=== PATIENT | male | born 1930 | race Caucasian/White ===

== ENCOUNTER 2016-03-24 11:44 | Day surgery (SDC) | payer MEDICARE, OTHER ==
[2016-03-22 11:14] VITALS: BMI 24.6
[~2016-03-24 11:44] MED LIST: HEPARIN SODIUM,PORCINE 5,000 UNIT/ML 1 ML VIAL SQ ONE; LACTATED RINGERS 1,000 ML IV SCH; LIDOCAINE 1% 20 ML VIAL (10MG/ML) FOR IV START INTRADERMA PRN; ceFAZolin 2 GM in SODIUM CHLORIDE 0.9% 100 ML IVPB ONE
[2016-03-24 12:00] VITALS: RESP 16; TEMP 98
--- NOTE | 2016-03-24 12:57 | P.GSHP ---
History of Present Illness H&P Date: 03/24/16 Chief Complaint: pancreatic cancer patient here today for Port-A-Cath placement. He underwent a recent Whipple procedure for pancreatic cancer. He has not had a port before. He has already had 2 courses of Gemzar. His IV access is quite poor. Past Medical History Past Medical History: Atrial Flutter, Cancer, CVA/TIA, Deep Vein Thrombosis (DVT ), Eye Disorder, GERD/Reflux, Hyperlipidemia, Hypertension, Prostate Disorder, Pulmonary Embolus (PE), Thyroid Disorder Additional Past Medical History / Comment(s): Pancreatic cancer diagnosed December 2015- TIA/CVA 01/23/16-occ speech issue, , bilateral feet and leg neuropathy, 12-31-13 GAEL PE'S, PE in 1995, bilateral GLAUCOMA, SKIN CA, chronic R lower leg edema History of Any Multi-Drug Resistant Organisms: None Reported Past Surgical History: Appendectomy, Heart Catheterization, Orthopedic Surgery, Prostate Surgery Additional Past Surgical History / Comment(s): ERCP, FARIBA/cardioversion, tito filter, bilateral CATARACTS, colonoscopy , sinus surgery GANGLION CYSTS REMOVED LT WRIST, numerous skin cancer removals.whipple surgery 01/21/16 at [place], Past Anesthesia/Blood Transfusion Reactions: No Reported Reaction Past Psychological History: No Psychological Hx Reported Additional Psychological History / Comment(s): . Smoking Status: Former smoker Past Alcohol Use History: Rare Additional Past Alcohol Use History / Comment(s): STARTED SMOKING AT AGE 9 SMOKED, 1PPD, QUIT 1971 Past Drug Use History: None Reported - Past Family History Brother(s) Additional Family Medical History / Comment(s): AAA with stent Father Family Medical History: Myocardial Infarction ([place]) Additional Family Medical History / Comment(s): [place] AT 75 Mother Family Medical History: No Reported History Additional Family Medical History / Comment(s): AT AGE 79, COMPLICATIONS FROM ALZHIEMERS. Medications and Allergies Home Medications Medication Instructions Recorded Confirmed Type Fluticasone Propionate [Flonase] 1 - 2 spray EA NOSTRIL HS PRN 12/31/13 History Latanoprost Ophth [Xalatan 0.005%] 1 drops BOTH EYES HS 12/31/13 03/22/16 History Pregabalin [Lyrica] 75 mg PO 1200 12/31/13 03/22/16 History Levothyroxine Sodium [Synthroid] 50 mcg PO DAILY 03/28/14 03/22/16 History Furosemide [Lasix] 20 mg PO DAILY@1200 12/20/15 03/22/16 History NIFEdipine [NIFEdipine ER] 60 mg PO DAILY 12/20/15 03/22/16 History Omeprazole 20 mg PO DAILY PRN 12/20/15 03/22/16 History Temazepam [Restoril] 15 mg PO HS PRN 12/20/15 03/24/16 History HYDROcodone/APAP 5-325MG [[place] 1 tab PO TID PRN 01/07/16 03/24/16 History 5-325] Multivitamins, Thera [Multivitamin] 0.5 tab PO DAILY 01/07/16 03/22/16 History Amiodarone [Cordarone] 100 mg PO DAILY 03/22/16 03/22/16 History Aspirin [Adult Low Dose Aspirin EC] 81 mg PO DAILY 03/22/16 03/22/16 History Pregabalin [Lyrica] 75 mg PO HS 03/22/16 03/22/16 History Simvastatin [Zocor] 20 mg PO HS 03/22/16 03/22/16 History Allergies Allergy/AdvReac Type Severity Reaction Status Date / Time morphine Allergy Confusion Verified 03/22/16 11:00 Surgical - Exam Vital Signs Temp Pulse Resp BP Pulse Ox 98 F 87 16 143/83 97 03/24/16 11:57 03/24/16 11:57 03/24/16 11:57 03/24/16 11:57 03/24/16 11:57 Physical exam: General: Well-developed, well-nourished HEENT: Normocephalic, sclerae nonicteric Abdomen: Nontender, nondistended, recent scars noted Extremities: No edema Neuro: Alert and oriented Assessment and Plan (1) Pancreatic cancer Narrative/Plan: Will proceed with Port-A-Cath placement at this time. Risks of bleeding, infection, pneumothorax, DVT, catheter malfunction were discussed. He understands and wishes to proceed. Status: Acute
[2016-03-24] MEDS ORDERED: MIDAZOLAM 2 MG/2 ML VIAL ONE (13:15)
[2016-03-24] MEDS ORDERED: fentaNYL (PF) 50 MCG/ML 2 ML AMP ONE (13:15)
[2016-03-24] MEDS ORDERED: PROPOFOL 10 MG/ML 20 ML VIAL IV ONE (13:15)
[2016-03-24] MEDS ORDERED: LIDOCAINE 1% INJ 10MG/ML (20 ML MDV) SQ ONE ×2 (13:36)
[2016-03-24] MEDS ORDERED: HEPARIN SODIUM,PORCINE 100 UNIT/ML 5 ML VIAL IV ONE ×2 (13:36)
[2016-03-24] MEDS ORDERED: HYDROcodone/APAP 5-325MG 1 EACH TAB PO PRN (14:04)
[2016-03-24] MEDS ORDERED: NALOXONE 0.4 MG/ML 1 ML VIAL IV PRN (14:04)
--- NOTE | 2016-03-24 14:06 | P.PCN ---
Date of Procedure: 03/24/16 Procedure(s) Performed: PREOPERATIVE DIAGNOSIS: Pancreatic cancer POSTOPERATIVE DIAGNOSIS: Same PROCEDURE: Port-A-Cath placement SURGEON: Chester EBL: Minimal ANESTHESIA: Sedation COMPLICATIONS: None OPERATIVE PROCEDURE: Patient was brought and placed on the operative table in the supine position. The patient was sedated per anesthesia that time. The chest and neck were prepped and draped in usual sterile fashion. The ultrasound probe was used to identify the location of the right internal jugular vein. The skin was localized with lidocaine. The Seldinger needle was advanced into the IJ under ultrasound guidance. The wire was advanced through the needle under fluoroscopic guidance into the superior vena cava. A port pocket was created in the right infraclavicular location. The catheter was tunneled from the wire entrance site to the port pocket. The port was then connected to the catheter. The dilator introducer was threaded over the guidewire. The guidewire and dilator were then removed. The catheter was advanced through the introducer and introducer was then removed. The tip was seen to be in the right atrial junction. Port was flushed with both saline and a Hep-Lock solution. There was good flow both in and out of the port. The port was sutured in underlying tissues using 3-0 silk sutures. The subcutaneous tissues were reapproximated using 3-0 Vicryl sutures and the skin at both locations using 4-0 Monocryl sutures. Steri-Strips and sterile dressings then applied. DISPOSITION: Stable to recovery room
--- NOTE | 2016-03-24 14:29 | XR ---
EXAMINATION TYPE: XR chest 1V confirm line [facility] DATE OF EXAM: 03/24/2016 2:21 PM COMPARISON: Prior chest x-ray third of January 2016 HISTORY: Status post central venous catheter placement TECHNIQUE: Single frontal view of the chest is obtained. FINDINGS: Port-A-Cath has been placed with the port in the right pectoral region, distal tip the cat heter via jugular approach is coursing toward the level of superior vena cava and cavoatrial junction , distal tip not well seen. No pneumothorax or pleural effusion. IMPRESSION: No evident complication status post central catheter placement.
--- NOTE | 2016-03-24 14:34 | FL ---
Fluoroscopy HISTORY: Pain 17 seconds fluoroscopy time supplied to the referring clinician. 2 intraoperative C-arm images docum ent the procedure. See dictated report from general surgery.
[2016-03-24 14:45] VITALS: BP 115/64; PULSE 87
== END 2016-03-24 15:08 | disposition home or self-care (01) ==
LOC: OR 11:44
PROVIDERS: ATTEND Surgery
DX: Z46.89 Encounter for fitting and adjustment of other specified devices (principal); C25.9 Malignant neoplasm of pancreas, unspecified; I10 Essential (primary) hypertension; N40.0 Benign prostatic hyperplasia without lower urinary tract symptoms; E78.5 Hyperlipidemia, unspecified; I48.92 Unspecified atrial flutter; K21.9 Gastro-esophageal reflux disease without esophagitis; Z86.718 Personal history of other venous thrombosis and embolism; Z86.711 Personal history of pulmonary embolism; Z79.891 Long term (current) use of opiate analgesic; Z79.899 Other long term (current) drug therapy; Z79.01 Long term (current) use of anticoagulants; Z79.82 Long term (current) use of aspirin; Z79.51 Long term (current) use of inhaled steroids; Z87.891 Personal history of nicotine dependence; Z82.49 Family history of ischemic heart disease and other diseases of the circulatory system; Z88.8 Allergy status to other drugs, medicaments and biological substances
CPT/HCPCS: 36556; 77001; C1788; J2250; J1644; J1642; J0690; J2001; J3010; J2704; 99152; 99153

== ENCOUNTER 2016-03-31 06:55 | Inpatient (IN) | payer MEDICARE, OTHER ==
--- NOTE | 2016-03-31 07:36 | ED ---
General Adult HPI - General Chief complaint: GI Bleed Stated complaint: rectal bleed Time Seen by Provider: 03/31/16 07:00 Source: patient, RN notes reviewed Mode of arrival: ambulatory Limitations: no limitations - History of Present Illness Initial comments: This is an 85-year-old male who presents emergency Department complaining he had some bright red blood when he had a bowel movement this morning. Patient states she's been constipated for quite a while now ever since he had a crit of cancer surgery. Patient states he has been on multiple laxatives and stool softeners but nothing appears to be working. Patient does not have any previous history of GI bleeds. Patient states long time ago he did have hemorrhoids but has not had any problem with that recently. Patient states his stool are very hard and small when he does have a bowel movement. Patient denies any lightheadedness or dizziness. Patient denies any fatigue or weakness. Patient denies any chest pain shortness of breath or difficulty breathing. Patient denies any abdominal pain. Patient denies headache patient denies numbness weakness. Patient denies any recent fever or chills - Related Data Home Medications Medication Instructions Recorded Confirmed Fluticasone Propionate [Flonase] 1 - 2 spray EA NOSTRIL HS PRN 12/31/13 03/31/16 Latanoprost Ophth [Xalatan 0.005%] 1 drops BOTH EYES HS 12/31/13 03/31/16 Pregabalin [Lyrica] 75 mg PO BID 12/31/13 03/31/16 Levothyroxine Sodium [Synthroid] 50 mcg PO DAILY 03/28/14 03/31/16 Furosemide [Lasix] 20 mg PO DAILY@1200 12/20/15 03/31/16 NIFEdipine [NIFEdipine ER] 60 mg PO DAILY 12/20/15 03/31/16 Omeprazole 20 mg PO DAILY PRN 12/20/15 03/31/16 Temazepam [Restoril] 15 mg PO HS PRN 12/20/15 03/31/16 HYDROcodone/APAP 5-325MG [[place] 1 tab PO TID PRN 01/07/16 03/31/16 5-325] Amiodarone [Cordarone] 100 mg PO DAILY 03/22/16 03/31/16 Aspirin [Adult Low Dose Aspirin EC] 81 mg PO DAILY 03/22/16 03/31/16 Simvastatin [Zocor] 20 mg PO HS 03/22/16 03/31/16 Hydrocodone/Acetaminophen [[place] 1 - 2 tab PO Q4HR PRN 03/31/16 03/31/16 5-325] Previous Rx's Medication Instructions Recorded Rivaroxaban [Xarelto] 15 mg PO W/SUPPER tab 12/22/15 Allergies Allergy/AdvReac Type Severity Reaction Status Date / Time morphine Allergy Confusion Verified 03/31/16 07:03 Review of Systems ROS Statement: Those systems with pertinent positive or pertinent negative responses have been documented in the HPI. ROS Other: All systems not noted in ROS Statement are negative. Past Medical History Past Medical History: Atrial Flutter, Cancer, CVA/TIA, Deep Vein Thrombosis (DVT ), Eye Disorder, GERD/Reflux, Hyperlipidemia, Hypertension, Prostate Disorder, Pulmonary Embolus (PE), Thyroid Disorder Additional Past Medical History / Comment(s): Pancreatic cancer diagnosed December 2015- TIA/CVA 01/23/16-occ speech issue, , bilateral feet and leg neuropathy, 12-31-13 GAEL PE'S, PE in 1995, bilateral GLAUCOMA, SKIN CA, chronic R lower leg edema History of Any Multi-Drug Resistant Organisms: None Reported Past Surgical History: Appendectomy, Heart Catheterization, Orthopedic Surgery, Prostate Surgery Additional Past Surgical History / Comment(s): ERCP, FARIBA/cardioversion, tito filter, bilateral CATARACTS, colonoscopy , sinus surgery GANGLION CYSTS REMOVED LT WRIST, numerous skin cancer removals.whipple surgery 01/21/16 at [place], Past Anesthesia/Blood Transfusion Reactions: No Reported Reaction Past Psychological History: No Psychological Hx Reported Additional Psychological History / Comment(s): . Smoking Status: Former smoker Past Alcohol Use History: Rare Additional Past Alcohol Use History / Comment(s): STARTED SMOKING AT AGE 9 SMOKED, 1PPD, QUIT 1970 Past Drug Use History: None Reported - Past Family History Brother(s) Additional Family Medical History / Comment(s): AAA with stent Father Family Medical History: Myocardial Infarction ([place]) Additional Family Medical History / Comment(s): [place] AT 75 Mother Family Medical History: No Reported History Additional Family Medical History / Comment(s): AT AGE 79, COMPLICATIONS FROM ALZHIEMERS. General Exam - General Exam Comments Initial Comments: GENERAL: Patient is well-developed and well-nourished. Patient is nontoxic and well- hydrated and is in no acute distress. Patient was sitting in bed reading this. When I entered the room ENT: Neck is soft and supple. No significant lymphadenopathy is noted. Oropharynx is clear. Moist mucous membranes. Neck has full range of motion without eliciting any pain. EYES: The sclera were anicteric and conjunctiva were pink and moist. Extraocular movements were intact and pupils were equal round and reactive to light. Eyelids were unremarkable. PULMONARY: Unlabored respirations. Good breath sounds bilaterally. No audible rales rhonchi or wheezing was noted. CARDIOVASCULAR: There is a regular rate and rhythm without any murmurs gallops or rubs. ABDOMEN: Soft and nontender with normal bowel sounds. No palpable organomegaly was noted. There is no palpable pulsatile mass. Rectal On rectal exam there was no obvious hemorrhoid noted I did a digital rectal examination done no bright red blood. SKIN: Skin is clear with no lesions or rashes and otherwise unremarkable. NEUROLOGIC: Patient is alert and oriented x3. Cranial nerves II through XII are grossly intact. Motor and sensory are also intact. Normal speech, volume and content. Symmetrical smile. MUSCULOSKELETAL: Normal extremities with adequate strength and full range of motion. No lower extremity swelling or edema. No calf tenderness. LYMPHATICS: No significant lymphadenopathy is noted PSYCHIATRIC: Normal psychiatric evaluation. Limitations: no limitations Course Vital Signs 03/31/16 03/31/16 07:00 08:51 Temperature 97.0 F L Pulse Rate 53 L 64 Respiratory 18 17 Rate Blood Pressure 107/65 113/75 O2 Sat by Pulse 93 L 96 Oximetry Medical Decision Making - Medical Decision Making Hemoglobin was 15.1 and January yesterday patient's hemoglobin was drawn it was 12.6 and today when we kasey it was 11.4 this in combination with the fact the patient is on Xarelto and is having bright red blood per rectum I thought it was important to keep the patient and make sure his hemoglobin was continuing to drop. I spoke with Dr. Dr. Shine and he agreed to admit the patient I wrote admitting orders. - Lab Data Result diagrams: 03/31/16 07:47 03/31/16 07:47 Lab Results 03/31/16 03/31/16 03/31/16 Range/Units 07:47 07:47 07:47 WBC 7.7 (3.8-10.6) k/uL RBC 3.93 L (4.30-5.90) m/uL Hgb 11.4 L (13.0-17.5) gm/dL Hct 35.0 L (39.0-53.0) % MCV 89.0 (80.0-100.0) fL MCH 29.1 (25.0-35.0) pg MCHC 32.7 (31.0-37.0) g/dL RDW 13.6 (11.5-15.5) % Plt Count 193 (150-450) k/uL Neutrophils % 90 % Lymphocytes % 6 % Monocytes % 4 % Eosinophils % 0 % Basophils % 0 % Neutrophils # 7.0 (1.3-7.7) k/uL Lymphocytes # 0.4 L (1.0-4.8) k/uL Monocytes # 0.3 (0-1.0) k/uL Eosinophils # 0.0 (0-0.7) k/uL Basophils # 0.0 (0-0.2) k/uL PT 12.6 H (9.0-12.0) sec INR 1.3 (<1.1) APTT 30.4 H (22.0-30.0) sec Sodium 136 L (137-145) mmol/L Potassium 4.2 (3.5-5.1) mmol/L Chloride 102 (98-107) mmol/L Carbon Dioxide 21 L (22-30) mmol/L Anion Gap 13 mmol/L BUN 14 (9-20) mg/dL Creatinine 0.91 (0.66-1.25) mg/dL Est GFR (MDRD) Af Amer >60 (>60 ml/min/1.73 sqM) Est GFR (MDRD) Non-Af >60 (>60 ml/min/1.73 sqM) Glucose 162 H (74-99) mg/dL Calcium 8.4 (8.4-10.2) mg/dL Total Bilirubin 0.9 (0.2-1.3) mg/dL AST 41 (17-59) U/L ALT 39 (21-72) U/L Alkaline Phosphatase 103 (38-126) U/L Total Protein 5.3 L (6.3-8.2) g/dL Albumin 2.8 L (3.5-5.0) g/dL Disposition Clinical Impression: Lower gastrointestinal hemorrhage Disposition: ADMITTED IP TO THIS HOSP Time of Disposition: 10:00
[2016-03-31 07:59] LABS: Basophils % (A) 0 %; CHCM 32.7; Eosinophils % (A) 0 %; HDW 2.52; HGB 11.4 gm/dL (13.0-17.5); Luc # (Auto) 0.02; Luc % (Auto) 0; Lymphocytes # (A) 0.4 k/uL (1.0-4.8); Lymphocytes % (A) 6 %; MCH 29.1 pg (25.0-35.0); MCHC 32.7 g/dL (31.0-37.0); Mean Platelet Volume 7.9; Monocytes # (A) 0.3 k/uL (0-1.0); Monocytes % (A) 4 %; Neutrophils % (A) 90 %; RBC 3.93 m/uL (4.30-5.90); RDW 13.6 % (11.5-15.5); WBC 7.7 k/uL (3.8-10.6); WBC (Perox) 8.09
[2016-03-31 08:08] LABS: ALT 39 U/L (21-72); AST 41 U/L (17-59); Alkaline Phosphatase 103 U/L (38-126); Anion Gap 13 mmol/L; Blood Urea Nitrogen 14 mg/dL (9-20); Calcium 8.4 mg/dL (8.4-10.2); Carbon Dioxide 21 mmol/L (22-30); Chloride 102 mmol/L (98-107); Glucose 162 mg/dL (74-99); INR 1.3 (<1.1); Non-African American GFR(MDRD) >60 (>60 ml/min/1.73 sqM); Partial Thromboplastin Time 30.4 sec (22.0-30.0); Potassium 4.2 mmol/L (3.5-5.1); Prothrombin Time 12.6 sec (9.0-12.0); Sodium 136 mmol/L (137-145); Total Bilirubin 0.9 mg/dL (0.2-1.3); Total Protein 5.3 g/dL (6.3-8.2)
--- NOTE | 2016-03-31 09:50 | XR ---
Abdomen HISTORY: Rectal bleeding, pain, pancreatic cancer Frontal view of the abdomen submitted on [address] abdomen and pelvis the 2015 Lung bases are clear. Patient is rotated. There may be spinal curvature, degenerative disc changes in the visualized lumbar spine.. Inferior vena cava filter is in place and is tilted. There is retained fecal debris present throughout the distribution of the colon. No pneumoperitoneum or bowel obstruct ion evident. IMPRESSION: No acute abnormalities evident.
[2016-03-31] MEDS ORDERED: SODIUM CHLORIDE 0.9% 1,000 ML IV ONE (10:00)
[2016-03-31] MEDS ORDERED: HYDROcodone/APAP 5-325MG 1 EACH TAB PO PRN ×2 (12:28→20:10)
[2016-03-31] MEDS ORDERED: TEMAZEPAM 15 MG CAP PO PRN (12:28)
[2016-03-31] MEDS ORDERED: PANTOPRAZOLE 40 MG TABLET PO PRN (12:28)
[2016-03-31] MEDS ORDERED: FLUTICASONE 50MCG/SPRAY NASAL 16GM EA NOSTRIL PRN (12:28)
[2016-03-31 15:23] LABS: Basophils % (A) 0 %; CH 28.8; CHCM 31.6; Eosinophils % (A) 0 %; HCT 35.6 % (39.0-53.0); HDW 2.44; HGB 11.5 gm/dL (13.0-17.5); Luc # (Auto) 0.05; Luc % (Auto) 1; Lymphocytes # (A) 0.8 k/uL (1.0-4.8); Lymphocytes % (A) 12 %; MCH 29.4 pg (25.0-35.0); MCHC 32.2 g/dL (31.0-37.0); MCV 91.3 fL (80.0-100.0); Mean Platelet Volume 7.2; Monocytes # (A) 0.2 k/uL (0-1.0); Monocytes % (A) 4 %; Neutrophils # (A) 5.6 k/uL (1.3-7.7); Neutrophils % (A) 83 %; RDW 14.4 % (11.5-15.5); WBC 6.8 k/uL (3.8-10.6); WBC (Perox) 6.95
[2016-03-31] MEDS: FUROSEMIDE 20 MG TAB PO SCH (15:52)
[2016-03-31] MEDS: AMIODARONE 100 MG TAB PO SCH (15:53)
[2016-03-31] MEDS: PREGABALIN 75 MG CAP PO SCH (20:08)
[2016-03-31] MEDS: LATANOPROST 0.005% OPHTH DROPS 2.5 ML BTL BOTH EYES SCH (20:08)
[2016-03-31 21:16] LABS: Basophils % (A) 0 %; CHCM 32.3; Eosinophils % (A) 1 %; HCT 31.3 % (39.0-53.0); HDW 2.48; Luc # (Auto) 0.02; Luc % (Auto) 1; Lymphocytes # (A) 0.9 k/uL (1.0-4.8); Lymphocytes % (A) 20 %; MCH 28.6 pg (25.0-35.0); MCHC 31.7 g/dL (31.0-37.0); MCV 90.2 fL (80.0-100.0); Mean Platelet Volume 7.5; Monocytes # (A) 0.2 k/uL (0-1.0); Monocytes % (A) 4 %; Neutrophils # (A) 3.3 k/uL (1.3-7.7); Neutrophils % (A) 75 %; RBC 3.47 m/uL (4.30-5.90); RDW 14.2 % (11.5-15.5); WBC 4.4 k/uL (3.8-10.6); WBC (Perox) 4.33
[2016-03-31] MEDS: ATORVASTATIN 10 MG TAB PO SCH (21:18)
[2016-03-31 21:30] LABS: HGB 9.9 gm/dL (13.0-17.5)
[2016-03-31 22:09] VITALS: RESP 16
[2016-04-01] MEDS: LEVOTHYROXINE 50 MCG TAB PO SCH (05:39)
[2016-04-01 06:42] LABS: Basophils % (A) 0 %; CH 28.8; CHCM 32.1; Eosinophils # (A) 0.1 k/uL (0-0.7); Eosinophils % (A) 1 %; HDW 2.52; HGB 9.7 gm/dL (13.0-17.5); Luc # (Auto) 0.02; Luc % (Auto) 1; Lymphocytes # (A) 0.7 k/uL (1.0-4.8); Lymphocytes % (A) 21 %; MCH 28.2 pg (25.0-35.0); MCHC 31.3 g/dL (31.0-37.0); Mean Platelet Volume 7.7; Monocytes # (A) 0.1 k/uL (0-1.0); Monocytes % (A) 2 %; Neutrophils # (A) 2.6 k/uL (1.3-7.7); Neutrophils % (A) 75 %; RBC 3.45 m/uL (4.30-5.90); RDW 14.2 % (11.5-15.5); WBC 3.5 k/uL (3.8-10.6); WBC (Perox) 3.31
[2016-04-01 07:01] LABS: ALT 50 U/L (21-72); AST 50 U/L (17-59); Alkaline Phosphatase 84 U/L (38-126); Anion Gap 4 mmol/L; Blood Urea Nitrogen 12 mg/dL (9-20); Calcium 7.6 mg/dL (8.4-10.2); Carbon Dioxide 27 mmol/L (22-30); Chloride 107 mmol/L (98-107); Glucose 82 mg/dL (74-99); Non-African American GFR(MDRD) >60 (>60 ml/min/1.73 sqM); Potassium 3.9 mmol/L (3.5-5.1); Sodium 138 mmol/L (137-145); Total Bilirubin 0.4 mg/dL (0.2-1.3); Total Protein 4.3 g/dL (6.3-8.2)
[2016-04-01] MEDS: AMIODARONE 100 MG TAB PO SCH (09:20)
[2016-04-01] MEDS: PREGABALIN 75 MG CAP PO SCH ×2 (09:20→20:08)
--- NOTE | 2016-04-01 09:47 | P.HPIM ---
History of Present Illness H&P Date: 03/31/16 Chief Complaint: Rectal bleed, pancreatic cancer, A. fib, hypertension, hyperlipidemia 85-year-old male one of Dr. Mathews patient with past medical history of A. fib, hypothyroidism, hypertension, previous history of CVA/TIA previous history of the venous thromboses and pulmonary embolism who had history of prostate cancer as well as was diagnosed with pancreatic cancer in December 2015 after he was admitted to or service in December for pancreatitis and ended up going for ERCP and diagnosis was made at the time patient was referred to [facility] and ended up having Whipple surgery and refer back to Dr. Willson for chemotherapy. Patient had chemotherapy the last 2 weeks with no major complication. Patient presented to the emergency department at [facility] this morning with complaint of rectal bleed and bright red blood per rectum was over half cup at the time with significant hemoglobin drop almost 2 g in the last 2 weeks with no finding of hemorrhoid at the time. Apparently had quite bit constipation and had part-time with his bowel movement yesterday. Patient was examined emergency department and with the significant drop in his hemoglobin being on anticoagulation with his current history decided to admit patient to the hospital we'll consult Dr. Cerda or possible sigmoidoscopy if needed and try to watch his hemoglobin in the next 24 hours. Continue supportive care and fluid resuscitation. Review of Systems Constitutional: Reports fatigue, Reports malaise, Reports poor appetite, Reports weight loss, Denies as per HPI, Denies anorexia, Denies chills, Denies chronic headaches, Denies chronic pain, Denies daytime sleepiness, Denies fever , Denies lethargy, Denies night sweats, Denies sweats, Denies weakness, Denies weight gain Eyes: bilateral as per HPI Ears: bilateral: decreased hearing Ears, nose, mouth and throat: Reports ant. neck pain, Reports nasal congestion, Reports nasal discharge, Reports neck fullness/pressure, Reports sinus pain, Reports sinus pressure, Denies as per HPI, Denies bleeding gums, Denies dental pain, Denies dysphagia, Denies epistaxis, Denies headache, Denies hoarseness, Denies mouth pain, Denies neck lump, Denies nose pain, Denies odynophagia, Denies post-nasal drip, Denies swelling in mouth, Denies swelling in throat, Denies sore throat, Denies vertigo, Denies voice changes Cardiovascular: Reports orthopnea, Reports palpitations, Denies as per HPI, Denies chest pain, Denies claudication, Denies decreased exercise tolerance, Denies dyspnea on exertion, Denies edema, Denies high blood pressure, Denies irregular heart beat, Denies leg edema, Denies lightheadedness, Denies paroxysmal nocturnal dyspnea, Denies phlebitis, Denies rapid heart beat, Denies shortness of breath, Denies syncope Respiratory: Denies as per HPI, Denies congestion, Denies cough, Denies cough with sputum, Denies dyspnea, Denies excessive sputum, Denies hemoptysis, Denies home oxygen, Denies pain, Denies pain on inspiration, Denies pleurisy, Denies respiratory infections, Denies sleep apnea, Denies snoring, Denies wheezing Gastrointestinal: Reports abdominal pain, Reports bloating, Reports BRBPR, Reports constipation, Reports nausea, Denies as per HPI, Denies belching, Denies change in bowel habits, Denies coffee ground emesis, Denies diarrhea, Denies dyspepsia, Denies early satiety, Denies excessive gas, Denies heartburn, Denies hematemesis, Denies hematochezia, Denies indigestion, Denies jaundice, Denies lactose intolerance, Denies loss of appetite, Denies melena, Denies vomiting Genitourinary: Denies as per HPI, Denies decreased libido, Denies difficulties fathering child, Denies discharge, Denies dysuria, Denies erectile dysfunction, Denies flank pain, Denies genital pain, Denies genital sores, Denies hematuria, Denies impotence, Denies incontinence, Denies kidney stones, Denies nocturia, Denies polyuria, Denies testicular lump, Denies testicular pain, Denies urinary frequency, Denies urinary hesitancy, Denies urinary retention Musculoskeletal: Reports leg numbness/tingling, Reports myalgias, Reports neck pain, Denies as per HPI, Denies arm numbness/tingling, Denies atrophy, Denies fractures, Denies frequent falls, Denies gait dysfunction, Denies hot joints, Denies limitation of motion, Denies loss of height, Denies low back pain, Denies morning stiffness, Denies muscle cramps, Denies muscle weakness, Denies neck stiffness, Denies prior amputations, Denies redness of joints, Denies shooting arm pain, Denies shooting leg pain Musculoskeletal: bilateral: ankle pain Integumentary: Reports rash, Reports sores, Denies as per HPI, Denies acne, Denies boils, Denies brittle nails, Denies change in hair/nails, Denies color changes, Denies darkening of skin, Denies depigmentation, Denies dryness, Denies foot/leg ulcers, Denies growths, Denies hirsutism, Denies lesions, Denies onychomycosis, Denies pruritus, Denies striae, Denies unusual bruising, Denies wounds Neurological: Reports numbness, Reports paresthesias, Reports tingling, Denies as per HPI, Denies aphasia, Denies ataxia, Denies balance difficulties, Denies burning pain, Denies change in mentation, Denies change in smell/taste, Denies change in speech, Denies confusion, Denies convulsions, Denies double vision, Denies gait dysfunction, Denies head injury, Denies headaches, Denies hearing difficulties, Denies lack of coordination, Denies loss of vision, Denies memory loss, Denies migraines, Denies motor disturbance, Denies paralysis, Denies seizures, Denies sensory deficit, Denies spasticity, Denies syncope, Denies tic , Denies transient paralysis, Denies tremors, Denies vertigo, Denies weakness, Denies visual changes Psychiatric: Reports anhedonia, Reports anxiety, Reports depression, Reports disorientation, Reports hopelessness, Reports memory loss, Denies as per HPI, Denies anxiety attacks, Denies change in appetite, Denies change in libido, Denies change in sleep habits, Denies confusion, Denies difficulty concentrating , Denies hallucinations, Denies hypersomnia, Denies insomnia, Denies irritability, Denies mood swings, Denies paranoia, Denies sadness/tearfulness, Denies sleep disturbances, Denies suicidal ideation Endocrine: Reports excessive thirst, Reports fatigue, Reports nocturia, Reports palpitations, Reports polydipsia, Denies as per HPI, Denies cold intolerance, Denies deepening of the voice, Denies excessive sweating, Denies flushing, Denies heat intolerance, Denies high blood sugars, Denies increase in ring/shoe/ hat size, Denies low blood sugars, Denies polyphagia, Denies polyuria, Denies proptosis, Denies recent glucocorticoid use, Denies thyroid mass, Denies weight change Hematologic/Lymphatic: Reports easy bruising, Denies as per HPI, Denies easy bleeding, Denies lymphadenopathy, Denies lymphedema, Denies thrombophilia Allergic/Immunologic: Reports allergic rhinitis, Denies as per HPI, Denies anaphylaxis, Denies angioedema, Denies gluten intolerance, Denies persistent infections, Denies seasonal allergies, Denies urticaria, Denies wheezing Past Medical History Past Medical History: Atrial Flutter, Cancer, CVA/TIA, Deep Vein Thrombosis (DVT ), Eye Disorder, GERD/Reflux, Hyperlipidemia, Hypertension, Prostate Disorder, Pulmonary Embolus (PE), Thyroid Disorder Additional Past Medical History / Comment(s): Pancreatic cancer diagnosed December 2015-whipple surgery/chemo-gemzar last received 03/30/16, TIA/CVA -occ speech issue, , bilateral feet and leg neuropathy, 12-31-13 GAEL PE'S, PE in 1995, DVT R leg, bilateral GLAUCOMA, SKIN CA, chronic R lower leg edema, constipation, BPH with surgery. History of Any Multi-Drug Resistant Organisms: None Reported Past Surgical History: Appendectomy, Heart Catheterization, Orthopedic Surgery, Prostate Surgery Additional Past Surgical History / Comment(s): ERCP, FARIBA/cardioversion, tito filter, bilateral CATARACTS, colonoscopy , sinus sx, GANGLION CYSTS REMOVED LT WRIST, numerous skin cancer removals, whipple surgery 01/21/16 at [place], 03/24/16 port a cath R subclavian. Past Anesthesia/Blood Transfusion Reactions: No Reported Reaction Past Psychological History: No Psychological Hx Reported Additional Psychological History / Comment(s): Pt resides with his spouse. Lately, he has been ambulating with a cane. He drives. No home care. Smoking Status: Former smoker Past Alcohol Use History: Rare Additional Past Alcohol Use History / Comment(s): STARTED SMOKING AT AGE 9 SMOKED, 1PPD, QUIT 1971 Past Drug Use History: None Reported - Past Family History Brother(s) Additional Family Medical History / Comment(s): AAA with stent Father Family Medical History: Myocardial Infarction ([place]) Additional Family Medical History / Comment(s): [place] AT 75 Mother Family Medical History: No Reported History Additional Family Medical History / Comment(s): AT AGE 79, COMPLICATIONS FROM ALZHIEMERS. Medications and Allergies Home Medications Medication Instructions Recorded Confirmed Type Fluticasone Propionate [Flonase] 1 - 2 spray EA NOSTRIL HS PRN 12/31/13 History Latanoprost Ophth [Xalatan 0.005%] 1 drops BOTH EYES HS 12/31/13 03/31/16 History Pregabalin [Lyrica] 75 mg PO BID 12/31/13 03/31/16 History Levothyroxine Sodium [Synthroid] 50 mcg PO DAILY 03/28/14 03/31/16 History Furosemide [Lasix] 20 mg PO DAILY@1200 12/20/15 03/31/16 History NIFEdipine [NIFEdipine ER] 60 mg PO DAILY 12/20/15 03/31/16 History Omeprazole 20 mg PO DAILY PRN 12/20/15 03/31/16 History Temazepam [Restoril] 15 mg PO HS PRN 12/20/15 03/31/16 History HYDROcodone/APAP 5-325MG [[place] 1 tab PO TID PRN 01/07/16 03/31/16 History 5-325] Amiodarone [Cordarone] 100 mg PO DAILY 03/22/16 03/31/16 History Aspirin [Adult Low Dose Aspirin EC] 81 mg PO DAILY 03/22/16 03/31/16 History Simvastatin [Zocor] 20 mg PO HS 03/22/16 03/31/16 History Hydrocodone/Acetaminophen [[place] 1 - 2 tab PO Q4HR PRN 03/31/16 03/31/16 History 5-325] Allergies Allergy/AdvReac Type Severity Reaction Status Date / Time morphine Allergy Confusion Verified 03/31/16 07:03 Physical Exam Vitals: Vital Signs Temp Pulse Pulse Resp BP BP Pulse Ox 03/31/16 15:00 97.5 F L 72 18 114/60 95 03/31/16 12:02 97 F L 64 18 128/63 100 03/31/16 11:00 97.1 F L 62 16 112/72 96 Intake and Output 03/31/16 03/31/16 03/31/16 06:59 14:59 22:59 Intake Total 1220 Balance 1220 Intake: IV 500 Sodium Chloride 0.9% 1, 500 000 ml @ 100 mls/hr IV . Q10H ONE Rx#:[id number] Oral 720 Other: Voiding Method Toilet # Voids 2 - Constitutional General appearance: no average body habitus, cooperative, no disheveled, no mild distress, no morbidly obese, no acute distress, no obese, no severe distress, no thin - EENT Eyes: no abnormal pupil, no anicteric sclerae, no disc margins sharp, no edentulous, no EOMI, no PERRLA, no fundus normal, no photophobia, no dentition normal, no poor dentition, no ptosis, no scleral icterus, normal appearance ENT: no hard of hearing, no hearing grossly normal, no NA/AT, normal oropharynx , no other, no pharyngeal erythema, no thrush, no tonsillar exudates, no tonsillar swelling Ears: bilateral: normal - Neck Neck: no lymphadenopathy, normal ROM, no other, no rigidity, no stridor, no thyromegaly Carotids: bilateral: upstroke normal Thyroid: bilateral: normal size - Respiratory Respiratory: bilateral: CTA - Cardiovascular Rhythm: regular Heart sounds: normal: S1, S2 Abnormal Heart Sounds: systolic murmur, S3 Gallop - Gastrointestinal Scar tissue from Whipple surgery in the upper abdominal region area. General gastrointestinal: decreased bowel sounds, normal bowel sounds, scaphoid - Integumentary Integumentary: no calor, no cellulitis, no cyanotic, no decreased turgor, no flushed, no jaundiced, normal, no normal turgor, pale, rash, no ulcer - Neurologic Neurologic: CNII-XII intact - Musculoskeletal Musculoskeletal: gait normal, generalized weakness, no strength equal bilaterally, no right sided weakness, no left sided weakness - Psychiatric Psychiatric: A&O x's 3, appropriate affect, no intact judgment & insight Results CBC & Chem 7: 04/01/16 06:26 04/01/16 06:26 Labs: Abnormal Lab Results - Last 24 Hours (Table) 03/31/16 Range/Units 14:40 RBC 3.90 L (4.30-5.90) m/uL Hgb 11.5 L (13.0-17.5) gm/dL Hct 35.6 L (39.0-53.0) % Lymphocytes # 0.8 L (1.0-4.8) k/uL Thrombosis Risk Factor Assmnt - DVT/VTE Prophylaxis DVT/VTE Prophylaxis: Pharmacologic Prophylaxis ordered, Mechanical Prophylaxis ordered - Choose All That Apply Any of the Below Risk Factors Present?: Yes Other Risk Factors: Yes Each Risk Factor Represents 2 Points: Malignancy Each Risk Factor Represents 3 Points: Age 75 years or older Other congenital or acquired thrombophilia - If yes, enter type in comment: No Thrombosis Risk Factor Assessment Total Risk Factor Score: 5 Thrombosis Risk Factor Assessment Level: High Risk Assessment and Plan Plan: 1 rectal bleed with bright red blood per rectum:Patient was hospitalized continue to watch his hemoglobin every 8-12 hours watch for any significant drop in any further bleeding continue fluid resuscitation and if hemoglobin drops significantly might require blood transfusion. We'll consult gastroenterology on standby for possible need for sigmoidoscopy or colonoscopy. 2 pancreatic cancer: Patient is currently on chemotherapy had surgery at [facility] and seen oncology regular basis. 3 history of DVT/PE: Patient is on anticoagulation with Xarelto 15 mg daily will continue medication and watch for any further bleed. 4 history of a flutter: Pulse rate has been well controlled lately still on amiodarone 100 mg daily and anticoagulation. 5 hypertension: Blood pressure remained well controlled on nifedipine 60 mg daily. 6 hypothyroidism: Has been on levothyroxine 50 g daily. 7 severe GERD: Has been on omeprazole 20 mg daily. 8 hyperlipidemia: On Zocor 20 mg daily. GI prophylaxis: On omeprazole. CODE STATUS: Full code. Expectation from this admission: Patient in the hospital for 1-2 nights.
--- NOTE | 2016-04-01 10:08 | P.CONS ---
History of Present Illness - Reason for Consult Consult date: 04/01/16 rectal bleeding Requesting physician: Chapo Shine - History of Present Illness 85-year-old gentleman patient of Dr. Mendez Mathews with a past medical history sigmoid diverticulosis, pancreatic carcinoma December 2015, DVT, PE/IVC filter, atrial fibrillation on Xarelto, peripheral neuropathy, abdominal aneurysm, hyperlipidemia, hypertension, GERD, CVA/TIA, and skin carcinoma. Status post Whipple January 2017 Dr. Deutsch [facility] with subsequent postoperative CVA without deficit presents with 1 time episode of painless rectal bleeding Monday night. He is currently receiving chemotherapy and his last treatment was Monday. He has been constant for the last month passing a bowel movement every few days difficult small firm brown stools. No recurrence of rectal bleeding since admission. Afebrile. Weight has been stable. Denies hematemesis or melena. Last dose of Xarelto was Monday. Hemoglobin on admission 11.4. MCV 89. Current hemoglobin 9.7. White count 3.5. Platelet 177. INR 1.3. BUN 12 creatinine 0.7. Colonoscopy [address] Gage reported sigmoid diverticulosis. Review of Systems Constitutional: Denies fever, chills, sweats, weight gain, or loss. HEENT: Negative for migraines, blurred vision or loss, earaches, drainage, tinnitus, oral mucosal lesions, dysphagia, or odynophagia. Cardiac: [place] filter. Atrial flutter. CVA/TIA. DVT. FARIBA. Hyperlipidemia. Hypertension. Negative for chest pain, arrhythmias, or palpitation. Respiratory: Negative for shortness of breath, hemoptysis, cough, or sputum production. Gastrointestinal: See HPI for pertinent findings. Genitourinary: Negative for hematuria, urgency, frequency, polyuria, dysuria, or penile discharge. Musculoskeletal: Negative for muscle aches, swelling, arthritis, and arthralgias. Neurologic: Negative for stroke or TIA. Endocrine: Negative for thyroid problems. Skin: Skin carcinoma. Negative for rash or itching. Psychiatric: Negative history for depression and anxiety All systems: negative (See HPI) Past Medical History Past Medical History: Atrial Flutter, Cancer, CVA/TIA, Deep Vein Thrombosis (DVT ), Eye Disorder, GERD/Reflux, Hyperlipidemia, Hypertension, Prostate Disorder, Pulmonary Embolus (PE), Thyroid Disorder Additional Past Medical History / Comment(s): Pancreatic cancer diagnosed December 2015-whipple surgery/chemo-gemzar last received 03/30/16, TIA/CVA -occ speech issue, , bilateral feet and leg neuropathy, 12-31-13 GAEL PE'S, PE in 1995, DVT R leg, bilateral GLAUCOMA, SKIN CA, chronic R lower leg edema, constipation, BPH with surgery. History of Any Multi-Drug Resistant Organisms: None Reported Past Surgical History: Appendectomy, Heart Catheterization, Orthopedic Surgery, Prostate Surgery Additional Past Surgical History / Comment(s): ERCP, FARIBA/cardioversion, tito filter, bilateral CATARACTS, colonoscopy , sinus sx, GANGLION CYSTS REMOVED LT WRIST, numerous skin cancer removals, whipple surgery 01/21/16 at [place], 03/24/16 port a cath R subclavian. Past Anesthesia/Blood Transfusion Reactions: No Reported Reaction Past Psychological History: No Psychological Hx Reported Additional Psychological History / Comment(s): Pt resides with his spouse. Lately, he has been ambulating with a cane. He drives. No home care. Smoking Status: Former smoker Past Alcohol Use History: Rare Additional Past Alcohol Use History / Comment(s): STARTED SMOKING AT AGE 9 SMOKED, 1PPD, QUIT 1970 Past Drug Use History: None Reported - Past Family History Brother(s) Additional Family Medical History / Comment(s): AAA with stent Father Family Medical History: Myocardial Infarction ([place]) Additional Family Medical History / Comment(s): [place] AT 75 Mother Family Medical History: No Reported History Additional Family Medical History / Comment(s): AT AGE 79, COMPLICATIONS FROM ALZHIEMERS. Medications and Allergies Home Medications Medication Instructions Recorded Confirmed Type Fluticasone Propionate [Flonase] 1 - 2 spray EA NOSTRIL HS PRN 12/31/13 History Latanoprost Ophth [Xalatan 0.005%] 1 drops BOTH EYES HS 12/31/13 03/31/16 History Pregabalin [Lyrica] 75 mg PO BID 12/31/13 03/31/16 History Levothyroxine Sodium [Synthroid] 50 mcg PO DAILY 03/28/14 03/31/16 History Furosemide [Lasix] 20 mg PO DAILY@1200 12/20/15 03/31/16 History NIFEdipine [NIFEdipine ER] 60 mg PO DAILY 12/20/15 03/31/16 History Omeprazole 20 mg PO DAILY PRN 12/20/15 03/31/16 History Temazepam [Restoril] 15 mg PO HS PRN 12/20/15 03/31/16 History HYDROcodone/APAP 5-325MG [[place] 1 tab PO TID PRN 01/07/16 03/31/16 History 5-325] Amiodarone [Cordarone] 100 mg PO DAILY 03/22/16 03/31/16 History Aspirin [Adult Low Dose Aspirin EC] 81 mg PO DAILY 03/22/16 03/31/16 History Simvastatin [Zocor] 20 mg PO HS 03/22/16 03/31/16 History Hydrocodone/Acetaminophen [[place] 1 - 2 tab PO Q4HR PRN 03/31/16 03/31/16 History 5-325] Allergies Allergy/AdvReac Type Severity Reaction Status Date / Time morphine Allergy Confusion Verified 03/31/16 07:03 Physical Exam Vitals: Vital Signs Temp Pulse Pulse Resp BP BP Pulse Ox 04/01/16 08:00 16 04/01/16 07:00 97.8 F 55 L 16 115/70 97 03/31/16 22:08 97.7 F 63 16 105/59 95 03/31/16 15:00 97.5 F L 72 18 114/60 95 03/31/16 12:02 97 F L 64 18 128/63 100 03/31/16 11:00 97.1 F L 62 16 112/72 96 Intake and Output 03/31/16 04/01/16 04/01/16 22:59 06:59 14:59 Intake Total 590 Output Total 300 1000 Balance 290 -1000 Intake: Oral 590 Output: Urine 300 1000 Other: Voiding Method Toilet Toilet Toilet General appearance: The patient is alert, oriented, in no acute distress. HET: Head is normocephalic and atraumatic. Pupils are equal and reactive. Oropharynx is clear without lesions. Neck: Supple without lymphadenopathy. Trachea midline. Heart: S1 S2. Regular rate and rhythm. Port-A-Cath without erythema or drainage. Lungs: No crackles or wheezes are heard. Abdomen: Soft, nontender, nondistended with bowel sounds. No peritoneal signs. No palpable organomegaly or masses. Extremities: Normal skin color and turgor. No cyanosis, rash, ulceration, clubbing, or edema. Radial and pedal pulses are 2/4 bilaterally. Neurological: No focal deficits. Strength and sensation are grossly intact. Rectal: No blood no palpable masses. Large amount of formed brown stool in rectal vault. No external hemorrhoids. Results CBC & Chem 7: 04/01/16 06:26 04/01/16 06:26 Labs: Abnormal Lab Results - Last 24 Hours (Table) 03/31/16 03/31/16 04/01/16 Range/Units 14:40 20:12 06:26 WBC 3.5 L (3.8-10.6) k/uL RBC 3.90 L 3.47 L 3.45 L (4.30-5.90) m/uL Hgb 11.5 L 9.9 L D 9.7 L (13.0-17.5) gm/dL Hct 35.6 L 31.3 L 31.0 L (39.0-53.0) % Lymphocytes # 0.8 L 0.9 L 0.7 L (1.0-4.8) k/uL Calcium (8.4-10.2) mg/dL Total Protein (6.3-8.2) g/dL Albumin (3.5-5.0) g/dL 04/01/16 Range/Units 06:26 WBC (3.8-10.6) k/uL RBC (4.30-5.90) m/uL Hgb (13.0-17.5) gm/dL Hct (39.0-53.0) % Lymphocytes # (1.0-4.8) k/uL Calcium 7.6 L (8.4-10.2) mg/dL Total Protein 4.3 L (6.3-8.2) g/dL Albumin 2.3 L (3.5-5.0) g/dL Assessment and Plan (1) Rectal bleeding Narrative/Plan: 85-year-old gentleman status post recent Whipple January 2016 for pancreatic cancer status post chemotherapy 2 days ago presents with episode of painless bright red blood per rectum Monday evening compounded with underlying constipation for the last month. Suspect bleeding is from diverticular disease however other pathology cannot be entirely excluded. History of DVT PE requiring anticoagulation. Status: Acute (2) Pancreatic cancer Status: Chronic Plan: 1. Continue to hold anticoagulation. 2. We'll proceed with colonoscopy evaluation tomorrow morning. Recommendations for constipation will be addressed after findings of colonoscopy. The steward dishwasher has discussed the risks, benefits and alternative therapies for the above-mentioned procedure and for both sedation/analgesia as well as necessary blood product administration, if indicated, as they pertain to this patient. The patient has indicated understanding and acceptance of the risks and procedures discussed. Thank you for this kind referral and the opportunity to participate in the care of your patient. This consultation was discussed with Dr. Mejia. The impression and plan of care have been directed as dictated.
[2016-04-01 13:00] VITALS: BMI 25.0
[2016-04-01] MEDS: FUROSEMIDE 20 MG TAB PO SCH (13:58)
[2016-04-01] MEDS ORDERED: PEG 3350-NA SULF,BICARB,CL/KCL 4,000 ML BOTTLE PO ONE (15:00)
--- NOTE | 2016-04-01 16:07 | P.PN ---
Subjective 85-year-old male one of Dr. Mathews patient with past medical history of A. 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 Willson for chemotherapy. Patient had chemotherapy the last 2 weeks with no major complication. Patient presented to the emergency department at [facility] this morning with complaint of rectal bleed and bright red blood per rectum was over half cup at the time with significant hemoglobin drop almost 2 g in the last 2 weeks with no finding of hemorrhoid at the time. Apparently had quite bit constipation and had part-time with his bowel movement yesterday. Patient was examined emergency department and with the significant drop in his hemoglobin being on anticoagulation with his current history decided to admit patient to the hospital we'll consult Dr. Cerda or possible sigmoidoscopy if needed and try to watch his hemoglobin in the next 24 hours. Continue supportive care and fluid resuscitation. 04/01: Repeat hemoglobin is 9.7. Patient is scheduled for a colonoscopy on April 02. Objective - Vital Signs Vital signs: Vital Signs Temp 97.8 F 04/01/16 07:00 Pulse 55 L 04/01/16 07:00 Resp 16 04/01/16 08:00 BP 115/70 04/01/16 07:00 Pulse Ox 97 04/01/16 07:00 Intake & Output 03/31/16 04/01/16 04/01/16 18:59 06:59 18:59 Intake Total 1220 590 Output Total 1300 Balance 1220 -710 Intake: IV 500 Sodium Chloride 0.9% 1, 500 000 ml @ 100 mls/hr IV . Q10H ONE Rx#:[id number] Oral 720 590 Output: Urine 1300 Other: Voiding Method Toilet Toilet Toilet # Voids 2 - Exam General appearance: no average body habitus, cooperative, no disheveled, no mild distress, no morbidly obese, no acute distress, no obese, no severe distress, no thin - EENT Eyes: no abnormal pupil, no anicteric sclerae, no disc margins sharp, no edentulous, no EOMI, no PERRLA, no fundus normal, no photophobia, no dentition normal, no poor dentition, no ptosis, no scleral icterus, normal appearance ENT: no hard of hearing, no hearing grossly normal, no NA/AT, normal oropharynx , no other, no pharyngeal erythema, no thrush, no tonsillar exudates, no tonsillar swelling Ears: bilateral: normal - Neck Neck: no lymphadenopathy, normal ROM, no other, no rigidity, no stridor, no thyromegaly Carotids: bilateral: upstroke normal Thyroid: bilateral: normal size - Respiratory Respiratory: bilateral: CTA - Cardiovascular Rhythm: regular Heart sounds: normal: S1, S2 Abnormal Heart Sounds: systolic murmur, S3 Gallop - Gastrointestinal Scar tissue from Whipple surgery in the upper abdominal region area. General gastrointestinal: decreased bowel sounds, normal bowel sounds, scaphoid - Integumentary Integumentary: no calor, no cellulitis, no cyanotic, no decreased turgor, no flushed, no jaundiced, normal, no normal turgor, pale, rash, no ulcer - Neurologic Neurologic: CNII-XII intact - Musculoskeletal Musculoskeletal: gait normal, generalized weakness, no strength equal bilaterally, no right sided weakness, no left sided weakness - Psychiatric Psychiatric: A&O x's 3, appropriate affect, no intact judgment & insight - Labs CBC & Chem 7: 04/01/16 06:26 04/01/16 06:26 Labs: Abnormal Lab Results - Last 24 Hours (Table) 03/31/16 03/31/16 04/01/16 Range/Units 14:40 20:12 06:26 WBC 3.5 L (3.8-10.6) k/uL RBC 3.90 L 3.47 L 3.45 L (4.30-5.90) m/uL Hgb 11.5 L 9.9 L D 9.7 L (13.0-17.5) gm/dL Hct 35.6 L 31.3 L 31.0 L (39.0-53.0) % Lymphocytes # 0.8 L 0.9 L 0.7 L (1.0-4.8) k/uL Calcium (8.4-10.2) mg/dL Total Protein (6.3-8.2) g/dL Albumin (3.5-5.0) g/dL 04/01/16 Range/Units 06:26 WBC (3.8-10.6) k/uL RBC (4.30-5.90) m/uL Hgb (13.0-17.5) gm/dL Hct (39.0-53.0) % Lymphocytes # (1.0-4.8) k/uL Calcium 7.6 L (8.4-10.2) mg/dL Total Protein 4.3 L (6.3-8.2) g/dL Albumin 2.3 L (3.5-5.0) g/dL Assessment and Plan Plan: 1 rectal bleed with bright red blood per rectum:Patient was hospitalized continue to watch his hemoglobin every 8-12 hours watch for any significant drop in any further bleeding continue fluid resuscitation and if hemoglobin drops significantly might require blood transfusion. We'll consult gastroenterology on standby for possible need for sigmoidoscopy or colonoscopy. Plan for colonoscopy on April 02 2 pancreatic cancer: Patient is currently on chemotherapy had surgery at [facility] and seen oncology regular basis. 3 history of DVT/PE: Patient is on anticoagulation with Xarelto 15 mg daily will continue medication and watch for any further bleed. 4 history of a flutter: Pulse rate has been well controlled lately still on amiodarone 100 mg daily and anticoagulation. 5 hypertension: Blood pressure remained well controlled on nifedipine 60 mg daily. 6 hypothyroidism: Has been on levothyroxine 50 g daily. 7 severe GERD: Has been on omeprazole 20 mg daily. 8 hyperlipidemia: On Zocor 20 mg daily. GI prophylaxis: On omeprazole. CODE STATUS: Full code. Discharge plan: Return home Impression and plan of care have been directed as dictated by the signing physician. Allyssa Tillman nurse practitioner acting as scribe for signing physician. Time with Patient: Greater than 30
[2016-04-01] MEDS ORDERED: ONDANSETRON 4 MG/2 ML VIAL IVP PRN (16:35)
--- NOTE | 2016-04-01 16:44 | P.CONS ---
History of Present Illness - Reason for Consult Consult date: 04/01/16 pancreatice cancer Requesting physician: Chapo Shine - Chief Complaint BRBPR - History of Present Illness Mr. Oreilly is a very pleasant male pt of Dr. Willsno who presented with atypical mid/lower chest pain in December which led to CT AP on 12/19/2015 which revealed 3.2cm soft tissue density at the head of pancreas. MRCP done on 2015 revealed 2.5cm mass at the head of pancreas, 12/30/2015 EUS revealed T2N0 disease, FNA was positive adenocarcinoma, CA19-9 was 1661. 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 His postoperative course with complicated by ischemic stroke. He has been on Xarelto. He is known to have cardiac arrhythmia and history of DVT in 1995. IVC filter was placed at that time. He had PE around 2013 and he has been on anticoagulation since then. Pt has been having trouble with constipation and has a history of hemorrhoid. He was doing well post chemo other then c/o fatigue, denied fever, nausea, vomiting, SOB, cough, indigestion, heartburn, swelling, rashes or pain. He was trying to manage constipation with meds but noted bright red blood from the rectum, he is on xarelto so he came to emergency room for evaluation. He denied any other bleeding, mild abd discomfort because he has to go to the bathroom, no other c/o. Review of Systems All systems: negative Constitutional: Reports as per HPI Past Medical History Past Medical History: Atrial Flutter, Cancer, CVA/TIA, Deep Vein Thrombosis (DVT ), Eye Disorder, GERD/Reflux, Hyperlipidemia, Hypertension, Prostate Disorder, Pulmonary Embolus (PE), Thyroid Disorder Additional Past Medical History / Comment(s): Pancreatic cancer diagnosed December 2015-whipple surgery/chemo-gemzar last received 03/30/16, TIA/CVA -occ speech issue, , bilateral feet and leg neuropathy, 12-31-13 GAEL PE'S, PE in 1995, DVT R leg, bilateral GLAUCOMA, SKIN CA, chronic R lower leg edema, constipation, BPH with surgery. History of Any Multi-Drug Resistant Organisms: None Reported Past Surgical History: Appendectomy, Heart Catheterization, Orthopedic Surgery, Prostate Surgery Additional Past Surgical History / Comment(s): ERCP, FARIBA/cardioversion, tito filter, bilateral CATARACTS, colonoscopy , sinus sx, GANGLION CYSTS REMOVED LT WRIST, numerous skin cancer removals, whipple surgery 01/21/16 at [place], 03/24/16 port a cath R subclavian. Past Anesthesia/Blood Transfusion Reactions: No Reported Reaction Past Psychological History: No Psychological Hx Reported Additional Psychological History / Comment(s): Pt resides with his spouse. Lately, he has been ambulating with a cane. He drives. No home care. Smoking Status: Former smoker Past Alcohol Use History: Rare Additional Past Alcohol Use History / Comment(s): STARTED SMOKING AT AGE 9 SMOKED, 1PPD, QUIT 1971 Past Drug Use History: None Reported - Past Family History Brother(s) Additional Family Medical History / Comment(s): AAA with stent Father Family Medical History: Myocardial Infarction (NE) Additional Family Medical History / Comment(s): NE AT 75 Mother Family Medical History: No Reported History Additional Family Medical History / Comment(s): AT AGE 79, COMPLICATIONS FROM ALZHIEMERS. Medications and Allergies Home Medications Medication Instructions Recorded Confirmed Type Fluticasone Propionate [Flonase] 1 - 2 spray EA NOSTRIL HS PRN 12/31/13 History Latanoprost Ophth [Xalatan 0.005%] 1 drops BOTH EYES HS 12/31/13 03/31/16 History Pregabalin [Lyrica] 75 mg PO BID 12/31/13 03/31/16 History Levothyroxine Sodium [Synthroid] 50 mcg PO DAILY 03/28/14 03/31/16 History Furosemide [Lasix] 20 mg PO DAILY@1200 12/20/15 03/31/16 History NIFEdipine [NIFEdipine ER] 60 mg PO DAILY 12/20/15 03/31/16 History Omeprazole 20 mg PO DAILY PRN 12/20/15 03/31/16 History Temazepam [Restoril] 15 mg PO HS PRN 12/20/15 03/31/16 History HYDROcodone/APAP 5-325MG [Rydal 1 tab PO TID PRN 01/07/16 03/31/16 History 5-325] Amiodarone [Cordarone] 100 mg PO DAILY 03/22/16 03/31/16 History Aspirin [Adult Low Dose Aspirin EC] 81 mg PO DAILY 03/22/16 03/31/16 History Simvastatin [Zocor] 20 mg PO HS 03/22/16 03/31/16 History Hydrocodone/Acetaminophen [Rydal 1 - 2 tab PO Q4HR PRN 03/31/16 03/31/16 History 5-325] Allergies Allergy/AdvReac Type Severity Reaction Status Date / Time morphine Allergy Confusion Verified 03/31/16 07:03 Physical Exam Vitals: Vital Signs Temp Pulse Resp BP Pulse Ox 04/01/16 08:00 16 04/01/16 07:00 97.8 F 55 L 16 115/70 97 03/31/16 22:08 97.7 F 63 16 105/59 95 03/31/16 15:00 97.5 F L 72 18 114/60 95 Intake and Output 03/31/16 04/01/16 04/01/16 22:59 06:59 14:59 Intake Total 590 Output Total 300 1000 Balance 290 -1000 Intake: Oral 590 Output: Urine 300 1000 Other: Voiding Method Toilet Toilet Toilet Weight 90.718 kg Patient Weight 04/02/16 06:59 Weight 90.718 kg - Constitutional General appearance: cooperative, no acute distress, thin - EENT Eyes: anicteric sclerae, PERRLA, normal appearance ENT: normal oropharynx - Neck Neck: no lymphadenopathy - Respiratory Respiratory: bilateral: CTA - Cardiovascular Heart sounds: normal: S1, S2 foot Peripheral Edema: bilateral: Trace - Gastrointestinal General gastrointestinal: no absent bowel sounds, decreased bowel sounds ( distant sounds), no distended, no hepatomegaly, no hyperactive bowel sounds, no normal bowel sounds, no organomegaly, no rigid, no scaphoid, soft, no splenomegaly, no tenderness, no umbilical hernia, no ventral hernia - Integumentary Integumentary: pale - Neurologic Neurologic: CNII-XII intact - Musculoskeletal Musculoskeletal: strength equal bilaterally - Psychiatric Psychiatric: A&O x's 3, appropriate affect, intact judgment & insight Results CBC & Chem 7: 04/01/16 06:26 04/01/16 06:26 Labs: Abnormal Lab Results - Last 24 Hours (Table) 03/31/16 03/31/16 04/01/16 Range/Units 14:40 20:12 06:26 WBC 3.5 L (3.8-10.6) k/uL RBC 3.90 L 3.47 L 3.45 L (4.30-5.90) m/uL Hgb 11.5 L 9.9 L D 9.7 L (13.0-17.5) gm/dL Hct 35.6 L 31.3 L 31.0 L (39.0-53.0) % Lymphocytes # 0.8 L 0.9 L 0.7 L (1.0-4.8) k/uL Calcium (8.4-10.2) mg/dL Total Protein (6.3-8.2) g/dL Albumin (3.5-5.0) g/dL 04/01/16 Range/Units 06:26 WBC (3.8-10.6) k/uL RBC (4.30-5.90) m/uL Hgb (13.0-17.5) gm/dL Hct (39.0-53.0) % Lymphocytes # (1.0-4.8) k/uL Calcium 7.6 L (8.4-10.2) mg/dL Total Protein 4.3 L (6.3-8.2) g/dL Albumin 2.3 L (3.5-5.0) g/dL Abdominal x-ray: report reviewed Assessment and Plan (1) Rectal bleeding Narrative/Plan: Did briefly discuss case with Dr. Mejia. Agree with colonoscopy. Pt has had trouble with constipation and hemorrhoids so we will await the findings. Pt platelet counts are adequate, WBC low normal but ANC is adequate at 2600. Pt is s/p chemo with gemzar last week but there is no contraindication to colonoscopy, labs are being rechecked in AM. Status: Acute (2) Pancreatic cancer Narrative/Plan: Pt is s/p 1st cycle of gemzar day 1,8,15. He has tolerated treatment rather well other then mild fatigue. His labs look good for 1 week out from chemo. Pt will be seen by Dr. Willson prior to resuming any treatment. Meds reviewed, supportive meds post chemo ordered. Status: Chronic
[2016-04-01] MEDS: SALT AND SODA MOUTHWASH 1,000 ML PO SCH ×2 (19:38→20:09)
[2016-04-01] MEDS: LATANOPROST 0.005% OPHTH DROPS 2.5 ML BTL BOTH EYES SCH (20:07)
[2016-04-01] MEDS: ATORVASTATIN 10 MG TAB PO SCH (20:08)
[2016-04-02] MEDS: LEVOTHYROXINE 50 MCG TAB PO SCH (06:15)
[2016-04-02 07:11] LABS: Basophils % (A) 0 %; CH 29.2; CHCM 32.4; Eosinophils # (A) 0.1 k/uL (0-0.7); Eosinophils % (A) 2 %; HCT 30.7 % (39.0-53.0); HDW 2.43; HGB 9.8 gm/dL (13.0-17.5); Luc # (Auto) 0.02; Luc % (Auto) 0; Lymphocytes # (A) 0.6 k/uL (1.0-4.8); Lymphocytes % (A) 11 %; MCH 28.9 pg (25.0-35.0); MCHC 31.9 g/dL (31.0-37.0); MCV 90.6 fL (80.0-100.0); Mean Platelet Volume 7.5; Monocytes # (A) 0.1 k/uL (0-1.0); Monocytes % (A) 2 %; Neutrophils # (A) 4.9 k/uL (1.3-7.7); Neutrophils % (A) 86 %; RBC 3.39 m/uL (4.30-5.90); RDW 14.4 % (11.5-15.5); WBC 5.7 k/uL (3.8-10.6); WBC (Perox) 6.05
[2016-04-02 07:22] LABS: ALT 49 U/L (21-72); AST 47 U/L (17-59); Alkaline Phosphatase 88 U/L (38-126); Anion Gap 5 mmol/L; Blood Urea Nitrogen 9 mg/dL (9-20); Calcium 7.7 mg/dL (8.4-10.2); Carbon Dioxide 27 mmol/L (22-30); Chloride 103 mmol/L (98-107); Glucose 86 mg/dL (74-99); Non-African American GFR(MDRD) >60 (>60 ml/min/1.73 sqM); Potassium 3.8 mmol/L (3.5-5.1); Sodium 135 mmol/L (137-145); Total Bilirubin 0.7 mg/dL (0.2-1.3); Total Protein 4.2 g/dL (6.3-8.2)
[2016-04-02] MEDS ORDERED: LIDOCAINE 1% INJ 10MG/ML (20 ML MDV) ONE (09:02)
[2016-04-02] MEDS ORDERED: PROPOFOL 10 MG/ML 20 ML VIAL IV ONE (09:02)
[2016-04-02] MEDS ORDERED: IV FLUID CONTINUATION 1,000 ML IV ONE (09:03)
--- NOTE | 2016-04-02 09:05 | P.PN ---
Subjective 85-year-old male one of Dr. Mathews patient with past medical history of A. 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 Willson for chemotherapy. Patient had chemotherapy the last 2 weeks with no major complication. Patient presented to the emergency department at [facility] this morning with complaint of rectal bleed and bright red blood per rectum was over half cup at the time with significant hemoglobin drop almost 2 g in the last 2 weeks with no finding of hemorrhoid at the time. Apparently had quite bit constipation and had part-time with his bowel movement yesterday. Patient was examined emergency department and with the significant drop in his hemoglobin being on anticoagulation with his current history decided to admit patient to the hospital we'll consult Dr. Cerda or possible sigmoidoscopy if needed and try to watch his hemoglobin in the next 24 hours. Continue supportive care and fluid resuscitation. 04/01: Repeat hemoglobin is 9.7. Patient is scheduled for a colonoscopy on April 02. 04/02: Repeat hemoglobin is 9.8. He is scheduled for colonoscopy this morning. He has been seen by oncology with plan for him to follow-up with Dr. Willson. Most likely patient will be ready for discharge tomorrow. Objective - Vital Signs Vital signs: Vital Signs Temp 98.2 F 04/02/16 07:00 Pulse 63 04/02/16 07:00 Resp 16 04/02/16 07:00 BP 99/59 04/02/16 07:00 Pulse Ox 92 L 04/02/16 07:00 Intake & Output 04/01/16 04/02/16 04/02/16 18:59 06:59 18:59 Intake Total 700 Output Total 800 950 Balance -100 -950 Weight 90.718 kg Intake: IV 700 Sodium Chloride 0.9% 1, 700 000 ml @ 100 mls/hr IV . Q10H ONE Rx#:[id number] Output: Urine 800 950 Other: Voiding Method Toilet Toilet # Voids 4 # Bowel Movements 4 - Exam General appearance: no average body habitus, cooperative, no disheveled, no mild distress, no morbidly obese, no acute distress, no obese, no severe distress, no thin - EENT Eyes: no abnormal pupil, no anicteric sclerae, no disc margins sharp, no edentulous, no EOMI, no PERRLA, no fundus normal, no photophobia, no dentition normal, no poor dentition, no ptosis, no scleral icterus, normal appearance ENT: no hard of hearing, no hearing grossly normal, no NA/AT, normal oropharynx , no other, no pharyngeal erythema, no thrush, no tonsillar exudates, no tonsillar swelling Ears: bilateral: normal - Neck Neck: no lymphadenopathy, normal ROM, no other, no rigidity, no stridor, no thyromegaly Carotids: bilateral: upstroke normal Thyroid: bilateral: normal size - Respiratory Respiratory: bilateral: CTA - Cardiovascular Rhythm: regular Heart sounds: normal: S1, S2 Abnormal Heart Sounds: systolic murmur, S3 Gallop - Gastrointestinal Scar tissue from Whipple surgery in the upper abdominal region area. General gastrointestinal: decreased bowel sounds, normal bowel sounds, scaphoid - Integumentary Integumentary: no calor, no cellulitis, no cyanotic, no decreased turgor, no flushed, no jaundiced, normal, no normal turgor, pale, rash, no ulcer - Neurologic Neurologic: CNII-XII intact - Musculoskeletal Musculoskeletal: gait normal, generalized weakness, no strength equal bilaterally, no right sided weakness, no left sided weakness - Psychiatric Psychiatric: A&O x's 3, appropriate affect, no intact judgment & insight - Labs CBC & Chem 7: 04/02/16 06:23 04/02/16 06:23 Labs: Abnormal Lab Results - Last 24 Hours (Table) 04/02/16 04/02/16 Range/Units 06:23 06:23 RBC 3.39 L (4.30-5.90) m/uL Hgb 9.8 L (13.0-17.5) gm/dL Hct 30.7 L (39.0-53.0) % Lymphocytes # 0.6 L (1.0-4.8) k/uL Sodium 135 L (137-145) mmol/L Calcium 7.7 L (8.4-10.2) mg/dL Total Protein 4.2 L (6.3-8.2) g/dL Albumin 2.2 L (3.5-5.0) g/dL Assessment and Plan Plan: 1 rectal bleed with bright red blood per rectum:Patient was hospitalized continue to watch his hemoglobin every 8-12 hours watch for any significant drop in any further bleeding continue fluid resuscitation and if hemoglobin drops significantly might require blood transfusion. We'll consult gastroenterology on standby for possible need for sigmoidoscopy or colonoscopy. Plan for colonoscopy on April 02 pancreatic cancer: Patient is currently on chemotherapy had surgery at [facility] and seen oncology regular basis. 3 history of DVT/PE: Patient is on anticoagulation with Xarelto 15 mg daily will continue medication and watch for any further bleed. 4 history of a flutter: Pulse rate has been well controlled lately still on amiodarone 100 mg daily and anticoagulation. 5 hypertension: Blood pressure remained well controlled on nifedipine 60 mg daily. 6 hypothyroidism: Has been on levothyroxine 50 g daily. 7 severe GERD: Has been on omeprazole 20 mg daily. 8 hyperlipidemia: On Zocor 20 mg daily. GI prophylaxis: On omeprazole. CODE STATUS: Full code. Discharge plan: Return home Impression and plan of care have been directed as dictated by the signing physician. Allyssa Tillman nurse practitioner acting as scribe for signing physician. Time with Patient: Greater than 30
--- NOTE | 2016-04-02 09:29 | P.PCN ---
Date of Procedure: 04/02/16 Procedure(s) Performed: BRIEF HISTORY: Patient is a 85-year-old pleasant white male, scheduled for an elective colonoscopy as a part of evaluation of intermittent rectal bleeding for the last 2 days' duration. The patient was diagnosed with pancreatic cancer underwent Whipple surgery in January 2016 and presently on chemotherapy. The last 3 days started having rectal bleeding once or twice a day. PROCEDURE PERFORMED: Colonoscopy. PREOPERATIVE DIAGNOSIS: Rectal bleeding. IV sedation per Anesthesia. PROCEDURE: After informed consent was obtained, the patient, was brought into the endoscopy unit. IV conscious sedation was administered by Anesthesia under continuous monitoring. Initially the Olympus CF-160 flexible video colonoscope was then inserted in the rectum, gradually advanced into the cecum without any difficulty. Careful examination was performed as the scope was gradually being withdrawn. Ileocecal valve and the appendiceal orifice were visualized and appeared normal. Prep was excellent. Mucosa of the cecum, ascending colon, transverse colon, descending colon, sigmoid colon, and rectum appeared normal. Moderate sigmoid diverticulosis seen. Retroflexion was performed in the rectum and small internal hemorrhoid were seen. The patient tolerated the procedure well. IMPRESSION: Normal-appearing colon from rectum to cecum with no evidence of colorectal neoplasia. Moderate sigmoidal diverticulosis. Small internal hemorrhoids. RECOMMENDATIONS: Findings of this examination were discussed with the patient as well as his family. He was advised to be a high-fiber diet, take fiber supplements on a regular basis and use [id number] MiraLAX as needed for the chronic constipation.
[2016-04-02] MEDS: SALT AND SODA MOUTHWASH 1,000 ML PO SCH ×4 (09:45→20:47)
[2016-04-02] MEDS: AMIODARONE 100 MG TAB PO SCH (10:06)
[2016-04-02] MEDS: PREGABALIN 75 MG CAP PO SCH ×2 (10:10→20:45)
[2016-04-02] MEDS: FUROSEMIDE 20 MG TAB PO SCH (15:12)
[2016-04-02] MEDS ORDERED: RIVAROXABAN 15 MG TAB PO SCH (17:30)
[2016-04-02] MEDS: LATANOPROST 0.005% OPHTH DROPS 2.5 ML BTL BOTH EYES SCH (20:45)
[2016-04-02] MEDS: ATORVASTATIN 10 MG TAB PO SCH (20:45)
[2016-04-03 06:20] LABS: Basophils % (A) 0 %; CH 29.2; CHCM 32.2; Eosinophils # (A) 0.2 k/uL (0-0.7); Eosinophils % (A) 3 %; HCT 31.2 % (39.0-53.0); HDW 2.52; HGB 9.7 gm/dL (13.0-17.5); Luc # (Auto) 0.02; Luc % (Auto) 0; Lymphocytes # (A) 0.5 k/uL (1.0-4.8); Lymphocytes % (A) 8 %; MCH 28.3 pg (25.0-35.0); MCHC 31.2 g/dL (31.0-37.0); MCV 90.9 fL (80.0-100.0); Mean Platelet Volume 7.9; Monocytes # (A) 0.1 k/uL (0-1.0); Monocytes % (A) 1 %; Neutrophils # (A) 4.7 k/uL (1.3-7.7); Neutrophils % (A) 88 %; RBC 3.43 m/uL (4.30-5.90); RDW 14.6 % (11.5-15.5); WBC 5.3 k/uL (3.8-10.6)
[2016-04-03] MEDS: LEVOTHYROXINE 50 MCG TAB PO SCH (06:25)
[2016-04-03 06:35] LABS: ALT 50 U/L (21-72); AST 48 U/L (17-59); Alkaline Phosphatase 85 U/L (38-126); Anion Gap 6 mmol/L; Blood Urea Nitrogen 9 mg/dL (9-20); Calcium 7.9 mg/dL (8.4-10.2); Carbon Dioxide 25 mmol/L (22-30); Chloride 105 mmol/L (98-107); Glucose 84 mg/dL (74-99); Non-African American GFR(MDRD) >60 (>60 ml/min/1.73 sqM); Potassium 3.8 mmol/L (3.5-5.1); Sodium 136 mmol/L (137-145); Total Bilirubin 0.6 mg/dL (0.2-1.3); Total Protein 4.2 g/dL (6.3-8.2)
[2016-04-03 07:24] VITALS: BP 124/69; PULSE 63; TEMP 98.4
[2016-04-03] MEDS: AMIODARONE 100 MG TAB PO SCH (08:28)
[2016-04-03] MEDS: SALT AND SODA MOUTHWASH 1,000 ML PO SCH (08:29)
[2016-04-03] MEDS: PREGABALIN 75 MG CAP PO SCH (08:29)
--- NOTE | 2016-04-03 10:57 | PN ---
DATE OF SERVICE: 04/03/2016 REQUESTING PHYSICIAN: Dr. Shine The patient is an 85-year-old pleasant, white male admitted to the hospital with acute lower gastrointestinal bleed. He underwent a colonoscopy yesterday which showed a small internal hemorrhoids and scattered sigmoid diverticulosis. Patient since yesterday had no further episodes of bleeding. He is doing much better. He reports no abdominal pain. On physical examination, appears comfortable in no apparent distress. Vitals as are stable. Blood pressure 125/73, pulse rate 58, temperature 97.6. HEENT: Unremarkable. Conjunctivae pink. Sclerae anicteric. Oral cavity, no lesions. NECK: No JVD or lymph node enlargement. CHEST: Clear to auscultation. HEART: Regular rate and rhythm. ABDOMEN: Soft. Bowel sounds are positive. No organomegaly. EXTREMITIES: No pedal edema. SKIN: No rashes. NEURO: Alert and oriented x3. No focal deficits. Labs done today: Hemoglobin is 9.7, WBC 5.3, and platelets are normal. IMPRESSION: 1. Acute lower gastrointestinal bleed secondary to bleeding from internal hemorrhoids related to chronic constipation. Colonoscopy yesterday showed small hemorrhoids and diverticulosis. 2. History of deep venous thrombosis and pulmonary embolism in the past, presently on Xarelto, which has been restarted yesterday after the colonoscopy. 3. History of pancreatic cancer for which he is status post Whipple surgery in January 2016, presently undergoing chemotherapy. RECOMMENDATIONS: 1. I had a lengthy discussion with the patient about management of constipation and suggested that use [id number] MiraLAX one scoop twice daily as needed for constipation. 2. Continue with Xarelto. 3. The patient can be discharged home today. No need for an outpatient follow up unless he has any problems. Thank you for this consultation.
[2016-04-03] MEDS: FUROSEMIDE 20 MG TAB PO SCH (12:55)
--- NOTE | 2016-04-08 11:07 | P.DS ---
Providers Date of admission: 03/31/16 10:01 Expected date of discharge: 04/03/16 Attending physician: Chapo Shine Consults: 03/31/16 12:31 Consult Physician Routine Consulting Provider: Yaakov Boles Consult Reason/Comments: pancreatic cancer Do you want consulting provider notified?: Yes Consult Physician Routine Consulting Provider: Lois Mejia Consult Reason/Comments: GIB Do you want consulting provider notified?: Yes Primary care physician: [facility] Course: 85-year-old male one of Dr. Mathews patient with past medical history of A. fib, hypothyroidism, hypertension, previous history of CVA/TIA previous history of the venous thromboses and pulmonary embolism who had history of prostate cancer as well as was diagnosed with pancreatic cancer in December 2015 after he was admitted to or service in December for pancreatitis and ended up going for ERCP and diagnosis was made at the time patient was referred to [facility] and ended up having Whipple surgery and refer back to Dr. Willson for chemotherapy. Patient had chemotherapy the last 2 weeks with no major complication. Patient presented to the emergency department at [facility] this morning with complaint of rectal bleed and bright red blood per rectum was over half cup at the time with significant hemoglobin drop almost 2 g in the last 2 weeks with no finding of hemorrhoid at the time. Apparently had quite bit constipation and had part-time with his bowel movement yesterday. Patient was examined emergency department and with the significant drop in his hemoglobin being on anticoagulation with his current history decided to admit patient to the hospital we'll consult Dr. Cerda or possible sigmoidoscopy if needed and try to watch his hemoglobin in the next 24 hours. Continue supportive care and fluid resuscitation. 04/01: Repeat hemoglobin is 9.7. Patient is scheduled for a colonoscopy on April 02. 04/02: Repeat hemoglobin is 9.8. He is scheduled for colonoscopy this morning. He has been seen by oncology with plan for him to follow-up with Dr. Willson. Most likely patient will be ready for discharge tomorrow. 04/03: Patient underwent colonoscopy on April 02. Normal-appearing colon from rectum to cecum with no evidence of colorectal neoplasia. Moderate sigmoidal diverticulosis. Small internal hemorrhoids. Patient was advised for a high fiber diet, take fiber supplements on a regular basis and use [id number] MiraLAX as needed for chronic constipation. He has had no further episodes of bleeding. He is continued on Xarelto. Repeat hemoglobin 9.7. Discharge diagnoses: 1 rectal bleed with bright red blood per rectum with acute blood loss anemia with 2 g drop in hemoglobin, not requiring transfusion 2 pancreatic cancer 3 history of DVT and PE 4 history of a flutter chronic 5 hypertension 6 hypothyroidism 7 severe GERD 8 hyperlipidemia Discharge plan: Return home Impression and plan of care have been directed as dictated by the signing physician. Allyssa Tillman nurse practitioner acting as scribe for signing physician. Patient Condition at Discharge: Good Plan - Discharge Summary New Discharge Prescriptions: L.acidoph,Paracasei, B.lactis [Probiotic] 1 each PO DAILY #30 capsule Polyethylene Glycol 3350 [Miralax] 17 gm PO DAILY #30 packet Discharge Medication List Fluticasone Propionate [Flonase] 1 - 2 spray EA NOSTRIL HS PRN 12/31/13 [History ] Latanoprost Ophth [Xalatan 0.005%] 1 drops BOTH EYES HS 12/31/13 [History] Pregabalin [Lyrica] 75 mg PO BID 12/31/13 [History] Levothyroxine Sodium [Synthroid] 50 mcg PO DAILY 03/28/14 [History] Furosemide [Lasix] 20 mg PO DAILY@1200 12/20/15 [History] NIFEdipine [NIFEdipine ER] 60 mg PO DAILY 12/20/15 [History] Omeprazole 20 mg PO DAILY PRN 12/20/15 [History] Temazepam [Restoril] 15 mg PO HS PRN 12/20/15 [History] Rivaroxaban [Xarelto] 15 mg PO W/SUPPER tab 12/22/15 [Rx] HYDROcodone/APAP 5-325MG [[place] 5-325] 1 tab PO TID PRN 01/07/16 [History] Amiodarone [Cordarone] 100 mg PO DAILY 03/22/16 [History] Aspirin [Adult Low Dose Aspirin EC] 81 mg PO DAILY 03/22/16 [History] Simvastatin [Zocor] 20 mg PO HS 03/22/16 [History] Hydrocodone/Acetaminophen [[place] 5-325] 1 - 2 tab PO Q4HR PRN 03/31/16 [History] L.acidoph,Paracasei, B.lactis [Probiotic] 1 each PO DAILY #30 capsule 04/02/16 [ Rx] Polyethylene Glycol 3350 [Miralax] 17 gm PO DAILY #30 packet 04/02/16 [Rx] Follow up Appointment(s)/Referral(s): Mendez Mathews MD [Primary Care Provider] - 1-2 days Ny Willson MD [STAFF PHYSICIAN] - 1 Week Patient Instructions/Handouts: Polyethylene Glycol 3350 (By mouth), Probiotic ( By mouth), Gastrointestinal Bleeding (DC), Constipation (DC), Pancreatic Cancer (DC) Discharge Disposition: HOME SELF-CARE
--- NOTE | 2016-04-11 13:13 | CDI ---
In responding to this query, please exercise your independent professional judgment. The [facility] Coding Staff and Clinical Documentation Specialists appreciate your assistance in clarifying documentation, maintaining compliance with coding guidelines, accurately documenting patients condition and capturing severity of illness. The fact that a question is asked does not imply that any particular answer is desired or expected. Communication forms are a method of clarifying documentation and are not made part of the Legal Health Record. Thank you in advance for your clarification. Last Revision, January 2015 Date: 04/11/2016 12:59:00 PM From: Mary Ann Torres Phone: Admit Date: 03/31/2016 10:01:00 AM Patient Name: Basilio Oreilly Visit Number: [id number] Discharge Date: Dr. Chapo Shine The patient presented to the ED with rectal bleed. Over the past two weeks, she has had significant drop in hemoglobin. Colonoscopy was performed on 04/02/[address] Mejia which showed moderate sigmoid diverticulosis and small internal hemorrhoids. In your professional opinion, please clarify if the rectal bleed is related to: Internal hemorrhoids Sigmoid diverticulosis Internal hemorrhoids and diverticulosis Other Unable to determine Please document in your progress notes and discharge summary in order to capture severity of illness and risk of mortality. Include clinical findings that support your diagnosis. FYI: Press F11 to launch patient chart. Place X here if this finding has no clinical significance, is not applicable or if you are not able to provide any additional documentation. MTDD
== END 2016-04-03 13:00 | disposition home or self-care (01) | DRG 394 ==
LOC: EC 06:55 → 5MS5E 10:01 → 5ONC 12:06
PROVIDERS: ADMIT Internal Medicine Geriatric Medicine; ATTEND Internal Medicine Geriatric Medicine
PROC: 0DJD8ZZ Inspection of Lower Intestinal Tract, Via Natural or Artificial Opening Endoscopic (ICD-10-PCS; principal; 2016-04-02 08:00)
DX: K64.8 Other hemorrhoids (principal); C25.9 Malignant neoplasm of pancreas, unspecified; I48.91 Unspecified atrial fibrillation; D62 Acute posthemorrhagic anemia; I10 Essential (primary) hypertension; K21.9 Gastro-esophageal reflux disease without esophagitis; E03.9 Hypothyroidism, unspecified; E78.5 Hyperlipidemia, unspecified; H40.9 Unspecified glaucoma; K57.30 Diverticulosis of large intestine without perforation or abscess without bleeding; K59.09 Other constipation; Z79.01 Long term (current) use of anticoagulants; Z79.82 Long term (current) use of aspirin; Z82.49 Family history of ischemic heart disease and other diseases of the circulatory system; Z85.46 Personal history of malignant neoplasm of prostate; Z85.828 Personal history of other malignant neoplasm of skin; Z86.711 Personal history of pulmonary embolism; Z86.718 Personal history of other venous thrombosis and embolism; Z86.73 Personal history of transient ischemic attack (TIA), and cerebral infarction without residual deficits; Z87.891 Personal history of nicotine dependence; Z90.411 Acquired partial absence of pancreas; Z92.21 Personal history of antineoplastic chemotherapy; Z79.899 Other long term (current) drug therapy
CPT/HCPCS: 36415; 74000; 80053; 85025; 85610; 85730; 99153; 99285

== ENCOUNTER 2016-06-03 15:28 | Emergency (ER) | payer MEDICARE, OTHER ==
[2016-06-03] MEDS ORDERED: ACETAMINOPHEN TAB 500 MG TAB PO STA (15:54)
[2016-06-03] MEDS ORDERED: SODIUM CHLORIDE 0.9% 1,000 ML IV STA (15:56)
--- NOTE | 2016-06-03 16:01 | ED ---
General Adult HPI - General Chief complaint: Weakness Stated complaint: weakness Time Seen by Provider: 06/03/16 15:44 Source: patient, EMS, RN notes reviewed Mode of arrival: EMS Limitations: no limitations - History of Present Illness Initial comments: Patient is a pleasant 85-year-old male presenting to the emergency Department with generalized weakness. Patient states symptoms may have been for the past couple of days however more noticeable last night. Patient complains of chills and myalgias. Patient has had sinus congestion. Patient has sinus discomfort. Occasional cough. No dyspnea. No abdominal pain. Patient is post Whipple procedure approximately 4 months ago without complications. Patient did have chemotherapy following this however did not tolerate it well and was discontinued. Whipple procedure was for pancreatic cancer which they are told was fully removed. - Related Data Home Medications Medication Instructions Recorded Confirmed Fluticasone Propionate [Flonase] 1 spray EA NOSTRIL HS 12/31/13 06/03/16 Latanoprost Ophth [Xalatan 0.005%] 1 drops BOTH EYES HS 12/31/13 06/03/16 Pregabalin [Lyrica] 75 mg PO BID@1200,2100 12/31/13 06/03/16 Levothyroxine Sodium [Synthroid] 50 mcg PO -BRKFST 03/28/14 06/03/16 Furosemide [Lasix] 20 mg PO DAILY@1200 12/20/15 06/03/16 NIFEdipine [NIFEdipine ER] 60 mg PO -BRKFST 12/20/15 06/03/16 Omeprazole 20 mg PO DAILY PRN 12/20/15 06/03/16 Temazepam [Restoril] 15 mg PO HS PRN 12/20/15 06/03/16 Amiodarone [Cordarone] 100 mg PO -BRKFST 03/22/16 06/03/16 Aspirin [Adult Low Dose Aspirin EC] 81 mg PO PC-BRKFST 03/22/16 06/03/16 Simvastatin [Zocor] 20 mg PO HS 03/22/16 06/03/16 Cyanocobalamin (Vitamin B-12) 1,000 mcg PO DAILY@1200 06/03/16 06/03/16 [Vitamin B-12] Docusate [Colace] 100 mg PO PC-SUPPER 06/03/16 06/03/16 L.acidoph,Paracasei, B.lactis 1 cap PO PC-SUPPER 06/03/16 06/03/16 [Probiotic] Lidocaine 4% Cream [Lmx 4] 1 applic TOPICAL DAILY PRN 06/03/16 06/03/16 Polyethylene Glycol 3350 [Miralax] 17 gm PO PC-BRKFST 06/03/16 06/03/16 Prochlorperazine [Compazine] 10 mg PO Q6H PRN 06/03/16 06/03/16 Rivaroxaban [Xarelto] 15 mg PO PC-SUPPER 06/03/16 06/03/16 Previous Rx's Medication Instructions Recorded Levofloxacin [Levaquin] 250 mg PO DAILY #9 tab 06/03/16 Allergies Allergy/AdvReac Type Severity Reaction Status Date / Time morphine Allergy shaking Verified 06/03/16 15:57 Review of Systems ROS Statement: Those systems with pertinent positive or pertinent negative responses have been documented in the HPI. ROS Other: All systems not noted in ROS Statement are negative. Constitutional: Reports: fever, chills Eyes: Denies: eye pain ENT: Reports: congestion. Denies: ear pain Respiratory: Reports: cough. Denies: dyspnea Cardiovascular: Denies: chest pain Endocrine: Reports: fatigue Gastrointestinal: Denies: abdominal pain Genitourinary: Denies: dysuria Musculoskeletal: Denies: back pain Skin: Denies: rash Neurological: Denies: weakness Past Medical History Past Medical History: Atrial Flutter, Cancer, CVA/TIA, Deep Vein Thrombosis (DVT ), Eye Disorder, GERD/Reflux, Hyperlipidemia, Hypertension, Prostate Disorder, Pulmonary Embolus (PE), Thyroid Disorder Additional Past Medical History / Comment(s): Pancreatic cancer diagnosed December 2015-whipple surgery/chemo-gemzar last received 03/30/16, TIA/CVA -occ speech issue, , bilateral feet and leg neuropathy, 12-31-13 GAEL PE'S, PE in 1995, DVT R leg, bilateral GLAUCOMA, SKIN CA, chronic R lower leg edema, constipation, BPH with surgery. History of Any Multi-Drug Resistant Organisms: None Reported Past Surgical History: Appendectomy, Heart Catheterization, Orthopedic Surgery, Prostate Surgery Additional Past Surgical History / Comment(s): ERCP, FARIBA/cardioversion, tito filter, bilateral CATARACTS, colonoscopy , sinus sx, GANGLION CYSTS REMOVED LT WRIST, numerous skin cancer removals, whipple surgery 01/21/16 at [place], 03/24/16 port a cath R subclavian. Past Anesthesia/Blood Transfusion Reactions: No Reported Reaction Past Psychological History: No Psychological Hx Reported Additional Psychological History / Comment(s): Pt resides with his spouse. Lately, he has been ambulating with a cane. He drives. No home care. Smoking Status: Former smoker Past Alcohol Use History: Rare Additional Past Alcohol Use History / Comment(s): STARTED SMOKING AT AGE 9 SMOKED, 1PPD, QUIT 1970 Past Drug Use History: None Reported - Past Family History Brother(s) Additional Family Medical History / Comment(s): AAA with stent Father Family Medical History: Myocardial Infarction (AL) Additional Family Medical History / Comment(s): AL AT 75 Mother Family Medical History: No Reported History Additional Family Medical History / Comment(s): AT AGE 79, COMPLICATIONS FROM ALZHIEMERS. General Exam Limitations: no limitations General appearance: alert, in no apparent distress Head exam: Present: atraumatic Eye exam: Present: normal appearance ENT exam: Present: normal oropharynx, other (Tenderness over the frontal and ethmoid and maxillary sinuses.) Neck exam: Present: normal inspection. Absent: meningismus Respiratory exam: Present: normal lung sounds bilaterally Cardiovascular Exam: Present: regular rate, normal rhythm GI/Abdominal exam: Present: soft. Absent: tenderness Extremities exam: Present: normal inspection. Absent: pedal edema, calf tenderness Neurological exam: Present: alert, CN II-XII intact. Absent: motor sensory deficit Expanded Motor strength exam: RUE: 5, LUE: 5, RLE: 5, LLE: 5 Psychiatric exam: Present: normal affect, normal mood Skin exam: Absent: rash Course Vital Signs 06/03/16 06/03/16 06/03/16 15:33 16:21 16:58 Temperature 103.1 F H 102.1 F H Pulse Rate 82 86 82 Respiratory 16 20 20 Rate Blood Pressure 128/67 129/74 115/72 O2 Sat by Pulse 95 92 L 93 L Oximetry 06/03/16 18:13 Temperature 100.8 F H Pulse Rate Respiratory Rate Blood Pressure O2 Sat by Pulse 93 L Oximetry EKG Findings - EKG Comments: EKG Findings:: Normal sinus rhythm at 82. Normal intervals. Normal axis. Septal Q waves. No acute ST change. Motion artifact is present. Medical Decision Making - Medical Decision Making Patient reevaluated and resting comfortably in bed. Patient was able to get up and walk without any difficulty. Patient feels much better. Case was discussed in detail with Dr. Aguilar, covering for Dr. Mathews. He does recommend discharge with Levaquin 250 mg daily and follow-up beginning of the week. Patient states he does have an appointment Monday with a new physician. - Lab Data Result diagrams: 06/03/16 16:15 06/03/16 16:15 Lab Results 06/03/16 06/03/16 06/03/16 Range/Units 15:40 16:15 16:15 WBC 10.5 (3.8-10.6) k/uL RBC 4.20 L (4.30-5.90) m/uL Hgb 12.3 L (13.0-17.5) gm/dL Hct 40.4 (39.0-53.0) % MCV 96.4 D (80.0-100.0) fL MCH 29.4 (25.0-35.0) pg MCHC 30.5 L (31.0-37.0) g/dL RDW 18.4 H (11.5-15.5) % Plt Count 181 (150-450) k/uL Neutrophils % 93 % Lymphocytes % 4 % Monocytes % 2 % Eosinophils % 0 % Basophils % 0 % Neutrophils # 9.7 H (1.3-7.7) k/uL Lymphocytes # 0.4 L (1.0-4.8) k/uL Monocytes # 0.2 (0-1.0) k/uL Eosinophils # 0.1 (0-0.7) k/uL Basophils # 0.0 (0-0.2) k/uL Hypochromasia Slight Anisocytosis Slight Macrocytosis Slight PT (9.0-12.0) sec INR (<1.1) APTT (22.0-30.0) sec Sodium 134 L (137-145) mmol/L Potassium 4.5 (3.5-5.1) mmol/L Chloride 102 (98-107) mmol/L Carbon Dioxide 24 (22-30) mmol/L Anion Gap 8 mmol/L BUN 11 (9-20) mg/dL Creatinine 0.80 (0.66-1.25) mg/dL Est GFR (MDRD) Af Amer >60 (>60 ml/min/1.73 sqM) Est GFR (MDRD) Non-Af >60 (>60 ml/min/1.73 sqM) Glucose 128 H (74-99) mg/dL Plasma Lactic Acid Arya (0.7-2.0) mmol/L Calcium 8.8 (8.4-10.2) mg/dL Total Bilirubin 1.1 (0.2-1.3) mg/dL AST 40 (17-59) U/L ALT 41 (21-72) U/L Alkaline Phosphatase 186 H (38-126) U/L Total Protein 6.1 L (6.3-8.2) g/dL Albumin 3.2 L (3.5-5.0) g/dL Urine Color Urine Appearance (Clear) Urine pH (5.0-8.0) Ur Specific [place] (1.001-1.035) Urine Protein (Negative) Urine Glucose (UA) (Negative) Urine Ketones (Negative) Urine Blood (Negative) Urine Nitrite (Negative) Urine Bilirubin (Negative) Urine Urobilinogen (<2.0) mg/dL Ur Leukocyte Esterase (Negative) Urine RBC (0-5) /hpf Urine WBC (0-5) /hpf Urine Mucus (None) /hpf Influenza Type A RNA Not Detected (Not Detectd) Influenza Type B (PCR) Not Detected (Not Detectd) 06/03/16 06/03/16 06/03/16 Range/Units 16:15 16:15 16:15 WBC (3.8-10.6) k/uL RBC (4.30-5.90) m/uL Hgb (13.0-17.5) gm/dL Hct (39.0-53.0) % MCV (80.0-100.0) fL MCH (25.0-35.0) pg MCHC (31.0-37.0) g/dL RDW (11.5-15.5) % Plt Count (150-450) k/uL Neutrophils % % Lymphocytes % % Monocytes % % Eosinophils % % Basophils % % Neutrophils # (1.3-7.7) k/uL Lymphocytes # (1.0-4.8) k/uL Monocytes # (0-1.0) k/uL Eosinophils # (0-0.7) k/uL Basophils # (0-0.2) k/uL Hypochromasia Anisocytosis Macrocytosis PT 11.4 (9.0-12.0) sec INR 1.1 (<1.1) APTT 25.3 (22.0-30.0) sec Sodium (137-145) mmol/L Potassium (3.5-5.1) mmol/L Chloride (98-107) mmol/L Carbon Dioxide (22-30) mmol/L Anion Gap mmol/L BUN (9-20) mg/dL Creatinine (0.66-1.25) mg/dL Est GFR (MDRD) Af Amer (>60 ml/min/1.73 sqM) Est GFR (MDRD) Non-Af (>60 ml/min/1.73 sqM) Glucose (74-99) mg/dL Plasma Lactic Acid Arya 2.0 (0.7-2.0) mmol/L Calcium (8.4-10.2) mg/dL Total Bilirubin (0.2-1.3) mg/dL AST (17-59) U/L ALT (21-72) U/L Alkaline Phosphatase (38-126) U/L Total Protein (6.3-8.2) g/dL Albumin (3.5-5.0) g/dL Urine Color Yellow Urine Appearance Clear (Clear) Urine pH 7.0 (5.0-8.0) Ur Specific [place] 1.010 (1.001-1.035) Urine Protein Negative (Negative) Urine Glucose (UA) Negative (Negative) Urine Ketones Negative (Negative) Urine Blood Trace H (Negative) Urine Nitrite Negative (Negative) Urine Bilirubin Negative (Negative) Urine Urobilinogen <2.0 (<2.0) mg/dL Ur Leukocyte Esterase Negative (Negative) Urine RBC 4 (0-5) /hpf Urine WBC <1 (0-5) /hpf Urine Mucus Rare H (None) /hpf Influenza Type A RNA (Not Detectd) Influenza Type B (PCR) (Not Detectd) - Radiology Data Radiology results: image reviewed (Chest x-ray shows no acute process) Disposition Clinical Impression: Fever, Sinusitis Disposition: HOME SELF-CARE Condition: Stable Instructions: Fever in Adults (ED), Sinusitis (ED) Additional Instructions: Please follow-up with primary care physician Monday as scheduled. Return for uncontrolled fever, weakness, cough or shortness of breath, abdominal pain, confusion, worsening symptoms or other concerns. [id number] Tylenol or Motrin as needed for fever. Prescriptions: Levofloxacin [Levaquin] 250 mg PO DAILY #9 tab Referrals: Mendez Mathews MD [Primary Care Provider] - 1-2 days Jamison Aguilar MD [STAFF PHYSICIAN] - 1-2 days
[2016-06-03 16:33] LABS: Anisocytosis Slight; Basophils % (A) 0 %; CH 30.1; CHCM 31.3; Eosinophils # (A) 0.1 k/uL (0-0.7); Eosinophils % (A) 0 %; HCT 40.4 % (39.0-53.0); HDW 2.56; HGB 12.3 gm/dL (13.0-17.5); Hypochromasia Slight; Luc # (Auto) 0.03; Luc % (Auto) 0; Lymphocytes # (A) 0.4 k/uL (1.0-4.8); Lymphocytes % (A) 4 %; MCH 29.4 pg (25.0-35.0); MCHC 30.5 g/dL (31.0-37.0); Macrocytosis Slight; Mean Platelet Volume 8.3; Monocytes # (A) 0.2 k/uL (0-1.0); Monocytes % (A) 2 %; Neutrophils # (A) 9.7 k/uL (1.3-7.7); Neutrophils % (A) 93 %; RDW 18.4 % (11.5-15.5); WBC 10.5 k/uL (3.8-10.6); WBC (Perox) 10.93
[2016-06-03 16:37] LABS: Appearance,Urine Clear (Clear); Bilirubin,Urine Negative (Negative); Glucose,Urine (UA) Negative (Negative); Ketones,Urine Negative (Negative); Leukocyte Esterase,Urine Negative (Negative); Mucus,Urine Rare /hpf; Nitrite,Urine Negative (Negative); Particle Count 1032; Protein,Urine Negative (Negative); RBC,Urine 4 /hpf (0-5); UA Billing (MACRO vs. MICRO) MICRO; Urobilinogen,Urine <2.0 mg/dL (<2.0); WBC,Urine <1 /hpf (0-5)
[2016-06-03 16:41] LABS: ALT 41 U/L (21-72); AST 40 U/L (17-59); Alkaline Phosphatase 186 U/L (38-126); Anion Gap 8 mmol/L; Blood Urea Nitrogen 11 mg/dL (9-20); Calcium 8.8 mg/dL (8.4-10.2); Carbon Dioxide 24 mmol/L (22-30); Chloride 102 mmol/L (98-107); Glucose 128 mg/dL (74-99); Non-African American GFR(MDRD) >60 (>60 ml/min/1.73 sqM); Potassium 4.5 mmol/L (3.5-5.1); Sodium 134 mmol/L (137-145); Total Bilirubin 1.1 mg/dL (0.2-1.3); Total Protein 6.1 g/dL (6.3-8.2)
[2016-06-03 16:42] LABS: INR 1.1 (<1.1); Partial Thromboplastin Time 25.3 sec (22.0-30.0); Prothrombin Time 11.4 sec (9.0-12.0)
[2016-06-03 16:43] LABS: MCV 96.4 fL (80.0-100.0)
--- NOTE | 2016-06-03 16:46 | XR ---
EXAMINATION TYPE: XR chest 2V DATE OF EXAM: 06/03/2016 4:41 PM COMPARISON: NONE HISTORY: Fever, weakness TECHNIQUE: Frontal and lateral views of the chest are obtained on 4 images. FINDINGS: There is no focal air space opacity, pleural effusion, or pneumothorax seen. The cardiac silhouette size is within normal limits. Right-sided port, central venous catheter shows stable posit ion, there are prominent lung volumes indicative of possible COPD The osseous structures are intact. IMPRESSION: No acute cardiopulmonary process.
[2016-06-03] MEDS ORDERED: IBUPROFEN 400 MG TAB PO STA (17:11)
[2016-06-03] MEDS ORDERED: SODIUM CHLORIDE 0.9% 250 ML IV STA (18:32)
[2016-06-03] MEDS ORDERED: LEVOFLOXACIN 250 MG TAB PO STA (18:36)
[2016-06-03 18:42] VITALS: BP 111/60; PULSE 120; RESP 18; TEMP 97.3
== END 2016-06-03 19:22 | disposition home or self-care (01) ==
LOC: EC 15:28
DX: J32.1 Chronic frontal sinusitis (principal); J32.2 Chronic ethmoidal sinusitis; J32.0 Chronic maxillary sinusitis; R53.1 Weakness; K21.9 Gastro-esophageal reflux disease without esophagitis; E07.9 Disorder of thyroid, unspecified; I48.92 Unspecified atrial flutter; E78.5 Hyperlipidemia, unspecified; I10 Essential (primary) hypertension; N40.0 Benign prostatic hyperplasia without lower urinary tract symptoms; Z87.891 Personal history of nicotine dependence; Z79.01 Long term (current) use of anticoagulants; Z79.82 Long term (current) use of aspirin; Z79.899 Other long term (current) drug therapy; Z88.5 Allergy status to narcotic agent; Z86.69 Personal history of other diseases of the nervous system and sense organs; Z86.711 Personal history of pulmonary embolism; Z86.73 Personal history of transient ischemic attack (TIA), and cerebral infarction without residual deficits; Z95.818 Presence of other cardiac implants and grafts; Z98.890 Other specified postprocedural states
CPT/HCPCS: 36415; 71020; 80053; 81001; 83605; 85025; 85610; 85730; 87040; 87086; 87502; 93005; 96360; 96361; 99285

== ENCOUNTER 2016-07-18 07:03 | Inpatient (IN) | payer MEDICARE, BC ==
[2016-07-18] MEDS ORDERED: SODIUM CHLORIDE 0.9% 1,000 ML IV STA (07:24)
--- NOTE | 2016-07-18 07:24 | ED ---
General Adult HPI - General Chief complaint: Chest Pain Stated complaint: chest pain Time Seen by Provider: 07/18/16 07:21 Source: patient, family, RN notes reviewed, old records reviewed Mode of arrival: wheelchair - History of Present Illness Initial comments: This is an 85-year-old male to the ER for evaluation. Patient safe for evaluation of chest pain and shortness of breath. Patient has medical history consists of DVT, PE E, pancreatitis, cancer, multiple other medical comorbidities. Patient has no fever, does have increased cough and no congestion. No travel history no sick contacts. Patient is on Xarelto for PE - Related Data Home Medications Medication Instructions Recorded Confirmed Latanoprost Ophth [Xalatan 0.005%] 1 drops BOTH EYES HS 12/31/13 07/18/16 Pregabalin [Lyrica] 75 mg PO BID@1200,2100 12/31/13 07/18/16 Levothyroxine Sodium [Synthroid] 50 mcg PO -BRKFST 03/28/14 07/18/16 Furosemide [Lasix] 20 mg PO DAILY@1200 12/20/15 07/18/16 NIFEdipine [NIFEdipine ER] 60 mg PO -BRKFST 12/20/15 07/18/16 Omeprazole 20 mg PO DAILY PRN 12/20/15 07/18/16 Temazepam [Restoril] 15 mg PO HS PRN 12/20/15 07/18/16 Amiodarone [Cordarone] 100 mg PO -BRKFST 03/22/16 07/18/16 Aspirin [Adult Low Dose Aspirin EC] 81 mg PO -KFST 03/22/16 07/18/16 Simvastatin [Zocor] 20 mg PO HS 03/22/16 07/18/16 Docusate [Colace] 100 mg PO BID 06/03/16 07/18/16 L.acidoph,Paracasei, B.lactis 1 cap PO PC-SUPPER 06/03/16 07/18/16 [Probiotic] Polyethylene Glycol 3350 [Miralax] 17 gm PO PC-BRKFST 06/03/16 07/18/16 Rivaroxaban [Xarelto] 15 mg PO PC-SUPPER 06/03/16 07/18/16 Ipratropium [place] 0.06%Nasal 2 spray EA NOSTRIL DAILY PRN 07/18/16 07/18/16 [Atrovent Nasal 0.06%] Allergies Allergy/AdvReac Type Severity Reaction Status Date / Time morphine Allergy shaking Verified 07/18/16 08:09 Review of Systems ROS Statement: Those systems with pertinent positive or pertinent negative responses have been documented in the HPI. ROS Other: All systems not noted in ROS Statement are negative. Past Medical History Past Medical History: Atrial Flutter, Cancer, CVA/TIA, Deep Vein Thrombosis (DVT ), Eye Disorder, GERD/Reflux, Hyperlipidemia, Hypertension, Prostate Disorder, Pulmonary Embolus (PE), Thyroid Disorder Additional Past Medical History / Comment(s): Pancreatic cancer diagnosed December 2015-whipple surgery/chemo-gemzar last received 03/30/16, TIA/CVA -occ speech issue, , bilateral feet and leg neuropathy, 12-31-13 GAEL PE'S, PE in 1995, DVT R leg, bilateral GLAUCOMA, SKIN CA, chronic R lower leg edema, constipation, BPH with surgery. History of Any Multi-Drug Resistant Organisms: None Reported Past Surgical History: Appendectomy, Heart Catheterization, Orthopedic Surgery, Prostate Surgery Additional Past Surgical History / Comment(s): ERCP, FARIBA/cardioversion, tito filter, bilateral CATARACTS, colonoscopy , sinus sx, GANGLION CYSTS REMOVED LT WRIST, numerous skin cancer removals, whipple surgery 01/21/16 at [place], 03/24/16 port a cath R subclavian. Past Anesthesia/Blood Transfusion Reactions: No Reported Reaction Past Psychological History: No Psychological Hx Reported Additional Psychological History / Comment(s): Pt resides with his spouse. Lately, he has been ambulating with a cane. He drives. No home care. Smoking Status: Former smoker Past Alcohol Use History: Rare Additional Past Alcohol Use History / Comment(s): STARTED SMOKING AT AGE 9 SMOKED, 1PPD, QUIT 1970 Past Drug Use History: None Reported - Past Family History Brother(s) Additional Family Medical History / Comment(s): AAA with stent Father Family Medical History: Myocardial Infarction ([place]) Additional Family Medical History / Comment(s): [place] AT 75 Mother Family Medical History: No Reported History Additional Family Medical History / Comment(s): AT AGE 79, COMPLICATIONS FROM ALZHIEMERS. General Exam General appearance: alert, in no apparent distress Head exam: Present: atraumatic, normocephalic, normal inspection Eye exam: Present: normal appearance, PERRL, EOMI. Absent: scleral icterus, conjunctival injection, periorbital swelling ENT exam: Present: normal exam, mucous membranes moist Neck exam: Present: normal inspection. Absent: tenderness, meningismus, lymphadenopathy Respiratory exam: Present: normal lung sounds bilaterally. Absent: respiratory distress, wheezes, rales, rhonchi, stridor Cardiovascular Exam: Present: regular rate, normal rhythm, normal heart sounds. Absent: systolic murmur, diastolic murmur, rubs, gallop, clicks GI/Abdominal exam: Present: soft, normal bowel sounds. Absent: distended, tenderness, guarding, rebound, rigid Extremities exam: Present: normal inspection, full ROM, normal capillary refill. Absent: tenderness, pedal edema, joint swelling, calf tenderness Back exam: Present: normal inspection Neurological exam: Present: alert, oriented X3, CN II-XII intact Psychiatric exam: Present: normal affect, normal mood Skin exam: Present: warm, dry, intact, normal color. Absent: rash Course Vital Signs 07/18/16 07/18/16 07/18/16 07:08 08:00 08:34 Temperature 97 F L Pulse Rate 70 69 68 Respiratory 22 20 Rate Blood Pressure 115/73 111/68 O2 Sat by Pulse 99 100 Oximetry 07/18/16 07/18/16 08:50 09:01 Temperature Pulse Rate 67 65 Respiratory 22 Rate Blood Pressure 121/73 O2 Sat by Pulse 98 Oximetry - Reevaluation(s) Reevaluation #1: 07/18/16 09:31 Patient is doing much better with pain control EKG Findings - EKG Comments: EKG Findings:: EKG shows sinus rhythm rate of 63, DE 220, QRS 86, QTC 466 Medical Decision Making - Medical Decision Making 80 formality ER for evaluation of chest pain, positive non-ST elevated NC, no fever, COPD exacerbation, low risk for PE patient is on Xarelto, will continue at take coagulation with Xarelto and admitted for cardiac observation - Lab Data Result diagrams: 07/18/16 07:25 07/18/16 07:25 Lab Results 07/18/16 07/18/16 07/18/16 Range/Units 07:25 07:25 07:25 WBC 5.3 (3.8-10.6) k/uL RBC 4.36 (4.30-5.90) m/uL Hgb 12.4 L (13.0-17.5) gm/dL Hct 39.0 (39.0-53.0) % MCV 89.5 D (80.0-100.0) fL MCH 28.5 (25.0-35.0) pg MCHC 31.8 (31.0-37.0) g/dL RDW 13.9 (11.5-15.5) % Plt Count 198 (150-450) k/uL Neutrophils % 55 % Lymphocytes % 27 % Monocytes % 10 % Eosinophils % 4 % Basophils % 1 % Neutrophils # 2.9 (1.3-7.7) k/uL Lymphocytes # 1.4 (1.0-4.8) k/uL Monocytes # 0.5 (0-1.0) k/uL Eosinophils # 0.2 (0-0.7) k/uL Basophils # 0.1 (0-0.2) k/uL Hypochromasia Slight PT (9.0-12.0) sec INR (<1.1) APTT (22.0-30.0) sec Sodium 140 (137-145) mmol/L Potassium 3.6 (3.5-5.1) mmol/L Chloride 109 H (98-107) mmol/L Carbon Dioxide 22 (22-30) mmol/L Anion Gap 9 mmol/L BUN 14 (9-20) mg/dL Creatinine 0.76 (0.66-1.25) mg/dL Est GFR (MDRD) Af Amer >60 (>60 ml/min/1.73 sqM) Est GFR (MDRD) Non-Af >60 (>60 ml/min/1.73 sqM) Glucose 97 (74-99) mg/dL Calcium 9.1 (8.4-10.2) mg/dL Magnesium 2.0 (1.6-2.3) mg/dL Total Bilirubin 0.9 (0.2-1.3) mg/dL AST 45 (17-59) U/L ALT 41 (21-72) U/L Alkaline Phosphatase 299 H (38-126) U/L Total Creatine Kinase 33 L (55-170) U/L CK-MB (CK-2) 0.7 (0.0-2.4) ng/mL CK-MB (CK-2) Rel Index 2.1 Troponin I 0.096 H* (0.000-0.034) ng/mL Total Protein 6.2 L (6.3-8.2) g/dL Albumin 3.3 L (3.5-5.0) g/dL Lipase 15 L (23-300) U/L 07/18/16 Range/Units 07:25 WBC (3.8-10.6) k/uL RBC (4.30-5.90) m/uL Hgb (13.0-17.5) gm/dL Hct (39.0-53.0) % MCV (80.0-100.0) fL MCH (25.0-35.0) pg MCHC (31.0-37.0) g/dL RDW (11.5-15.5) % Plt Count (150-450) k/uL Neutrophils % % Lymphocytes % % Monocytes % % Eosinophils % % Basophils % % Neutrophils # (1.3-7.7) k/uL Lymphocytes # (1.0-4.8) k/uL Monocytes # (0-1.0) k/uL Eosinophils # (0-0.7) k/uL Basophils # (0-0.2) k/uL Hypochromasia PT 12.5 H (9.0-12.0) sec INR 1.3 (<1.1) APTT 37.1 H (22.0-30.0) sec Sodium (137-145) mmol/L Potassium (3.5-5.1) mmol/L Chloride (98-107) mmol/L Carbon Dioxide (22-30) mmol/L Anion Gap mmol/L BUN (9-20) mg/dL Creatinine (0.66-1.25) mg/dL Est GFR (MDRD) Af Amer (>60 ml/min/1.73 sqM) Est GFR (MDRD) Non-Af (>60 ml/min/1.73 sqM) Glucose (74-99) mg/dL Calcium (8.4-10.2) mg/dL Magnesium (1.6-2.3) mg/dL Total Bilirubin (0.2-1.3) mg/dL AST (17-59) U/L ALT (21-72) U/L Alkaline Phosphatase (38-126) U/L Total Creatine Kinase (55-170) U/L CK-MB (CK-2) (0.0-2.4) ng/mL CK-MB (CK-2) Rel Index Troponin I (0.000-0.034) ng/mL Total Protein (6.3-8.2) g/dL Albumin (3.5-5.0) g/dL Lipase (23-300) U/L - Radiology Data Radiology results: report reviewed (Chest x-ray is negative for acute disease), image reviewed Critical Care Time Critical Care Time: Yes Total Critical Care Time: 31 Disposition Clinical Impression: Chest pain, NSTEMI (non-ST elevated myocardial infarction), COPD exacerbation Disposition: ADMITTED IP TO THIS HOSP Condition: Fair
[2016-07-18 07:38] LABS: Basophils # (A) 0.1 k/uL (0-0.2); Basophils % (A) 1 %; CH 28.1; CHCM 31.5; Eosinophils # (A) 0.2 k/uL (0-0.7); Eosinophils % (A) 4 %; HDW 2.68; HGB 12.4 gm/dL (13.0-17.5); Hypochromasia Slight; Luc # (Auto) 0.17; Luc % (Auto) 3; Lymphocytes # (A) 1.4 k/uL (1.0-4.8); Lymphocytes % (A) 27 %; MCH 28.5 pg (25.0-35.0); MCHC 31.8 g/dL (31.0-37.0); Mean Platelet Volume 7.5; Monocytes # (A) 0.5 k/uL (0-1.0); Monocytes % (A) 10 %; Neutrophils # (A) 2.9 k/uL (1.3-7.7); Neutrophils % (A) 55 %; RBC 4.36 m/uL (4.30-5.90); RDW 13.9 % (11.5-15.5); WBC 5.3 k/uL (3.8-10.6); WBC (Perox) 4.99
--- NOTE | 2016-07-18 07:53 | XR ---
EXAMINATION TYPE: XR chest 2V DATE OF EXAM: 07/18/2016 7:45 AM COMPARISON: 06/03/2016 HISTORY: 85-year-old male with chest pain TECHNIQUE: AP and lateral views FINDINGS: Right anterior chest wall injection port with catheter tip at the mid SVC level. Heart is normal size. Aorta within normal limits. Large appearance to the central pulmonary arteries could reflect underlying pulmonary arterial hypertension. Relative upper lung lucencies and hyperinfl ation with increased retrosternal clear space suggests underlying emphysema. No consolidation or pleu ral effusion. IMPRESSION: COPD and possible underlying pulmonary arterial hypertension. No acute process seen.
[2016-07-18 07:56] LABS: MCV 89.5 fL (80.0-100.0)
[2016-07-18 08:05] LABS: INR 1.3 (<1.1); Partial Thromboplastin Time 37.1 sec (22.0-30.0); Prothrombin Time 12.5 sec (9.0-12.0)
[2016-07-18 08:15] LABS: ALT 41 U/L (21-72); AST 45 U/L (17-59); Alkaline Phosphatase 299 U/L (38-126); Anion Gap 9 mmol/L; Blood Urea Nitrogen 14 mg/dL (9-20); Calcium 9.1 mg/dL (8.4-10.2); Carbon Dioxide 22 mmol/L (22-30); Chloride 109 mmol/L (98-107); Glucose 97 mg/dL (74-99); Non-African American GFR(MDRD) >60 (>60 ml/min/1.73 sqM); Potassium 3.6 mmol/L (3.5-5.1); Sodium 140 mmol/L (137-145); Total Bilirubin 0.9 mg/dL (0.2-1.3); Total Protein 6.2 g/dL (6.3-8.2)
[2016-07-18 08:19] LABS: Creatine Kinase MB 0.7 ng/mL (0.0-2.4)
[2016-07-18] MEDS ORDERED: IPRATROPIUM-ALBUTEROL 3 ML NEB INHALATION STA (08:20)
[2016-07-18] MEDS ORDERED: HYDROmorphone 1 MG/ML 1 ML SYRINGE IVP STA (08:20)
[2016-07-18] MEDS ORDERED: LORazepam 2 MG/ML SYRINGE IV STA (08:20)
[2016-07-18] MEDS ORDERED: KETOROLAC 30 MG/ML 1 ML VIAL IVP STA (08:21)
[2016-07-18 08:24] LABS: Troponin I 0.096 ng/mL (0.000-0.034)
[2016-07-18] MEDS ORDERED: ASPIRIN 81 MG CHEW PO STA (08:49)
[2016-07-18] MEDS ORDERED: PANTOPRAZOLE 40 MG TABLET PO PRN (12:10)
[2016-07-18] MEDS ORDERED: IPRATROPIUM BROMIDE 0.06% NASAL SPRAY (15 ML) EA NOSTRIL PRN (12:10)
[2016-07-18] MEDS: LEVOTHYROXINE 50 MCG TAB PO SCH (12:28)
[2016-07-18] MEDS: AMIODARONE 200 MG TAB PO SCH (12:28)
--- NOTE | 2016-07-18 12:55 | P.HPIM ---
History of Present Illness H&P Date: 07/18/16 Chief Complaint: Chest pain This is a 85-year-old male with a known past medical history of CVA, right leg DVT, pulmonary emboli 2 times, [place] filter placed and 96 and has been on Xarelto for the past 3 years after his second PE. Also has a history of atrial flutter, hypothyroidism and hyperlipidemia. History of pancreatic cancer status post Whipple procedure in 2015 with chemo therapy treatment last treatment was in March 2016. Patient presents to the emergency room with complaints of chest pain and shortness of breath. He reports that he's been having chest pains off and on for last couple weeks. Yesterday the pain across his chest continued to worsen. He woke up early this morning with chest pains. The pain radiates across the chest and into the left arm. He's had some shortness of breath with the pain. Present to the emergency room for further evaluation and treatment. EKG showing a normal sinus rhythm with a first- degree AV block. First troponin elevated at 0.096. Cardiology has been consulted. Patient was evaluated in the emergency room. Last stress test was about 8 months ago and patient reports it being negative. He had a heart catheterization several years ago and was negative. He does have a past history of smoking. Chest x-ray shows no acute pulmonary process does reveal COPD and possibly underlying pulmonary arterial hypertension. Patient denies any cough, fever, chills, sweats, nausea or vomiting, bowel movement changes or urinary symptoms. Review of Systems Please refer to HPI otherwise unremarkable Past Medical History Past Medical History: Atrial Flutter, Cancer, CVA/TIA, Deep Vein Thrombosis (DVT ), Eye Disorder, GERD/Reflux, Hyperlipidemia, Hypertension, Prostate Disorder, Pulmonary Embolus (PE), Thyroid Disorder Additional Past Medical History / Comment(s): Pancreatic cancer diagnosed December 2015-whipple surgery/chemo-gemzar last received 03/30/16, CVA 01/23/16- occ speech issue, , bilateral feet and leg neuropathy, 12-31-13 GAEL PE'S, PE in 1995, DVT R leg, bilateral GLAUCOMA, SKIN CA, chronic R lower leg edema, constipation, BPH with surgery. History of Any Multi-Drug Resistant Organisms: None Reported Past Surgical History: Appendectomy, Heart Catheterization, Orthopedic Surgery, Prostate Surgery Additional Past Surgical History / Comment(s): ERCP, FARIBA/cardioversion, tito filter, bilateral CATARACTS, colonoscopy , sinus sx, GANGLION CYSTS REMOVED LT WRIST, numerous skin cancer removals, whipple surgery 01/21/16 at [place], 03/24/16 port a cath R subclavian. Past Anesthesia/Blood Transfusion Reactions: No Reported Reaction Past Psychological History: No Psychological Hx Reported Additional Psychological History / Comment(s): Pt resides with his spouse. Lately, he has been ambulating with a cane. He drives. No home care. Smoking Status: Former smoker Past Alcohol Use History: Rare Additional Past Alcohol Use History / Comment(s): STARTED SMOKING AT AGE 9 SMOKED, 1PPD, QUIT 1971 Past Drug Use History: None Reported - Past Family History Brother(s) Additional Family Medical History / Comment(s): AAA with stent Father Family Medical History: Myocardial Infarction ([place]) Additional Family Medical History / Comment(s): [place] AT 75 Mother Family Medical History: No Reported History Additional Family Medical History / Comment(s): AT AGE 79, COMPLICATIONS FROM ALZHIEMERS. Medications and Allergies Home Medications Medication Instructions Recorded Confirmed Type Latanoprost Ophth [Xalatan 0.005%] 1 drops BOTH EYES HS 12/31/13 07/18/16 History Pregabalin [Lyrica] 75 mg PO BID@1200,2100 12/31/13 07/18/16 History Levothyroxine Sodium [Synthroid] 50 mcg PO [facility] 03/28/14 07/18/16 History Furosemide [Lasix] 20 mg PO DAILY@1200 12/20/15 07/18/16 History NIFEdipine [NIFEdipine ER] [address] [facility] 12/20/15 07/18/16 History Omeprazole 20 mg PO DAILY PRN 12/20/15 07/18/16 History Temazepam [Restoril] 15 mg PO HS PRN 12/20/15 07/18/16 History [facility]] [facility] 03/22/16 07/18/16 History Aspirin [Adult Low Dose Aspirin EC] [address] [facility] 03/22/16 07/18/16 History Simvastatin [Zocor] 20 mg PO HS 03/22/16 07/18/16 History Docusate [Colace] 100 mg PO BID 06/03/16 07/18/16 History L.acidoph,Paracasei, B.lactis 1 cap PO PC-SUPPER 06/03/16 07/18/16 History [Probiotic] Polyethylene Glycol 3350 [Miralax] 17 gm PO PC-BRKFST 06/03/16 07/18/16 History Rivaroxaban [Xarelto] 15 mg PO PC-SUPPER 06/03/16 07/18/16 History Ipratropium [place] 0.06%Nasal 2 spray EA NOSTRIL DAILY PRN 07/18/16 07/18/16 History [Atrovent Nasal 0.06%] Allergies Allergy/AdvReac Type Severity Reaction Status Date / Time morphine Allergy shaking Verified 07/18/16 08:09 Physical Exam Vitals: Vital Signs Pulse Resp BP Pulse Ox 07/18/16 12:00 56 L 18 122/77 100 07/18/16 11:00 76 18 136/79 100 07/18/16 09:59 71 18 120/79 98 07/18/16 09:01 65 22 121/73 98 07/18/16 08:50 67 Head normocephalic Neck supple Lungs clear to auscultation bilaterally no wheezing or crackles Heart regular rate and rhythm S1-S2, no rub or gallop Abdomen is soft nontender nondistended positive bowel sounds no hepatosplenomegaly Extremities no edema Neuro alert and orientated to 3 Results CBC & Chem 7: 07/18/16 07:25 07/18/16 07:25 Thrombosis Risk Factor Assmnt - Choose All That Apply Any of the Below Risk Factors Present?: Yes Each Factor Represents 1 point: Acute [place] Other Risk Factors: Yes Each Risk Factor Represents 3 Points: Age 75 years or older, History of DVT/PE Other congenital or acquired thrombophilia - If yes, enter type in comment: No Thrombosis Risk Factor Assessment Total Risk Factor Score: 7 Thrombosis Risk Factor Assessment Level: High Risk Assessment and Plan Plan: 1. Chest pain: Cardiac workup in progress. First troponin elevated at 0.096. Repeat troponins are pending. EKG normal sinus rhythm first degree AV block. Cardiology has been consulted. Patient is been started on a full aspirin 325 mg daily Lipitor 80 mg daily and on Xarelto for anticoagulation 2. 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 Has had [place] filter placed in 1995 and is on Xarelto 15 mg daily started about 3 years ago 3. Pancreatic cancer status post Whipple procedure in 2015 with chemo treatment ending in March 2016 4. Paroxysmal atrial flutter: Continue Xarelto and amiodarone 5. Hypothyroidism resume Synthroid GI prophylaxis Protonix and DVT prophylaxis Xarelto Time with Patient: Greater than 30 (Greater than 50% of the total time spent in counseling and coordination of care.I performed an examination of the patient and discussed their management with the physician Plant Protection Supervisor. I have reviewed the Physician Plant Protection Supervisor's notes and agree with the documented findings and plan of care)
[2016-07-18] MEDS: IPRATROPIUM-ALBUTEROL 3 ML NEB INHALATION SCH ×4 (14:57→23:00)
[2016-07-18 15:19] LABS: Creatine Kinase MB 0.6 ng/mL (0.0-2.4)
[2016-07-18 15:23] LABS: Troponin I 0.091 ng/mL (0.000-0.034)
[2016-07-18] MEDS: SODIUM CHLORIDE 0.9% 1,000 ML IV SCH ×3 (16:02→18:11)
[2016-07-18] MEDS: LACTOBACILLUS ACIDOPH & BULGAR 1 EACH PACKET PO SCH (18:10)
[2016-07-18] MEDS ORDERED: RIVAROXABAN 15 MG TAB PO SCH (18:30)
[2016-07-18] MEDS ORDERED: HEPARIN SODIUM,PORCINE 5,000 UNIT/ML 1 ML VIAL IV PRN (19:59)
[2016-07-18] MEDS: HEPARIN SODIUM,PORCINE/D5W PMX 25,000 UNIT in DEXTROSE/WATER 1 500ML.BAG IV SCH (20:36)
[2016-07-18] MEDS ORDERED: TEMAZEPAM 15 MG CAP PO PRN (21:00)
[2016-07-18 21:28] LABS: Creatine Kinase MB 0.6 ng/mL (0.0-2.4)
[2016-07-18] MEDS: DOCUSATE 100 MG CAP PO SCH (21:32)
[2016-07-18] MEDS: PREGABALIN 75 MG CAP PO SCH (21:33)
[2016-07-18] MEDS: LATANOPROST 0.005% OPHTH DROPS 2.5 ML BTL BOTH EYES SCH (21:33)
[2016-07-18 21:37] LABS: Troponin I 0.062 ng/mL (0.000-0.034)
[2016-07-19] MEDS: NITROGLYCERIN SL TABS 0.4 MG TAB SUBLINGUAL PRN ×5 (01:20→09:14)
[2016-07-19] MEDS: HYDROmorphone 1 MG/ML 1 ML SYRINGE IVP PRN ×3 (01:32→18:02)
[2016-07-19] MEDS: IPRATROPIUM-ALBUTEROL 3 ML NEB INHALATION SCH ×5 (02:29→19:36)
[2016-07-19] MEDS: LEVOTHYROXINE 50 MCG TAB PO SCH (06:40)
--- NOTE | 2016-07-19 09:05 | P.PN ---
Subjective Principal diagnosis: Chest pain Patient is an 85-year-old male well-known to my practice who presented to [facility] emergency room with a chief complaint of chest pain patient states he had pain all day on Mother's Day Monday he came to the hospital on Monday morning his troponin was slightly elevated he was admitted to telemetry floor, he has known history of pulmonary embolism and was maintained on Xarelto, which was held on 07/18/2016, agent was started on IV heparin. He was evaluated this morning on 07/19/2016 he states he is still having some pressure in his chest, he denies any fever or chills no shortness of breath no diaphoresis no nausea or vomiting no abdominal pain and no urinary symptoms. Patient has a known history of pancreatic cancer received 6 sessions of chemotherapy, and then he decided to stop having chemotherapy. He has a right subclavian port, which was scheduled to be removed in the next couple of weeks Objective - Vital Signs Vital signs: Vital Signs Temp 96.4 F L 07/19/16 08:13 Pulse 60 07/19/16 08:13 Resp 18 07/19/16 08:13 BP 135/77 07/19/16 08:13 Pulse Ox 93 L 07/19/16 08:13 Intake & Output 07/18/16 07/19/16 07/19/16 18:59 06:59 18:59 Intake Total 240 1223.357 Output Total 1700 200 Balance 240 -476.643 -200 Weight 90.718 kg 88.6 kg Intake: IV 1100 Sodium Chloride 0.9% 1, 1100 000 ml @ 100 mls/hr IV . Q10H YESIKA Rx#:[id number] Intake, IV Titration 123.357 Amount Heparin Sodium,Porcine/ 123.357 D5w Pmx 25,000 unit In Dextrose/Water 1 500ml. bag @ 11 UNITS/KG/HR 19. 95 mls/hr IV .Q24H YESIKA Rx #:[id number] Oral 240 Output: Urine 1700 200 Other: Voiding Method Urinal Urinal # Voids 1 - Exam In general patient is alert and oriented in no apparent distress HEENT head normocephalic and atraumatic Neck is supple no JVD no goiter no lymphadenopathy Chest exam reveals a few scattered crackles no wheezing Cardiac exam reveals regular heart sounds no gallops no murmurs Abdomen is soft nontender no organomegaly Extremity exam reveals no edema no cyanosis or clubbing - Labs CBC & Chem 7: 07/18/16 07:25 07/18/16 07:25 Labs: Abnormal Lab Results - Last 24 Hours (Table) 07/18/16 07/18/16 07/19/16 Range/Units 14:33 19:54 01:46 APTT 79.9 H (22.0-30.0) sec Total Creatine Kinase 28 L 32 L (55-170) U/L Troponin I 0.091 H* 0.062 H* (0.000-0.034) ng/mL Assessment and Plan Plan: #1 episodes of chest pain in an 85-year-old male with slight elevation in troponin level patient is maintained on IV heparin cardiology consultation was requested #2 previous history of pulmonary embolism twice #3 history of pancreatic cancer seen by Dr. Stoll was maintained on chemotherapy which she discontinued recently #4 underlying history of paroxysmal atrial flutter agent was maintained on Xarelto and amiodarone #5 underlying history of hypothyroidism maintained on Synthroid At this time awaiting cardiology decision to proceed was cardiac testing continue IV heparin will follow closely
--- NOTE | 2016-07-19 09:10 | P.CRDCN ---
<Sweetie Maldonado E - Last Filed: 07/19/16 08:18> History of Present Illness Consult date: 07/19/16 Requesting physician: Daksha Arce Consult reason: chest pain Chief complaint: Chest pain History of present illness: This is a pleasant 85-year-old gentleman who follows regularly with Dr. Vital in the office. 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 Patient also has history of pancreatic cancer status post Whipple procedure in 2016, with chemo therapy. Patient was receiving chemotherapy even this year, and has recently decided along with Dr. Willson to stop chemo treatments. Patient presents to the hospital with symptoms of chest pressure and heaviness with associated shortness of breath. He states that he does get symptoms off and on however Monday evening the symptoms persisted all night long, he does state that when he takes a deep breath the symptoms feel tight in his chest however in spite of not taking a deep breath he continues to have the discomfort. He also had an episode of chest heaviness and pressure through the night last night, unrelieved with nitroglycerin, relieved with Dilaudid. EKG on arrival here shows a sinus rhythm with a first-degree AV block , no acute changes noted. Repeat EKG performed this morning shows sinus bradycardia with a first-degree AV block and anterior ST-T wave changes Chest x -ray reveals COPD and possible underlying pulmonary arterial hypertension. WBC 5.3, hemoglobin 12.4, platelet count 198. Potassium 3.6, BUN 14, creatinine 0.7. Troponins 0.096, 0.091, 0.062. At the time of my examination this morning , patient complains of some mild chest pressure. We will obtain an EKG, attempt to give the patient nitroglycerin. The most recent stress test as documented in Dr. Vital's office note was performed in December 2014. Patient was on anticoagulation at home in the form of Xarelto, this was discontinued on his admission here and he was initiated on IV heparin. 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 History of Any Multi-Drug Resistant Organisms: None Reported Past Surgical History: Appendectomy, Heart Catheterization, Orthopedic Surgery, Prostate Surgery Additional Past Surgical History / Comment(s): ERCP, FARIBA/cardioversion, trent filter, bilateral CATARACTS, colonoscopy , sinus sx, GANGLION CYSTS REMOVED LT WRIST, numerous skin cancer removals, whipple surgery 01/21/16 at [place], 03/24/16 port a cath R subclavian. Past Anesthesia/Blood Transfusion Reactions: No Reported Reaction Past Psychological History: No Psychological Hx Reported Additional Psychological History / Comment(s): Pt resides with his spouse. Lately, he has been ambulating with a cane. He drives. No home care. Smoking Status: Former smoker Past Alcohol Use History: Rare Additional Past Alcohol Use History / Comment(s): STARTED SMOKING AT AGE 9 SMOKED, 1PPD, QUIT 1971 Past Drug Use History: None Reported - Past Family History Brother(s) Additional Family Medical History / Comment(s): AAA with stent Father Family Medical History: Myocardial Infarction (MT) Additional Family Medical History / Comment(s): MT AT 75 Mother Family Medical History: No Reported History Additional Family Medical History / Comment(s): AT AGE 79, COMPLICATIONS FROM ALZHIEMERS. Medications and Allergies Home Medications Medication Instructions Recorded Confirmed Type Latanoprost Ophth [Xalatan 0.005%] 1 drops BOTH EYES HS 12/31/13 07/18/16 History Pregabalin [Lyrica] 75 mg PO BID@1200,2100 12/31/13 07/18/16 History Levothyroxine Sodium [Synthroid] 50 mcg PO AC-BRKFST 03/28/14 07/18/16 History Furosemide [Lasix] 20 mg PO DAILY@1200 12/20/15 07/18/16 History NIFEdipine [NIFEdipine ER] 60 mg PO PC-BRKFST 12/20/15 07/18/16 History Omeprazole 20 mg PO DAILY PRN 12/20/15 07/18/16 History Temazepam [Restoril] 15 mg PO HS PRN 12/20/15 07/18/16 History Amiodarone [Cordarone] 100 mg PO PC-BRKFST 03/22/16 07/18/16 History Aspirin [Adult Low Dose Aspirin EC] 81 mg PO PC-KFST 03/22/16 07/18/16 History Simvastatin [Zocor] 20 mg PO HS 03/22/16 07/18/16 History Docusate [Colace] 100 mg PO BID 06/03/16 07/18/16 History L.acidoph,Paracasei, B.lactis 1 cap PO PC-SUPPER 06/03/16 07/18/16 History [Probiotic] Polyethylene Glycol 3350 [Miralax] 17 gm PO -KT 06/03/16 07/18/16 History Rivaroxaban [Xarelto] 15 mg PO PC-SUPPER 06/03/16 07/18/16 History Ipratropium [place] 0.06%Nasal 2 spray EA NOSTRIL DAILY PRN 07/18/16 07/18/16 History [Atrovent Nasal 0.06%] Allergies Allergy/AdvReac Type Severity Reaction Status Date / Time morphine Allergy shaking Verified 07/18/16 08:09 Physical Exam Vitals: Vital Signs Temp Pulse Pulse Resp BP BP Pulse Ox 07/19/16 08:13 96.4 F L 60 18 135/77 93 L 07/19/16 07:52 60 97 07/19/16 04:00 55 L 07/19/16 02:56 97.1 F L 55 L 14 104/64 97 07/19/16 01:20 106/68 07/19/16 00:00 60 07/18/16 22:59 60 14 114/62 97 07/18/16 20:00 97.3 F L 66 16 126/73 98 07/18/16 19:49 66 07/18/16 19:36 64 07/18/16 17:39 96.3 F L 66 20 144/77 98 07/18/16 17:30 66 16 07/18/16 17:10 68 16 128/70 95 07/18/16 16:04 60 16 125/80 99 07/18/16 15:08 64 07/18/16 14:59 59 L 07/18/16 14:57 55 L 16 122/74 98 07/18/16 13:00 62 18 125/74 97 07/18/16 12:00 56 L 18 122/77 100 07/18/16 11:00 76 18 136/79 100 07/18/16 09:59 71 18 120/79 98 07/18/16 09:01 65 22 121/73 98 07/18/16 08:50 67 07/18/16 08:34 68 Intake and Output 07/18/16 07/19/16 07/19/16 22:59 06:59 14:59 Intake Total 240 1223.357 Output Total 200 1500 200 Balance 40 -276.643 -200 Intake: IV 1100 Sodium Chloride 0.9% 1, 1100 000 ml @ 100 mls/hr IV . Q10H [facility] Rx#:[id number] Intake, IV Titration 123.357 Amount Heparin Sodium,Porcine/ 123.357 D5w Pmx 25,000 unit In Dextrose/Water 1 500ml. bag @ 11 UNITS/KG/HR 19. 95 mls/hr IV .Q24H [facility] Rx #:[id number] Oral 240 Output: Urine 200 1500 200 Other: Voiding Method Urinal Urinal # Voids 1 1 Weight 88.6 kg PHYSICAL EXAMINATION: HEENT: Head is atraumatic, normocephalic. Pupils equal, round. Neck is supple. There is no elevated jugular venous pressure. HEART EXAMINATION: Heart S1 and S2 with systolic ejection murmur is heard. CHEST EXAMINATION: Lungs are clear to auscultation and precussion. No chest wall tenderness is noted on palpation or with deep breathing. ABDOMEN: Soft, nontender. Bowel sounds are heard. No organomegaly noted. EXTREMITIES: 2+ peripheral pulses with no evidence of peripheral edema and no calf tenderness noted. NEUROLOGIC patient is awake, alert and oriented -3. . Results 07/18/16 07:25 07/18/16 07:25 Cardiac Enzymes 07/18/16 07/18/16 07/18/16 Range/Units 07:25 14:33 19:54 CK-MB (CK-2) 0.7 0.6 0.6 (0.0-2.4) ng/mL Troponin I 0.096 H* 0.091 H* 0.062 H* (0.000-0.034) ng/mL Coagulation 07/19/16 Range/Units 01:46 APTT 79.9 H (22.0-30.0) sec Current Medications Generic Name Dose Route Start Last Admin Trade Name Freq PRN Reason Stop Dose Admin Albuterol/Ipratropium 3 ml 07/18/16 12:00 07/19/16 07:51 Duoneb 0.5 Mg-3 Mg/3 Ml Soln INHALATION 3 ml RT-Q4H [facility] Administration Amiodarone HCl 100 mg 07/18/16 12:15 07/18/16 12:28 Cordarone PO 100 mg PC-BRKFST [facility]A Administration Aspirin 325 mg 07/19/16 09:00 Aspirin PO DAILY [facility] Atorvastatin Calcium 80 mg 07/19/16 09:00 Lipitor PO DAILY [facility] Docusate Sodium 100 mg 07/18/16 21:00 07/18/16 21:32 Colace PO 100 mg BID [facility] Administration Furosemide 20 mg 07/19/16 12:00 Lasix PO DAILY@1200 [facility] Heparin Sodium (Porcine) 0 unit 07/18/16 19:59 07/18/16 20:36 Heparin IV 4,000 unit PER PROTOCOL PRN Administration Low PTT Protocol Hydromorphone HCl 1 mg 07/18/16 08:50 07/19/16 01:32 Dilaudid IVP 1 mg Q4HR PRN Administration Pain Sodium Chloride 1,000 mls @ 100 mls/hr 07/18/16 09:00 07/18/16 18:11 Saline 0.9% IV 100 mls/hr .Q10H [facility] Administration Heparin Sodium/Dextrose 25,000 500 mls @ 19.95 mls/hr 07/18/16 20:30 02:47 unit/ IV Solution IV 9 units/kg/hr .Q24H [facility] 16.32 mls/hr Protocol Titration 11 UNITS/KG/HR Ipratropium [place] 2 spray 07/18/16 12:10 Atrovent Nasal EA NOSTRIL DAILY PRN Nasal Congestion Lactobacillus Acidoph/Bulgaricus 1 each 07/18/16 18:30 07/18/16 18:10 Lactinex PO 1 each PC-SUPPER [facility] Administration Latanoprost 1 drops 07/18/16 21:00 07/18/16 21:33 Xalatan 0.005% BOTH EYES 1 drops HS [facility] Administration Levothyroxine Sodium 50 mcg 07/18/16 12:15 07/19/16 06:40 Synthroid PO 50 mcg 0630 [facility] Administration Nifedipine 60 mg 07/19/16 08:30 Procardia Xl PO PC-BRKFST [facility] Nitroglycerin 0.4 mg 07/18/16 08:49 07/19/16 01:25 Nitrostat SUBLINGUAL 0.4 mg Q5M PRN Administration Chest Pain Pantoprazole Sodium 40 mg 07/19/16 09:00 Protonix PO DAILY [facility] Polyethylene Glycol 17 gm 07/19/16 08:30 Miralax PO PC-BRKFST [facility] Pregabalin 75 mg 07/18/16 21:00 07/18/16 21:33 Lyrica PO 75 mg BID@1200,2100 [facility] Administration Temazepam 15 mg 07/18/16 21:00 Restoril PO HS PRN sleep Intake and Output 07/18/16 07/19/16 07/19/16 22:59 06:59 14:59 Intake Total 240 1223.357 Output Total 200 1500 200 Balance 40 -276.643 -200 Intake: IV 1100 Sodium Chloride 0.9% 1, 1100 000 ml @ 100 mls/hr IV . Q10H [facility] Rx#:[id number] Intake, IV Titration 123.357 Amount Heparin Sodium,Porcine/ 123.357 D5w Pmx 25,000 unit In Dextrose/Water 1 500ml. bag @ 11 UNITS/KG/HR 19. 95 mls/hr IV .Q24H [facility] Rx #:[id number] Oral 240 Output: Urine 200 1500 200 Other: Voiding Method Urinal Urinal # Voids 1 1 Weight 88.6 kg 07/18/16 07:25 07/18/16 07:25 EKG Interpretations (text) Initial EKG shows a sinus rhythm with a first-degree AV block and no acute changes noted. Subsequent EKG shows a sinus bradycardia with a first-degree AV block and anterior ST-T wave changes Assessment and Plan Plan: Assessment and plan #1 symptoms of chest pressure and heaviness with associated shortness of breath , suggestive of acute coronary syndrome. Initial EKG shows a normal sinus rhythm with first-degree AV block and no acute changes. Subsequent EKG shows a sinus bradycardia with anterior ST-T wave changes. Troponins 0.096, 0.091, 0.062. #2 pancreatic cancer status post Whipple procedure in January, patient was receiving chemo until recently, he and Dr. Willson both decided to stop chemo. #3 paroxysmal atrial fibrillation #4 history of DVT and PE with prior Trent filter placement #5 hyperlipidemia #6 family history of premature coronary artery disease #7 hypothyroidism Plan The patient's xarelto was discontinued in the emergency room, he is currently on IV heparin. We will obtain an echocardiogram with Doppler study, replace patient's potassium. Patient has been advised that he may need to undergo cardiac catheterization for more definitive diagnosis. The risks and benefits were explained to the patient in detail. Further recommendations to follow. DNP note has been reviewed, I agree with a documented findings and plan of care. Patient was seen and examined. <Yohan Marley - Last Filed: 07/19/16 10:33> Physical Exam Vitals: Vital Signs Temp Pulse Pulse Resp BP BP Pulse Ox 07/19/16 08:13 96.4 F L 60 18 135/77 93 L 07/19/16 07:52 60 97 07/19/16 04:00 55 L 07/19/16 02:56 97.1 F L 55 L 14 104/64 97 07/19/16 01:20 106/68 07/19/16 00:00 60 07/18/16 22:59 60 14 114/62 97 07/18/16 20:00 97.3 F L 66 16 126/73 98 07/18/16 19:49 66 07/18/16 19:36 64 07/18/16 17:39 96.3 F L 66 20 144/77 98 07/18/16 17:30 66 16 07/18/16 17:10 68 16 128/70 95 07/18/16 16:04 60 16 125/80 99 07/18/16 15:08 64 07/18/16 14:59 59 L 07/18/16 14:57 55 L 16 122/74 98 07/18/16 13:00 62 18 125/74 97 07/18/16 12:00 56 L 18 122/77 100 07/18/16 11:00 76 18 136/79 100 Intake and Output 07/18/16 07/19/16 07/19/16 22:59 06:59 14:59 Intake Total 240 1223.357 113.696 Output Total 200 1500 200 Balance 40 -276.643 -86.304 Intake: IV 1100 Sodium Chloride 0.9% 1, 1100 000 ml @ 100 mls/hr IV . Q10H [facility] Rx#:[id number] Intake, IV Titration 123.357 113.696 Amount Heparin Sodium,Porcine/ 123.357 113.696 D5w Pmx 25,000 unit In Dextrose/Water 1 500ml. bag @ 11 UNITS/KG/HR 19. 95 mls/hr IV .Q24H [facility] Rx #:[id number] Oral 240 Output: Urine 200 1500 200 Other: Voiding Method Urinal Urinal # Voids 1 1 Weight 88.6 kg Results 07/19/16 09:04 07/19/16 09:04 Cardiac Enzymes 07/18/16 07/18/16 07/19/16 Range/Units 14:33 19:54 09:04 AST 46 (17-59) U/L CK-MB (CK-2) 0.6 0.6 (0.0-2.4) ng/mL Troponin I 0.091 H* 0.062 H* (0.000-0.034) ng/mL Coagulation 07/19/16 07/19/16 Range/Units 01:46 09:04 APTT 79.9 H 26.6 (22.0-30.0) sec Lipids 07/19/16 Range/Units 09:04 Triglycerides 72 (<150) mg/dL Cholesterol 117 (<200) mg/dL HDL Cholesterol 60 (40-60) mg/dL CBC 07/19/16 Range/Units 09:04 WBC 4.3 (3.8-10.6) k/uL RBC 4.24 L (4.30-5.90) m/uL Hgb 11.9 L (13.0-17.5) gm/dL Hct 38.5 L (39.0-53.0) % Plt Count 186 (150-450) k/uL Comprehensive Metabolic Panel 07/19/16 Range/Units 09:04 Sodium 141 (137-145) mmol/L Potassium 4.6 (3.5-5.1) mmol/L Chloride 109 H (98-107) mmol/L Carbon Dioxide 24 (22-30) mmol/L BUN 15 (9-20) mg/dL Creatinine 0.76 (0.66-1.25) mg/dL Glucose 92 (74-99) mg/dL Calcium 8.8 (8.4-10.2) mg/dL AST 46 (17-59) U/L ALT 37 (21-72) U/L Alkaline Phosphatase 266 H (38-126) U/L Total Protein 6.0 L (6.3-8.2) g/dL Albumin 3.2 L (3.5-5.0) g/dL Current Medications Generic Name Dose Route Start Last Admin Trade Name Freq PRN Reason Stop Dose Admin Albuterol/Ipratropium 3 ml 07/18/16 12:00 07/19/16 07:51 Duoneb 0.5 Mg-3 Mg/3 Ml Soln INHALATION 3 ml RT-Q4H [facility] Administration Amiodarone HCl 100 mg 07/18/16 12:15 07/19/16 09:25 Cordarone PO 100 mg PC-BRKFST [facility] Administration Aspirin 325 mg 07/19/16 09:00 07/19/16 09:25 Aspirin PO 325 mg DAILY [facility] Administration Atorvastatin Calcium 80 mg 07/19/16 09:00 07/19/16 09:25 Lipitor PO 80 mg DAILY [facility] Administration Docusate Sodium 100 mg 07/18/16 21:00 07/19/16 09:25 Colace PO 100 mg BID [facility] Administration Furosemide 20 mg 07/19/16 12:00 Lasix PO DAILY@1200 [facility] Heparin Sodium (Porcine) 0 unit 07/18/16 19:59 07/18/16 20:36 Heparin IV 4,000 unit PER PROTOCOL PRN Administration Low PTT Protocol Hydromorphone HCl 1 mg 07/18/16 08:50 07/19/16 09:20 Dilaudid IVP 1 mg Q4HR PRN Administration Pain Sodium Chloride 1,000 mls @ 100 mls/hr 07/18/16 09:00 07/18/16 18:11 Saline 0.9% IV 100 mls/hr .Q10H [facility] Administration Heparin Sodium/Dextrose 25,000 500 mls @ 19.95 mls/hr 07/18/16 20:30 09:45 unit/ IV Solution IV 12 units/kg/hr .Q24H [facility] 21.77 mls/hr Protocol Titration 11 UNITS/KG/HR Ipratropium [place] 2 spray 07/18/16 12:10 Atrovent Nasal EA NOSTRIL DAILY PRN Nasal Congestion Lactobacillus Acidoph/Bulgaricus 1 each 07/18/16 18:30 07/18/16 18:10 Lactinex PO 1 each PC-SUPPER [facility] Administration Latanoprost 1 drops 07/18/16 21:00 07/18/16 21:33 Xalatan 0.005% BOTH EYES 1 drops HS [facility] Administration Levothyroxine Sodium 50 mcg 07/18/16 12:15 07/19/16 06:40 Synthroid PO 50 mcg 0630 [facility] Administration Nifedipine 60 mg 07/19/16 08:30 07/19/16 09:25 Procardia Xl PO 60 mg PC-BRKFST [facility] Administration Nitroglycerin 0.4 mg 07/18/16 08:49 07/19/16 09:14 Nitrostat SUBLINGUAL 0.4 mg Q5M PRN Administration Chest Pain Pantoprazole Sodium 40 mg 07/19/16 09:00 07/19/16 09:25 Protonix PO 40 mg DAILY [facility] Administration Polyethylene Glycol 17 gm 07/19/16 08:30 07/19/16 09:25 Miralax PO 17 gm PC-BRKFST [facility] Administration Pregabalin 75 mg 07/18/16 21:00 07/18/16 21:33 Lyrica PO 75 mg BID@1200,2100 [facility] Administration Temazepam 15 mg 07/18/16 21:00 Restoril PO HS PRN sleep Intake and Output 07/18/16 07/19/16 07/19/16 22:59 06:59 14:59 Intake Total 240 1223.357 113.696 Output Total 200 1500 200 Balance 40 -276.643 -86.304 Intake: IV 1100 Sodium Chloride 0.9% 1, 1100 000 ml @ 100 mls/hr IV . Q10H [facility] Rx#:[id number] Intake, IV Titration 123.357 113.696 Amount Heparin Sodium,Porcine/ 123.357 113.696 D5w Pmx 25,000 unit In Dextrose/Water 1 500ml. bag @ 11 UNITS/KG/HR 19. 95 mls/hr IV .Q24H [facility] Rx #:[id number] Oral 240 Output: Urine 200 1500 200 Other: Voiding Method Urinal Urinal # Voids 1 1 Weight 88.6 kg 07/19/16 09:04 07/19/16 09:04
[2016-07-19 09:25] LABS: Basophils # (A) 0.1 k/uL (0-0.2); Basophils % (A) 1 %; CH 27.6; CHCM 30.4; Eosinophils # (A) 0.3 k/uL (0-0.7); Eosinophils % (A) 6 %; HCT 38.5 % (39.0-53.0); HDW 2.66; HGB 11.9 gm/dL (13.0-17.5); Hypochromasia Moderate; Luc # (Auto) 0.14; Luc % (Auto) 3; Lymphocytes # (A) 1.2 k/uL (1.0-4.8); Lymphocytes % (A) 29 %; MCHC 30.8 g/dL (31.0-37.0); MCV 90.8 fL (80.0-100.0); Mean Platelet Volume 7.2; Monocytes # (A) 0.4 k/uL (0-1.0); Monocytes % (A) 9 %; Neutrophils # (A) 2.3 k/uL (1.3-7.7); Neutrophils % (A) 53 %; RBC 4.24 m/uL (4.30-5.90); RDW 13.6 % (11.5-15.5); WBC 4.3 k/uL (3.8-10.6); WBC (Perox) 4.32
[2016-07-19] MEDS: PANTOPRAZOLE 40 MG TABLET PO SCH (09:25)
[2016-07-19] MEDS: ATORVASTATIN 80 MG TAB PO SCH (09:25)
[2016-07-19] MEDS: POLYETHYLENE GLYCOL 3350 17 GM POWD.PACK PO SCH (09:25)
[2016-07-19] MEDS: ASPIRIN 325 MG TAB PO SCH (09:25)
[2016-07-19] MEDS: AMIODARONE 200 MG TAB PO SCH (09:25)
[2016-07-19] MEDS: DOCUSATE 100 MG CAP PO SCH ×2 (09:25→20:01)
[2016-07-19 09:45] LABS: ALT 37 U/L (21-72); AST 46 U/L (17-59); Alkaline Phosphatase 266 U/L (38-126); Anion Gap 8 mmol/L; Blood Urea Nitrogen 15 mg/dL (9-20); Calcium 8.8 mg/dL (8.4-10.2); Carbon Dioxide 24 mmol/L (22-30); Chloride 109 mmol/L (98-107); Cholesterol 117 mg/dL (<200); Glucose 92 mg/dL (74-99); HDL Cholesterol 60 mg/dL (40-60); Non-African American GFR(MDRD) >60 (>60 ml/min/1.73 sqM); Potassium 4.6 mmol/L (3.5-5.1); Sodium 141 mmol/L (137-145); Total Bilirubin 0.9 mg/dL (0.2-1.3); Triglycerides 72 mg/dL (<150)
--- NOTE | 2016-07-19 10:33 | P.PN ---
Progress Note - Text Patient interviewed and examined Recurrent chest discomfort with a pleuritic component Borderline troponins No relief with nitroglycerin Borderline ST segment abnormalities and ECG Pancreatic cancer on chemo History of pulmonary embolism on xarelto and Hickman filter History of stroke Plan 2-D echo and Doppler study This was performed by bedside and reviewed. This seems to be a large cystic mass abutting the right ventricle Suggest CT of the chest and abdomen with contrast
--- NOTE | 2016-07-19 11:17 | CDI ---
In responding to this query, please exercise your independent professional judgment. The [facility] Coding Staff and Clinical Documentation Specialists appreciate your assistance in clarifying documentation, maintaining compliance with coding guidelines, accurately documenting patients condition and capturing severity of illness. The fact that a question is asked does not imply that any particular answer is desired or expected. Communication forms are a method of clarifying documentation and are not made part of the Legal Health Record. Thank you in advance for your clarification. Last Revision, May 2015 Elvira [place] [address] [place] [address] Documentation Clarification Form Date: 07/19/2016 10:55:00 AM From: Viviana Barros RN, CDS Admit Date: 07/18/2016 8:49:00 AM Patient Name: Basilio Oreilly Visit Number: [id number] Dr. Dkasha Arce, 85 year old male presents to ED for c/o chest pain that radiated across chest to left arm and shortness of breath. NSTEMI documented per ED physician: Patient History/Risk Factors: 85 y/o HX DVT/PE s/p Trent Filter, A-flutter , A-fib, CVA/TIA, Pancreatic cancer s/p Whipple procedure and Chemo, Clinical Indicators: "Repeat EKG shows sinus bradycardia with 1st degree AV block and Anterior ST-T wave changes, symptoms of chest pressure and heaviness with associated shortness of breath suggestive of Acute Coronary Syndrome" per Cardiology consult Troponin: 0.096-0.091-0.062 EKG Results: Sinus Rhythm 1st degree AV Block 63 CXR: copd and possible underlying pulm arterial htn, no acute process Treatment: Aspirin 324 mg in ED then Aspirin 325mg, Cardiology consult, Heparin gtt, ECHO-pending, In order to capture the severity of condition and necessary documentation specificity, please clarify: Type of Infarction: NSTEMI STEMI Unable to determine Other Condition, please specify Episode of Care: Initial Episode Subsequent Episode Unable to determine Other, please specify Age of infarction if known Acute IA (within the last 4 weeks) Subsequent IA (another IA within 4 weeks) New Acute IA - (another IA after 4 weeks) Old IA (IA more than 4 weeks old) Specific date if known: Unable to determine Site of myocardial injury, if known: Anterior wall Inferior wall Lateral wall Posterior wall Septal wall Other, please specify Unable to determine Coronary artery involved, if known: Right Coronary Artery Acute Marginal Artery Right Posterior Descending Artery Left Coronary Artery Left Anterior Descending Artery Left Circumflex Artery Other, please specify Unable to determine Please document in your progress notes and discharge summary in order to capture severity of illness and risk of mortality. Include clinical findings that support your diagnosis. FYI: Press F11 to launch patient chart Place X here if this finding has no clinical significance, is not applicable or if you are not able to provide any additional documentation. HOMERO
--- NOTE | 2016-07-19 11:19 | ECHOF ---
Referral Reason:assess lvf MEASUREMENTS -------- HEIGHT: 182.9 cm WEIGHT: 88.0 kg BP: 84/ RVIDd: 3.5 cm (< 3.3) IVSd: 1.0 cm (0.6 - 1.1) LVIDd: 3.9 cm (3.9 - 5.3) LVPWd: 1.5 cm (0.6 - 1.1) IVSs: 1.4 cm LVIDs: 2.7 cm LVPWs: 1.4 cm LA Diam: 3.7 cm (2.7 - 3.8) Ao Diam: 3.4 cm (2.0 - 3.7) AV Cusp: 2.0 cm (1.5 - 2.6) LA Diam: 3.5 cm (2.7 - 3.8) MV EXCURSION: 18.742 mm (> 18.000) MV EF SLOPE: 69 mm/s (70 - 150) EPSS: 1.0 cm MV E Nick: 0.34 m/s MV DecT: 287 ms MV A Nick: 0.69 m/s MV E/A Ratio: 0.49 RAP: 5.00 mmHg RVSP: 26.90 mmHg FINDINGS -------- Sinus rhythm. This was a technically adequate study. LV size, wall thickness and systolic function are normal, with an EF greater than 55%. The right ventricle is normal in size. The left atrial size is normal. The right atrial size is normal. The aortic valve is trileaflet, and appears structurally normal. No aortic stenosis or regurgitation. Mild mitral annular calcification present. Mild mitral regurgitation is present. Mild tricuspid regurgitation present. There is no evidence of pulmonary hypertension. The right ventricular systolic pressure, as measured by Doppler, is 26.90mmHg. There is no pulmonic regurgitation present. 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 It is abutting the right ventricle but no compression noted. The aortic root size is normal. There is no pericardial effusion. CONCLUSIONS -------- 1. LV size, wall thickness and systolic function are normal, with an EF greater than 55%. 2. There is no pericardial effusion. 3. Mild mitral annular calcification present. 4. Mild mitral regurgitation is present. 5. Mild tricuspid regurgitation present. 6. There is no evidence of pulmonary hypertension. 7. The right ventricular systolic pressure, as measured by Doppler, is 26.90mmHg. 8. There is no pulmonic regurgitation present. 9. 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 It is abutting the right ventricle but no compression noted. 10. The aortic root size is normal. DESKTOP PUBLISHING ASSOCIATE: Annalise Hood RDCS
[2016-07-19] MEDS ORDERED: RX INFO: IV CONTRAST WAS GIVEN 1 EACH MISC MISCELLANE PRN (11:31)
[2016-07-19] MEDS: PREGABALIN 75 MG CAP PO SCH ×2 (11:56→20:13)
[2016-07-19] MEDS: FUROSEMIDE 20 MG TAB PO SCH (11:56)
[2016-07-19] MEDS: SODIUM CHLORIDE 0.9% 1,000 ML IV SCH (11:56)
--- NOTE | 2016-07-19 13:26 | CT ---
EXAMINATION TYPE: CT angio chest DATE OF EXAM: 07/19/2016 1:11 PM COMPARISON: 01/07/16 HISTORY: Patient has no complaints at time of study. Patient had abnormal echo and episode of chest pain. CT DLP: 341.5 mGycm CONTRAST: CT chest with contrast and 3D reconstruction with MIP imaging is performed with IV Contrast, patient injected with 100 mL of Omnipaque 350. Contrast-enhanced CT of the chest was performed through the course of the pulmonary arteries with sheryl g and mediastinal window settings submitted. 3D reconstruction with MIP imaging was also performed. PULMONARY ARTERIES: Small filling defect is seen within the peripheral branch of the left lower lobe seen best on axial image 92 felt to reflect a small pulmonary embolus. No evidence for sagittal compo nent. No additional filling defects seen at this time. LUNGS: The lungs are clear and free of infiltrate. Basilar atelectasis and small effusions. No pulmon suzanne nodule or mass is detected. No pleural effusion. MEDIASTINUM: Thoracic aorta is of normal caliber . The heart is mildly enlarged. No evidence for me diastinal mass. No mediastinal lymph nodes greater than 1cm. HILAR STRUCTURES: No evidence for mass. No hilar lymph nodes greater than 1 cm. UPPER ABDOMEN: 10.1 cm hepatic cyst left lobe. Other: There is a right MediPort catheter. The surrounding the MediPort device and there is subcutane ous edema and skin thickening which may reflect underlying infection. No evidence for drainable colle ction. IMPRESSION: 1. Small filling defect is seen within the peripheral branch of the left lower lobe seen best on axi al image 92 felt to reflect a small pulmonary embolus. No evidence for sagittal component. No additio nal filling defects seen at this time. 2. Correlate for cellulitis right anterior chest wall.
[2016-07-19] MEDS: LACTOBACILLUS ACIDOPH & BULGAR 1 EACH PACKET PO SCH (17:41)
[2016-07-19] MEDS: HEPARIN SODIUM,PORCINE/D5W PMX 25,000 UNIT in DEXTROSE/WATER 1 500ML.BAG IV SCH (18:06)
[2016-07-19] MEDS: LATANOPROST 0.005% OPHTH DROPS 2.5 ML BTL BOTH EYES SCH (20:01)
[2016-07-19] MEDS ORDERED: FUROSEMIDE 10 MG/ML 4 ML VIAL ONE (20:47)
[2016-07-20] MEDS: HYDROmorphone 1 MG/ML 1 ML SYRINGE IVP PRN ×3 (00:01→10:40)
[2016-07-20] MEDS: IPRATROPIUM-ALBUTEROL 3 ML NEB INHALATION SCH ×5 (04:08→19:59)
[2016-07-20] MEDS: LEVOTHYROXINE 50 MCG TAB PO SCH (06:24)
[2016-07-20] MEDS: SODIUM CHLORIDE 0.9% 1,000 ML IV SCH ×2 (06:25→08:14)
[2016-07-20 06:53] LABS: Basophils # (A) 0.1 k/uL (0-0.2); Basophils % (A) 1 %; CH 27.7; CHCM 30.8; Eosinophils # (A) 0.4 k/uL (0-0.7); Eosinophils % (A) 8 %; HCT 36.3 % (39.0-53.0); HDW 2.64; HGB 11.3 gm/dL (13.0-17.5); Hypochromasia Moderate; Luc # (Auto) 0.11; Luc % (Auto) 2; Lymphocytes # (A) 1.6 k/uL (1.0-4.8); Lymphocytes % (A) 30 %; MCH 28.2 pg (25.0-35.0); MCHC 31.2 g/dL (31.0-37.0); MCV 90.2 fL (80.0-100.0); Mean Platelet Volume 7.6; Monocytes # (A) 0.5 k/uL (0-1.0); Monocytes % (A) 9 %; Neutrophils # (A) 2.7 k/uL (1.3-7.7); Neutrophils % (A) 50 %; RBC 4.03 m/uL (4.30-5.90); RDW 13.7 % (11.5-15.5); WBC 5.4 k/uL (3.8-10.6); WBC (Perox) 5.15
[2016-07-20 07:17] LABS: ALT 36 U/L (21-72); AST 43 U/L (17-59); Alkaline Phosphatase 239 U/L (38-126); Anion Gap 8 mmol/L; Blood Urea Nitrogen 13 mg/dL (9-20); Calcium 8.6 mg/dL (8.4-10.2); Carbon Dioxide 23 mmol/L (22-30); Chloride 107 mmol/L (98-107); Glucose 97 mg/dL (74-99); Non-African American GFR(MDRD) >60 (>60 ml/min/1.73 sqM); Potassium 4.1 mmol/L (3.5-5.1); Sodium 138 mmol/L (137-145); Total Bilirubin 0.6 mg/dL (0.2-1.3); Total Protein 5.6 g/dL (6.3-8.2)
[2016-07-20] MEDS: AMIODARONE 200 MG TAB PO SCH (08:13)
[2016-07-20] MEDS: ASPIRIN 325 MG TAB PO SCH (08:13)
[2016-07-20] MEDS: POLYETHYLENE GLYCOL 3350 17 GM POWD.PACK PO SCH (08:14)
[2016-07-20] MEDS: DOCUSATE 100 MG CAP PO SCH ×2 (08:14→22:01)
[2016-07-20] MEDS: PANTOPRAZOLE 40 MG TABLET PO SCH (08:14)
[2016-07-20] MEDS: ATORVASTATIN 80 MG TAB PO SCH (08:14)
[2016-07-20] MEDS: FUROSEMIDE 20 MG TAB PO SCH (11:55)
[2016-07-20] MEDS: PREGABALIN 75 MG CAP PO SCH ×2 (11:55→22:00)
[2016-07-20] MEDS ORDERED: HYDROmorphone 1 MG/ML 1 ML SYRINGE IVP STA (12:19)
[2016-07-20] MEDS ORDERED: ATORVASTATIN 80 MG TAB PO STA (12:27)
[2016-07-20] MEDS ORDERED: ALPRAZolam 0.5 MG TAB PO PRN (12:27)
[2016-07-20] MEDS ORDERED: ASPIRIN 325 MG TAB PO STA (12:27)
[2016-07-20] MEDS ORDERED: ALPRAZolam 0.25 MG TAB PO PRN (12:27)
[2016-07-20] MEDS ORDERED: NITROGLYCERIN SL TABS 0.4 MG TAB SUBLINGUAL PRN (12:27)
[2016-07-20] MEDS ORDERED: SODIUM CHLORIDE 0.9% 1,000 ML in EMPTY BAG 1 BAG IV ONE (12:27)
[2016-07-20] MEDS ORDERED: fentaNYL (PF) 50 MCG/ML 2 ML AMP ONE (13:13)
[2016-07-20] MEDS ORDERED: LIDOCAINE 2% INJ 20 MG/ML (20 ML MDV) ONE (13:13)
[2016-07-20] MEDS ORDERED: VERAPAMIL 2.5 MG/ML 2 ML AMP ONE (13:14)
[2016-07-20] MEDS ORDERED: fentaNYL (PF) 50 MCG/ML 2 ML AMP IV ONE (13:23)
[2016-07-20] MEDS ORDERED: LIDOCAINE 2% INJ 20 MG/ML SQ ONE (13:25)
[2016-07-20] MEDS ORDERED: VERAPAMIL SYRINGE (5 MG/10 ML) INTRAARTER ONE (13:28)
[2016-07-20] MEDS ORDERED: IV FLUID CONTINUATION 500 ML IV ONE (13:29)
[2016-07-20] MEDS ORDERED: HEPARIN SODIUM 1,000 UNIT/ML VIAL IV ONE (13:34)
[2016-07-20] MEDS ORDERED: IOHEXOL 350 MG/ML 125ML BOTTLE INJ ONE (13:39)
[2016-07-20] MEDS ORDERED: RX INFO: IV CONTRAST WAS GIVEN 1 EACH MISC MISCELLANE PRN (13:51)
[2016-07-20] MEDS ORDERED: SODIUM CHLORIDE 0.9% 1,000 ML IV SCH (14:00)
--- NOTE | 2016-07-20 14:24 | P.PN ---
Subjective Principal diagnosis: Chest pain This is a pleasant 85-year-old gentleman who follows regularly with Dr. Vital in the office. He has a known history of prior pulmonary embolism 2 with [place] filter placement, prior CVA, prior DVT, peripheral vascular disease, hyperlipidemia, hypothyroidism hypertension, family history of premature coronary artery disease, paroxysmal atrial fibrillation, patient has had a cardiac catheterization done several years ago in 2005 which revealed normal coronary arteries. Patient also has history of pancreatic cancer status post Whipple procedure in 2016, with chemo therapy. Patient was receiving chemotherapy even this year, and has recently decided along with Dr. Willson to stop chemo treatments. Patient presents to the hospital with symptoms of chest pressure and heaviness with associated shortness of breath. He states that he does get symptoms off and on however Monday evening the symptoms persisted all night long, he does state that when he takes a deep breath the symptoms feel tight in his chest however in spite of not taking a deep breath he continues to have the discomfort. He also had an episode of chest heaviness and pressure through the night last night, unrelieved with nitroglycerin, relieved with Dilaudid. EKG on arrival here shows a sinus rhythm with a first-degree AV block , no acute changes noted. Repeat EKG performed this morning shows sinus bradycardia with a first-degree AV block and anterior ST-T wave changes Chest x -ray reveals COPD and possible underlying pulmonary arterial hypertension. 07/20/2016 Echocardiogram with Doppler study was performed yesterday which revealed an ejection fraction greater than 55%. No evidence of pericardial effusion. Subcostal view revealed a cystic mass in the left lobe of the liver which was documented on computed tomography scan previously in January. A repeat CT was performed yesterday which revealed a small filling defect within the peripheral branch of the left lower lobe felt to reflect a small pulmonary embolism which was prior noted as well. Hepatic cyst similar to prior performed in January was noted. This morning patient again complained of chest pressure and heaviness, EKG was performed which showed normal sinus rhythm with anterior T- wave inversion. His pain is unrelieved with nitroglycerin. Patient will be scheduled today to undergo cardiac catheterization by Dr. Vital. The risks and the benefits were explained to the patient in detail. Objective - Vital Signs Vital signs: Vital Signs Temp 97.8 F 07/20/16 11:45 Pulse 63 07/20/16 14:06 Resp 18 07/20/16 11:45 BP 120/67 07/20/16 14:06 Pulse Ox 94 L 07/20/16 11:45 Intake & Output 07/19/16 07/20/16 07/20/16 18:59 06:59 18:59 Intake Total 4619.164 9870 370 Output Total 750 1820 Balance 354.361 -798 370 Weight 88.9 kg Intake: IV 800 200 150 Sodium Chloride 0.9% 1, 800 200 100 000 ml @ 100 mls/hr IV . Q10H YESIKA Rx#:[id number] Intake, IV Titration 304.361 Amount Heparin Sodium,Porcine/ 304.361 D5w Pmx 25,000 unit In Dextrose/Water 1 500ml. bag @ 11 UNITS/KG/HR 19. 95 mls/hr IV .Q24H YESIKA Rx #:[id number] Oral 822 220 Output: Urine 750 1820 Other: Voiding Method Urinal Urinal # Voids 1 - Exam PHYSICAL EXAMINATION: HEENT: Head is atraumatic, normocephalic. Pupils equal, round. Neck is supple. There is no elevated jugular venous pressure. HEART EXAMINATION: Heart S1 and S2 with systolic ejection murmur is heard. CHEST EXAMINATION: Lungs are clear to auscultation and precussion. No chest wall tenderness is noted on palpation or with deep breathing. ABDOMEN: Soft, nontender. Bowel sounds are heard. No organomegaly noted. EXTREMITIES: 2+ peripheral pulses with no evidence of peripheral edema and no calf tenderness noted. NEUROLOGIC patient is awake, alert and oriented -3. . - Labs CBC & Chem 7: 07/20/16 06:24 07/20/16 06:24 Labs: Abnormal Lab Results - Last 24 Hours (Table) 07/19/16 07/19/16 07/20/16 Range/Units 15:27 22:27 06:24 RBC 4.03 L (4.30-5.90) m/uL Hgb 11.3 L (13.0-17.5) gm/dL Hct 36.3 L (39.0-53.0) % APTT 37.2 H 66.0 H (22.0-30.0) sec Alkaline Phosphatase (38-126) U/L Total Protein (6.3-8.2) g/dL Albumin (3.5-5.0) g/dL 07/20/16 07/20/16 Range/Units 06:24 06:24 RBC (4.30-5.90) m/uL Hgb (13.0-17.5) gm/dL Hct (39.0-53.0) % APTT 74.9 H (22.0-30.0) sec Alkaline Phosphatase 239 H (38-126) U/L Total Protein 5.6 L (6.3-8.2) g/dL Albumin 2.9 L (3.5-5.0) g/dL Assessment and Plan Plan: Assessment and plan #1 symptoms of chest pressure and heaviness with associated shortness of breath , suggestive of acute coronary syndrome. Initial EKG shows a normal sinus rhythm with first-degree AV block and no acute changes. Subsequent EKG shows a sinus bradycardia with anterior ST-T wave changes. Troponins 0.096, 0.091, 0.062. #2 pancreatic cancer status post Whipple procedure in January, patient was receiving chemo until recently, he and Dr. Willson both decided to stop chemo. #3 paroxysmal atrial fibrillation #4 history of DVT and PE with prior [place] filter placement #5 hyperlipidemia #6 family history of premature coronary artery disease #7 hypothyroidism Plan Patient will undergo cardiac catheterization today with Dr. Vital, the risks and the benefits were explained to the patient in detail further recommendations to follow. DNP note has been reviewed, I agree with a documented findings and plan of care. Patient was seen and examined.
--- NOTE | 2016-07-20 15:46 | P.PN ---
Subjective Principal diagnosis: Chest pain Patient is an 85-year-old male well-known to my practice who presented to [facility] emergency room with a chief complaint of chest pain patient states he had pain all day on Mother's Day Monday he came to the hospital on Monday morning his troponin was slightly elevated he was admitted to telemetry floor, he has known history of pulmonary embolism and was maintained on Xarelto, which was held on 07/18/2016, agent was started on IV heparin. He was evaluated this morning on 07/19/2016 he states he is still having some pressure in his chest, he denies any fever or chills no shortness of breath no diaphoresis no nausea or vomiting no abdominal pain and no urinary symptoms. Patient has a known history of pancreatic cancer received 6 sessions of chemotherapy, and then he decided to stop having chemotherapy. He has a right subclavian port, which was scheduled to be removed in the next couple of weeks Objective - Vital Signs Vital signs: Vital Signs Temp 97.8 F 07/20/16 11:45 Pulse 63 07/20/16 14:06 Resp 18 07/20/16 11:45 BP 120/67 07/20/16 14:06 Pulse Ox 94 L 07/20/16 11:45 Intake & Output 07/19/16 07/20/16 07/20/16 18:59 06:59 18:59 Intake Total 9183.571 3099 370 Output Total 750 1820 Balance 354.361 -798 370 Weight 88.9 kg Intake: IV 800 200 150 Sodium Chloride 0.9% 1, 800 200 100 000 ml @ 100 mls/hr IV . Q10H YESIKA Rx#:[id number] Intake, IV Titration 304.361 Amount Heparin Sodium,Porcine/ 304.361 D5w Pmx 25,000 unit In Dextrose/Water 1 500ml. bag @ 11 UNITS/KG/HR 19. 95 mls/hr IV .Q24H YESIKA Rx #:[id number] Oral 822 220 Output: Urine 750 1820 Other: Voiding Method Urinal Urinal # Voids 1 - Exam In general patient is alert and oriented in no apparent distress HEENT head normocephalic and atraumatic Neck is supple no JVD no goiter no lymphadenopathy Chest exam reveals a few scattered crackles no wheezing Cardiac exam reveals regular heart sounds no gallops no murmurs Abdomen is soft nontender no organomegaly Extremity exam reveals no edema no cyanosis or clubbing - Labs CBC & Chem 7: 07/20/16 06:24 07/20/16 06:24 Labs: Abnormal Lab Results - Last 24 Hours (Table) 07/19/16 07/19/16 07/20/16 Range/Units 15:27 22:27 06:24 RBC 4.03 L (4.30-5.90) m/uL Hgb 11.3 L (13.0-17.5) gm/dL Hct 36.3 L (39.0-53.0) % APTT 37.2 H 66.0 H (22.0-30.0) sec Alkaline Phosphatase (38-126) U/L Total Protein (6.3-8.2) g/dL Albumin (3.5-5.0) g/dL 07/20/16 07/20/16 Range/Units 06:24 06:24 RBC (4.30-5.90) m/uL Hgb (13.0-17.5) gm/dL Hct (39.0-53.0) % APTT 74.9 H (22.0-30.0) sec Alkaline Phosphatase 239 H (38-126) U/L Total Protein 5.6 L (6.3-8.2) g/dL Albumin 2.9 L (3.5-5.0) g/dL Microbiology - Last 24 Hours (Table) 07/20/16 06:45 Gram Stain - Preliminary Sputum Sputum Culture - Preliminary Assessment and Plan Plan: #1 episodes of chest pain in an 85-year-old male with slight elevation in troponin level patient is maintained on IV heparin cardiology consultation was requested #2 previous history of pulmonary embolism twice #3 history of pancreatic cancer seen by Dr. Stoll was maintained on chemotherapy which she discontinued recently #4 underlying history of paroxysmal atrial flutter agent was maintained on Xarelto and amiodarone #5 underlying history of hypothyroidism maintained on Synthroid At this time cardiac catheterization was done today and revealed normal coronary arteries At this time will restart Xarelto will discontinue IV heparin plan is for discharge home tomorrow
[2016-07-20] MEDS: RIVAROXABAN 15 MG TAB PO SCH (17:25)
[2016-07-20] MEDS: LACTOBACILLUS ACIDOPH & BULGAR 1 EACH PACKET PO SCH (17:25)
--- NOTE | 2016-07-20 18:53 | CC ---
DATE OF SERVICE: Mr. Oreilly is an 85-year-old male with no prior documented history of coronary artery disease who presented with symptoms of chest discomfort that has been persistent. In addition to that, he was found to have mild elevation of troponin. In view of that, recommendation was made regarding cardiac catheterization. The procedure as well as risks and complications were discussed with the patient, who was in full understanding and agreement. PROCEDURE: The patient was brought to the laboratory monitor in a fasting, semi-sedated state after receiving fentanyl and Benadryl and achieving moderate conscious sedated state. Using Xylocaine anesthesia and Seldinger technique, a 6 Turkish sheath was introduced in the right radial artery. Selective right and left coronary angiography was performed using 5 Turkish 4 bend right and left Dat catheters, and a 5 Turkish 3-1/2 Bend left Dat catheter. Multiple views were taken of the arteries, including hemiaxial views. Following that, 5 Turkish tight pigtail catheter was introduced in the left ventricle and a 30-degree BANGURA view of the left ventricle was obtained. Following that, catheter and sheaths were removed. Hemostasis was obtained with deployment of a TR band. There was no immediate complication. Patient was returned to his room in stable condition. Of note, patient received 4500 units of intravenous heparin as well as intra-arterial Verapamil. FINDINGS LEFT MAIN: This is a large-sized vessel, short in distance, bifurcating into left circumflex and left anterior descending artery. Left main coronary artery is without any obstructive coronary artery disease. LEFT ANTERIOR DESCENDING ARTERY: This is a large-sized vessel reaching toward the apex with a wrap around the apex segment, giving rise to 2 diagonal branches. The left anterior descending artery in the mid segment has a 10% to 20% plaque. The rest of the vessel has no high-grade stenosis. LEFT CIRCUMFLEX: This is a non-dominant vessel giving rise to 2 obtuse marginal branches. The left circumflex as well as its branches has no evidence of obstructive coronary artery disease. RIGHT CORONARY ARTERY: This is a large dominant vessel bifurcating into PDA and posterolateral segment and branches. The right coronary artery and its branches have no evidence of obstructive coronary artery disease. LEFT VENTRICULOGRAM: Left ventriculogram was performed in 30-degree BANGURA view revealed normal left ventricular size and systolic function. Ejection fraction is 60%. There was no significant mitral regurgitation. HEMODYNAMICS: There was no gradient across the aortic valve. The left ventricular end-diastolic pressure was 10 mmHg. CONCLUSION: 1. Mild intimal disease in the mid left anterior descending. 2. Normal left ventricular size and systolic function. RECOMMENDATIONS: In view of findings and anatomy, I have recommended continued medical therapy with aggressive coronary risk factor modification that has been initiated. Those findings and recommendations were discussed with the patient and his family, who are in full understanding and agreement. The duration of the procedure was 20 minutes.
--- NOTE | 2016-07-20 18:55 | LTR ---
July 20, 2016 RE: Basilio Oreilly Dear Dr. Arce, I had the pleasure of performing cardiac catheterization on Mr. Oreilly at [facility] on July 20, and a full copy of the procedure note will be forwarded to you. In brief, he was found to have minimal intimal disease involving the mid LAD with a normal left ventricular size and systolic function. Based on those findings, I have recommended continued medical therapy with the aggressive coronary risk modifications you have initiated. Thank you again for allowing me to participate in this patient's care. Please feel free to call with any questions. Sincerely, MINDY GARCIA MD
[2016-07-20] MEDS ORDERED: IPRATROPIUM-ALBUTEROL 3 ML NEB INHALATION PRN (20:01)
[2016-07-20] MEDS: LATANOPROST 0.005% OPHTH DROPS 2.5 ML BTL BOTH EYES SCH (22:01)
[2016-07-21] MEDS: NITROGLYCERIN SL TABS 0.4 MG TAB SUBLINGUAL PRN ×2 (02:04→02:09)
[2016-07-21] MEDS: HYDROmorphone 1 MG/ML 1 ML SYRINGE IVP PRN ×3 (02:31→11:38)
[2016-07-21 06:26] LABS: Basophils # (A) 0.1 k/uL (0-0.2); Basophils % (A) 1 %; CH 27.2; CHCM 30.2; Eosinophils # (A) 0.3 k/uL (0-0.7); Eosinophils % (A) 6 %; HCT 38.3 % (39.0-53.0); HDW 2.45; HGB 11.7 gm/dL (13.0-17.5); Hypochromasia Marked; Luc # (Auto) 0.11; Luc % (Auto) 2; Lymphocytes # (A) 0.8 k/uL (1.0-4.8); Lymphocytes % (A) 17 %; MCH 27.6 pg (25.0-35.0); MCHC 30.5 g/dL (31.0-37.0); MCV 90.4 fL (80.0-100.0); Mean Platelet Volume 7.6; Monocytes # (A) 0.5 k/uL (0-1.0); Monocytes % (A) 10 %; Neutrophils # (A) 3.2 k/uL (1.3-7.7); Neutrophils % (A) 65 %; RBC 4.24 m/uL (4.30-5.90); RDW 13.6 % (11.5-15.5); WBC (Perox) 5.33
[2016-07-21 06:42] LABS: ALT 39 U/L (21-72); AST 47 U/L (17-59); Alkaline Phosphatase 266 U/L (38-126); Anion Gap 7 mmol/L; Blood Urea Nitrogen 14 mg/dL (9-20); Carbon Dioxide 24 mmol/L (22-30); Chloride 106 mmol/L (98-107); Glucose 102 mg/dL (74-99); Non-African American GFR(MDRD) >60 (>60 ml/min/1.73 sqM); Potassium 4.3 mmol/L (3.5-5.1); Sodium 137 mmol/L (137-145); Total Bilirubin 0.5 mg/dL (0.2-1.3); Total Protein 5.6 g/dL (6.3-8.2)
[2016-07-21] MEDS: LEVOTHYROXINE 50 MCG TAB PO SCH (06:49)
[2016-07-21] MEDS: AMIODARONE 200 MG TAB PO SCH (08:26)
[2016-07-21] MEDS: POLYETHYLENE GLYCOL 3350 17 GM POWD.PACK PO SCH (08:33)
[2016-07-21] MEDS: SODIUM CHLORIDE 0.9% 1,000 ML IV SCH ×3 (08:33→21:05)
[2016-07-21] MEDS: ASPIRIN 81 MG CHEW PO SCH (09:57)
[2016-07-21] MEDS: ATORVASTATIN 80 MG TAB PO SCH (09:57)
[2016-07-21] MEDS: PANTOPRAZOLE 40 MG TABLET PO SCH (09:57)
[2016-07-21] MEDS: DOCUSATE 100 MG CAP PO SCH ×2 (09:58→21:04)
[2016-07-21] MEDS: PREGABALIN 75 MG CAP PO SCH ×2 (13:08→21:04)
[2016-07-21] MEDS: FUROSEMIDE 20 MG TAB PO SCH (13:34)
[2016-07-21] MEDS: HYDROcodone/APAP 5-325MG 1 EACH TAB PO PRN ×2 (13:41→17:25)
--- NOTE | 2016-07-21 13:42 | P.PN ---
Subjective Chest pain Patient is an 85-year-old male well-known to my practice who presented to [facility] emergency room with a chief complaint of chest pain patient states he had pain all day on Mother's Day Monday he came to the hospital on Monday morning his troponin was slightly elevated he was admitted to telemetry floor, he has known history of pulmonary embolism and was maintained on Xarelto, which was held on 07/18/2016, agent was started on IV heparin. He was evaluated this morning on 07/19/2016 he states he is still having some pressure in his chest, he denies any fever or chills no shortness of breath no diaphoresis no nausea or vomiting no abdominal pain and no urinary symptoms. Patient has a known history of pancreatic cancer received 6 sessions of chemotherapy, and then he decided to stop having chemotherapy. He has a right subclavian port, which was scheduled to be removed in the next couple of weeks 07/21/2016. Patient underwent heart catheterization which was essentially normal. Cardiology is cleared him for discharge. Patient again complained during the night and this afternoon of episode of epigastric pain. Discussed case with cardiology. They felt that it is definitely not cardiac related. Patient has known pancreatic cancer and a large liver cyst which may be contributing to his discomfort. Pain is relieved with the IV Dilaudid. He is having bowel movements denies any difficulty urinating. Denies any shortness of breath. Patient and would like to stay 1 more night and try oral pain medications to see if they control pain. They're hesitant to be discharged Objective - Vital Signs Vital signs: Vital Signs Temp 97.3 F L 07/20/16 23:42 Pulse 68 07/21/16 04:09 Resp 22 07/21/16 04:09 BP 107/59 07/21/16 04:09 Pulse Ox 96 07/21/16 04:09 Intake & Output 07/20/16 07/21/16 07/21/16 18:59 06:59 18:59 Intake Total 610 800 360 Output Total 325 1300 500 Balance 285 -500 -140 Weight 88.8 kg Intake: IV 150 800 Sodium Chloride 0.9% 1, 100 800 000 ml @ 100 mls/hr IV . Q10H YESIKA Rx#:[id number] Oral 460 360 Output: Urine 325 1300 500 Other: Voiding Method Urinal Urinal # Voids 3 - Exam Head normocephalic Neck supple Lungs clear to auscultation bilaterally no wheezing or crackles Heart regular rate and rhythm S1-S2, no rub or gallop Abdomen is soft epigastric tenderness nondistended positive bowel sounds no hepatosplenomegaly Extremities no edema Neuro alert and orientated to 3 - Labs CBC & Chem 7: 07/21/16 06:04 07/21/16 06:04 Labs: Abnormal Lab Results - Last 24 Hours (Table) 07/21/16 07/21/16 Range/Units 06:04 06:04 RBC 4.24 L (4.30-5.90) m/uL Hgb 11.7 L (13.0-17.5) gm/dL Hct 38.3 L (39.0-53.0) % MCHC 30.5 L (31.0-37.0) g/dL Lymphocytes # 0.8 L (1.0-4.8) k/uL Glucose 102 H (74-99) mg/dL Alkaline Phosphatase 266 H (38-126) U/L Total Protein 5.6 L (6.3-8.2) g/dL Albumin 3.0 L (3.5-5.0) g/dL Microbiology - Last 24 Hours (Table) 07/20/16 06:45 Gram Stain - Final Sputum Sputum Culture - Final Assessment and Plan Plan: 1. Chest pain with elevated troponins: WA ruled out. Heart catheterization showed minimal disease involving the mid LAD with a normal left ventricle function. Cardiology recommended medical therapy. They've cleared patient for discharge. EKG normal sinus rhythm first degree AV block. Patient is been started on a full aspirin 325 mg daily Lipitor 80 mg daily and on Xarelto for anticoagulation. 2. 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 Has had [facility] filter placed in 1995 and is on Xarelto 15 mg daily started about 3 years ago 3. Pancreatic cancer status post Whipple procedure in 2015 with chemo treatment ending in March 2016 4. Paroxysmal atrial flutter: Continue Xarelto and amiodarone 5. Hypothyroidism resume Synthroid 6. Epigastric pain possibly related patient's liver cyst or pancreatic cancer. Patient has improvement with the Dilaudid. At this time will start [place] 5/ 325 one every 4 hours as needed for pain. Anticipate discharge home tomorrow if pain controlled GI prophylaxis Protonix and DVT prophylaxis Xarelto
--- NOTE | 2016-07-21 14:47 | P.PN ---
Subjective Principal diagnosis: Chest pain This is a pleasant 85-year-old gentleman who follows regularly with Dr. Vital in the office. He has a known history of prior pulmonary embolism 2 with [place] filter placement, prior CVA, prior DVT, peripheral vascular disease, hyperlipidemia, hypothyroidism hypertension, family history of premature coronary artery disease, paroxysmal atrial fibrillation, patient has had a cardiac catheterization done several years ago in 2005 which revealed normal coronary arteries. Patient also has history of pancreatic cancer status post Whipple procedure in 2016, with chemo therapy. Patient was receiving chemotherapy even this year, and has recently decided along with Dr. Willson to stop chemo treatments. Patient presents to the hospital with symptoms of chest pressure and heaviness with associated shortness of breath. He states that he does get symptoms off and on however Monday evening the symptoms persisted all night long, he does state that when he takes a deep breath the symptoms feel tight in his chest however in spite of not taking a deep breath he continues to have the discomfort. He also had an episode of chest heaviness and pressure through the night last night, unrelieved with nitroglycerin, relieved with Dilaudid. EKG on arrival here shows a sinus rhythm with a first-degree AV block , no acute changes noted. Repeat EKG performed this morning shows sinus bradycardia with a first-degree AV block and anterior ST-T wave changes Chest x -ray reveals COPD and possible underlying pulmonary arterial hypertension. 07/20/2016 Echocardiogram with Doppler study was performed yesterday which revealed an ejection fraction greater than 55%. No evidence of pericardial effusion. Subcostal view revealed a cystic mass in the left lobe of the liver which was documented on computed tomography scan previously in January. A repeat CT was performed yesterday which revealed a small filling defect within the peripheral branch of the left lower lobe felt to reflect a small pulmonary embolism which was prior noted as well. Hepatic cyst similar to prior performed in January was noted. This morning patient again complained of chest pressure and heaviness, EKG was performed which showed normal sinus rhythm with anterior T- wave inversion. His pain is unrelieved with nitroglycerin. Patient will be scheduled today to undergo cardiac catheterization by Dr. Vital. The risks and the benefits were explained to the patient in detail. 07/21/2016 Patient was seen and examined this morning, still complaining of mild discomfort in the midepigastric area. Cardiac catheterization was performed yesterday which revealed mild intimal disease in the mid LAD with normal left ventricular size and function. From cardiology's perspective, patient may be able to be discharged home once cleared by the primary, we will make him a follow-up appointment to see Dr. Vital in the office post discharge. Objective - Vital Signs Vital signs: Vital Signs Temp 97.3 F L 07/21/16 11:30 Pulse 60 07/21/16 11:30 Resp 18 07/21/16 11:30 BP 138/78 07/21/16 11:30 Pulse Ox 97 07/21/16 11:30 Intake & Output 07/20/16 07/21/16 07/21/16 18:59 06:59 18:59 Intake Total 610 800 360 Output Total 325 1300 500 Balance 285 -500 -140 Weight 88.8 kg Intake: IV 150 800 Sodium Chloride 0.9% 1, 100 800 000 ml @ 100 mls/hr IV . Q10H YESIKA Rx#:[id number] Oral 460 360 Output: Urine 325 1300 500 Other: Voiding Method Urinal Urinal # Voids 3 - Exam PHYSICAL EXAMINATION: HEENT: Head is atraumatic, normocephalic. Pupils equal, round. Neck is supple. There is no elevated jugular venous pressure. HEART EXAMINATION: Heart S1 and S2 with systolic ejection murmur is heard. CHEST EXAMINATION: Lungs are clear to auscultation and precussion. No chest wall tenderness is noted on palpation or with deep breathing. ABDOMEN: Soft, nontender. Bowel sounds are heard. No organomegaly noted. Right radial site clean and dry, good distal pulse. EXTREMITIES: 2+ peripheral pulses with no evidence of peripheral edema and no calf tenderness noted. NEUROLOGIC patient is awake, alert and oriented -3. . - Labs CBC & Chem 7: 07/21/16 06:04 07/21/16 06:04 Labs: Abnormal Lab Results - Last 24 Hours (Table) 07/21/16 07/21/16 Range/Units 06:04 06:04 RBC 4.24 L (4.30-5.90) m/uL Hgb 11.7 L (13.0-17.5) gm/dL Hct 38.3 L (39.0-53.0) % MCHC 30.5 L (31.0-37.0) g/dL Lymphocytes # 0.8 L (1.0-4.8) k/uL Glucose 102 H (74-99) mg/dL Alkaline Phosphatase 266 H (38-126) U/L Total Protein 5.6 L (6.3-8.2) g/dL Albumin 3.0 L (3.5-5.0) g/dL Microbiology - Last 24 Hours (Table) 07/20/16 06:45 Gram Stain - Final Sputum Sputum Culture - Final
[2016-07-21] MEDS: LACTOBACILLUS ACIDOPH & BULGAR 1 EACH PACKET PO SCH (17:26)
[2016-07-21] MEDS: RIVAROXABAN 15 MG TAB PO SCH (17:26)
[2016-07-21] MEDS: LATANOPROST 0.005% OPHTH DROPS 2.5 ML BTL BOTH EYES SCH (21:04)
[2016-07-22] MEDS: HYDROcodone/APAP 5-325MG 1 EACH TAB PO PRN ×3 (00:31→13:21)
[2016-07-22] MEDS: LEVOTHYROXINE 50 MCG TAB PO SCH (05:49)
[2016-07-22 07:17] LABS: Basophils # (A) 0.1 k/uL (0-0.2); Basophils % (A) 1 %; CH 27.4; CHCM 30.5; Eosinophils # (A) 0.4 k/uL (0-0.7); Eosinophils % (A) 8 %; HCT 37.3 % (39.0-53.0); HDW 2.68; HGB 11.5 gm/dL (13.0-17.5); Hypochromasia Moderate; Luc # (Auto) 0.15; Luc % (Auto) 3; Lymphocytes # (A) 1.1 k/uL (1.0-4.8); Lymphocytes % (A) 24 %; MCH 27.6 pg (25.0-35.0); MCHC 30.7 g/dL (31.0-37.0); MCV 89.9 fL (80.0-100.0); Mean Platelet Volume 7.8; Monocytes # (A) 0.5 k/uL (0-1.0); Monocytes % (A) 10 %; Neutrophils # (A) 2.5 k/uL (1.3-7.7); Neutrophils % (A) 53 %; RBC 4.15 m/uL (4.30-5.90); RDW 13.7 % (11.5-15.5); WBC 4.7 k/uL (3.8-10.6); WBC (Perox) 4.45
[2016-07-22 07:38] LABS: ALT 37 U/L (21-72); AST 44 U/L (17-59); Alkaline Phosphatase 253 U/L (38-126); Anion Gap 5 mmol/L; Blood Urea Nitrogen 15 mg/dL (9-20); Calcium 8.8 mg/dL (8.4-10.2); Carbon Dioxide 25 mmol/L (22-30); Chloride 110 mmol/L (98-107); Glucose 84 mg/dL (74-99); Non-African American GFR(MDRD) >60 (>60 ml/min/1.73 sqM); Potassium 4.4 mmol/L (3.5-5.1); Sodium 140 mmol/L (137-145); Total Bilirubin 0.7 mg/dL (0.2-1.3); Total Protein 5.7 g/dL (6.3-8.2)
[2016-07-22 08:03] VITALS: RESP 18
[2016-07-22] MEDS: POLYETHYLENE GLYCOL 3350 17 GM POWD.PACK PO SCH (08:06)
[2016-07-22] MEDS: AMIODARONE 200 MG TAB PO SCH (08:06)
[2016-07-22] MEDS: ASPIRIN 81 MG CHEW PO SCH (09:25)
[2016-07-22] MEDS: PANTOPRAZOLE 40 MG TABLET PO SCH (09:25)
[2016-07-22] MEDS: ATORVASTATIN 80 MG TAB PO SCH (09:25)
[2016-07-22] MEDS: DOCUSATE 100 MG CAP PO SCH (09:26)
[2016-07-22] MEDS: PREGABALIN 75 MG CAP PO SCH (11:21)
[2016-07-22] MEDS: FUROSEMIDE 20 MG TAB PO SCH (11:21)
--- NOTE | 2016-07-22 14:09 | P.DS ---
Providers Date of admission: 07/18/16 08:49 Expected date of discharge: 07/22/16 Attending physician: Daksha Arce Consults: 07/18/16 08:49 Consult Physician Urgent Consulting Provider: Trey Man Consult Reason/Comments: nstemi Do you want consulting provider notified?: Yes Primary care physician: Daksha Arce [facility] Course: Discharge diagnosis 1. Chest pain with elevated troponins: MD ruled out. Heart catheterization showed minimal disease involving the mid LAD with a normal left ventricle function. Cardiology recommended medical therapy. They've cleared patient for discharge. EKG normal sinus rhythm first degree AV block. Patient is been started on a full aspirin 325 mg daily Lipitor 80 mg daily and on Xarelto for anticoagulation. 2. 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 Has had [place] filter placed in 1995 and is on Xarelto 15 mg daily started about 3 years ago 3. Pancreatic cancer status post Whipple procedure in 2015 with chemo treatment ending in March 2016 4. Paroxysmal atrial flutter: Continue Xarelto and amiodarone 5. Hypothyroidism resume Synthroid 6. Epigastric pain possibly related patient's liver cyst or pancreatic cancer. Patient has improvement with the Dilaudid. At this time will start [place] 5/ 325 one every 4 hours as needed for pain. Hospital course Patient is an 85-year-old male well-known to my practice who presented to [facility] emergency room with a chief complaint of chest pain patient states he had pain all day on Mother's Day Monday he came to the hospital on Monday morning his troponin was slightly elevated he was admitted to telemetry floor, he has known history of pulmonary embolism and was maintained on Xarelto, which was held on 07/18/2016, agent was started on IV heparin. Patient was evaluated by cardiology and underwent heart catheterization. The heart catheterization showed minimal disease involving the mid LAD with normal left ventricle function. Cardiology recommended medical therapy and if cleared him for discharge. Patient continued to have pain but more in the epigastric area. LFTs and amylase and lipase with normal range. It is suspected that his epigastric pain may be related to his liver cyst or pancreatic cancer. Patient was placed on [place] and this appears to be controlling his pain. He'll be discharged with a prescription of [place] and will have him follow-up with the [facility] surgeon who did his Whipple surgery. Patient also follow-up with Dr. Arce in [address] Vital. Patient Condition at Discharge: Stable Plan - Discharge Summary New Discharge Prescriptions: HYDROcodone/APAP 5-325MG [[place] 5-325] 1 each PO Q4HR PRN #60 tab PRN Reason: Pain Discharge Medication List Latanoprost Ophth [Xalatan 0.005%] 1 drops BOTH EYES HS 12/31/13 [History] Pregabalin [Lyrica] 75 mg PO BID@1200,2100 12/31/13 [History] Levothyroxine Sodium [Synthroid] 50 mcg PO -BRKFST 03/28/14 [History] Furosemide [Lasix] 20 mg PO DAILY@1200 12/20/15 [History] NIFEdipine [NIFEdipine ER] 60 mg PO PC-BRKFST 12/20/15 [History] Omeprazole 20 mg PO DAILY PRN 12/20/15 [History] Temazepam [Restoril] 15 mg PO HS PRN 12/20/15 [History] Amiodarone [Cordarone] 100 mg PO PC-BRKFST 03/22/16 [History] Aspirin [Adult Low Dose Aspirin EC] 81 mg PO PC-BRKFST 03/22/16 [History] Simvastatin [Zocor] 20 mg PO HS 03/22/16 [History] Docusate [Colace] 100 mg PO BID 06/03/16 [History] L.acidoph,Paracasei, B.lactis [Probiotic] 1 cap PO PC-SUPPER 06/03/16 [History] Polyethylene Glycol 3350 [Miralax] 17 gm PO PC-BRKFST 06/03/16 [History] Rivaroxaban [Xarelto] 15 mg PO PC-SUPPER 06/03/16 [History] Ipratropium [place] 0.06%Nasal [Atrovent Nasal 0.06%] 2 spray EA NOSTRIL DAILY PRN 07/18/16 [History] HYDROcodone/APAP 5-325MG [[place] 5-325] 1 each PO Q4HR PRN #60 tab 07/22/16 [Rx] Follow up Appointment(s)/Referral(s): Radha Vital MD [STAFF PHYSICIAN] - 1 Week Daksha Arce MD [Primary Care Provider] - 1 Week Activity/Diet/Wound Care/Special Instructions: Diet: cardiac Activity: as tolerated Follow up with [facility] Surgeon in 1 week Discharge Disposition: HOME SELF-CARE
[2016-07-22 14:26] VITALS: BP 122/80; PULSE 59; TEMP 97.9
== END 2016-07-22 17:26 | disposition home or self-care (01) | DRG 286 ==
LOC: EC 07:03 → 6SEL 08:49
PROVIDERS: ADMIT Internal Medicine; ATTEND Internal Medicine
DX: I25.10 Atherosclerotic heart disease of native coronary artery without angina pectoris (principal); I26.99 Other pulmonary embolism without acute cor pulmonale; C25.9 Malignant neoplasm of pancreas, unspecified; I48.92 Unspecified atrial flutter; I10 Essential (primary) hypertension; K21.9 Gastro-esophageal reflux disease without esophagitis; E03.9 Hypothyroidism, unspecified; E78.5 Hyperlipidemia, unspecified; H40.9 Unspecified glaucoma; I44.0 Atrioventricular block, first degree; I48.0 Paroxysmal atrial fibrillation; I73.9 Peripheral vascular disease, unspecified; K76.89 Other specified diseases of liver; N40.0 Benign prostatic hyperplasia without lower urinary tract symptoms; Z79.01 Long term (current) use of anticoagulants; Z79.82 Long term (current) use of aspirin; Z79.899 Other long term (current) drug therapy; Z82.49 Family history of ischemic heart disease and other diseases of the circulatory system; Z85.828 Personal history of other malignant neoplasm of skin; Z86.718 Personal history of other venous thrombosis and embolism; Z86.73 Personal history of transient ischemic attack (TIA), and cerebral infarction without residual deficits; Z87.891 Personal history of nicotine dependence; Z90.411 Acquired partial absence of pancreas
CPT/HCPCS: 36415; 71020; 71275; 80053; 80061; 82550; 82553; 83690; 83735; 84484; 85025; 85347; 85610; 85730; 87070; 87205; 93005; 93306; 93458; 94640; 94760

== ENCOUNTER → 2016-08-02 | Outpatient (CLI) | payer BC, MEDICARE ==
[2016-08-02 18:31] LABS: Blood Urea Nitrogen 14 mg/dL (9-20); Non-African American GFR(MDRD) >60 (>60 ml/min/1.73 sqM)
--- NOTE | 2016-08-03 09:38 | CT ---
EXAMINATION TYPE: CT abdomen pelvis w con DATE OF EXAM: 08/02/2016 COMPARISON: 12/19/2015 INDICATION: F/U after pancreatic CA. DLP: 1628 mGycm, Automated exposure control for dose reduction was used. CONTRAST: 100 mL of Omnipaque 300. Study performed with Oral Contrast TECHNIQUE: Axial images were obtained from above the diaphragm to the pubic rami in the axial plane a t 5 mm thick sections. Reconstructed images are reviewed on the computer in the coronal plane. FINDINGS: Limited CT sections are obtained the lung bases. The lung bases are clear. CT ABDOMEN: Note is made of loops of colon anterior to the liver under the right diaphragm. 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 Liver: There is a large cyst within the tail of the left lobe liver measuring 8.4 cm and 13 Hounsfiel d units. Some mild biliary prominence is within the right lobe liver. There are very subtle hypodensi ties within the right lobe liver. Additional workup is recommended. A solid lesion such as metastatic lesion should be considered. These measure approximately 2.6 cm near the ligamentum teres, 1.0 cm in the mid right lobe liver and 1.2 cm near the right tip of the liver for example lesions. Additional small lesions are present. Spleen: Normal Pancreas: Tail of the pancreas appears atrophic. Head of the pancreas measures approximately 2.9 x 2. 3 cm but communication with the tail was not clearly identified. Has this patient had a Whipple's pro cedure? This could be recurrent tumor. Adrenal glands: The adrenal glands are normal. Gallbladder: Not visualized. Kidneys: No masses are evident. No hydronephrosis is present. No cysts are present. Delayed images were obtained through the kidneys, which remain unremarkable. Aorta: Vascular calcification is within the aorta. 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 Inferior vena cava: Normal. CT PELVIS: Fluid-filled small bowel loops are in the right upper quadrant near the expected region of the duoden um. Stomach contains oral contrast. Distal small bowel loops contain oral contrast. There appears to be prior gastric surgery. There are loops of bowel which are incompletely distended or lack oral cont rast limiting their evaluation. Fecal debris is within the sigmoid colon Appendix: Not identified Urinary bladder: Normal. Genitourinary structures: Small cystocele may be present. Calcification is within the prostate. This could be related to prior TURP. Osseous structures: No suspicious lytic or sclerotic lesions. IMPRESSIONS: 1. Slightly irregular soft tissue density at the expected head of the pancreas. Recurrent pancreatic cancer should be considered. 2. Subtle hypodensities within the liver suspicious for metastatic lesions. Consider additional evalu ation with MRI with contrast for better delineation.
== END | disposition home or self-care (01) ==
LOC: RADCTMAIN 17:42
PROVIDERS: ATTEND Internal Medicine
DX: R93.2 Abnormal findings on diagnostic imaging of liver and biliary tract (principal); K86.89 Other specified diseases of pancreas; R10.84 Generalized abdominal pain
CPT/HCPCS: 82565; 84520; 74177; 36415; Q9967

== ENCOUNTER 2016-08-29 11:37 | Inpatient (IN) | payer MEDICARE, OTHER ==
--- NOTE | 2016-08-29 11:48 | ED ---
General Adult HPI - General Chief complaint: Weakness Stated complaint: Weakness Time Seen by Provider: 08/29/16 11:40 Source: patient, EMS, RN notes reviewed, old records reviewed Mode of arrival: EMS Limitations: no limitations - History of Present Illness Initial comments: This is a 5-year-old male the ER for evaluation. Patient comes in for evaluation of weakness. Patient hasa complicated medical history including company cancer history, pancreatic cancer with possible recurrence. He denies chest pain or shortness of breath no cough congestion, family states the patient is been sleeping increasingly, with a decreased activity level. No fevers. No change in medications - Related Data Home Medications Medication Instructions Recorded Confirmed Latanoprost Ophth [Xalatan 0.005%] 1 drops BOTH EYES HS 12/31/13 08/29/16 Pregabalin [Lyrica] 75 mg PO PC-LUNCH 12/31/13 08/29/16 Levothyroxine Sodium [Synthroid] 50 mcg PO -BRKT 03/28/14 08/29/16 Furosemide [Lasix] 40 mg PO PC-LUNCH 12/20/15 08/29/16 NIFEdipine [NIFEdipine ER] 60 mg PO -BRKT 12/20/15 08/29/16 Omeprazole 20 mg PO DAILY PRN 12/20/15 08/29/16 Temazepam [Restoril] 15 mg PO HS PRN 12/20/15 08/29/16 Amiodarone [Cordarone] 100 mg PO -BRKFST 03/22/16 08/29/16 Aspirin [Adult Low Dose Aspirin EC] 81 mg PO -BRKFST 03/22/16 08/29/16 Simvastatin [Zocor] 20 mg PO HS 03/22/16 08/29/16 Docusate [Colace] 100 mg PO PC-SUPPER 06/03/16 08/29/16 L.acidoph,Paracasei, B.lactis 1 cap PO PC-SUPPER 06/03/16 08/29/16 [Probiotic] Polyethylene Glycol 3350 [Miralax] 17 gm PO PC-BRKFST 06/03/16 08/29/16 Rivaroxaban [Xarelto] 15 mg PO PC-SUPPER 06/03/16 08/29/16 Ipratropium [place] 0.06%Nasal 2 spray EA NOSTRIL DAILY PRN 07/18/16 08/29/16 [Atrovent Nasal 0.06%] HYDROcodone/APAP 5-325MG [[place] 1 tab PO Q4HR PRN 08/29/16 08/29/16 5-325] Allergies Allergy/AdvReac Type Severity Reaction Status Date / Time morphine AdvReac shaking Verified 08/29/16 12:01 Review of Systems ROS Statement: Those systems with pertinent positive or pertinent negative responses have been documented in the HPI. ROS Other: All systems not noted in ROS Statement are negative. 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 History of Any Multi-Drug Resistant Organisms: None Reported Past Surgical History: Appendectomy, Heart Catheterization, Orthopedic Surgery, Prostate Surgery Additional Past Surgical History / Comment(s): ERCP, FARIBA/cardioversion, tito filter, bilateral CATARACTS, colonoscopy , sinus sx, GANGLION CYSTS REMOVED LT WRIST, numerous skin cancer removals, whipple surgery 01/21/16 at [place], 03/24/16 port a cath R subclavian. Past Anesthesia/Blood Transfusion Reactions: No Reported Reaction Past Psychological History: No Psychological Hx Reported Smoking Status: Former smoker Past Alcohol Use History: Rare Past Drug Use History: None Reported - Past Family History Brother(s) Additional Family Medical History / Comment(s): AAA with stent Father Family Medical History: Myocardial Infarction ([place]) Additional Family Medical History / Comment(s): [place] AT 75 Mother Family Medical History: No Reported History Additional Family Medical History / Comment(s): AT AGE 79, COMPLICATIONS FROM ALZHIEMERS. General Exam Limitations: no limitations General appearance: alert, in no apparent distress, anxious, lethargic, cachectic Head exam: Present: atraumatic, normocephalic, normal inspection Eye exam: Present: normal appearance, PERRL, EOMI. Absent: scleral icterus, conjunctival injection, periorbital swelling ENT exam: Present: normal exam, mucous membranes moist Neck exam: Present: normal inspection. Absent: tenderness, meningismus, lymphadenopathy Respiratory exam: Present: normal lung sounds bilaterally. Absent: respiratory distress, wheezes, rales, rhonchi, stridor Cardiovascular Exam: Present: regular rate, normal rhythm, normal heart sounds. Absent: systolic murmur, diastolic murmur, rubs, gallop, clicks GI/Abdominal exam: Present: soft, normal bowel sounds. Absent: distended, tenderness, guarding, rebound, rigid Extremities exam: Present: normal inspection, full ROM, normal capillary refill. Absent: tenderness, pedal edema, joint swelling, calf tenderness Back exam: Present: normal inspection Neurological exam: Present: alert, oriented X3, CN II-XII intact Psychiatric exam: Present: normal affect, normal mood Skin exam: Present: warm, dry, intact, normal color. Absent: rash Course Vital Signs 08/29/16 08/29/16 08/29/16 11:44 12:15 13:21 Temperature 98.5 F Pulse Rate 93 80 88 Respiratory 18 16 16 Rate Blood Pressure 124/80 127/80 134/85 O2 Sat by Pulse 94 L 95 95 Oximetry 08/29/16 14:03 Temperature 98.3 F Pulse Rate 83 Respiratory 16 Rate Blood Pressure 137/80 O2 Sat by Pulse 95 Oximetry - Reevaluation(s) Reevaluation #1: 08/29/16 14:44 In patient with no clinical improvement from baseline EKG Findings - EKG Comments: EKG Findings:: EKG shows sinus rhythm rate of 95, [place] 184, QRS 72, QTC 4:32 Medical Decision Making - Medical Decision Making A formality year for evaluation, patient is Medical history coming in from week for weakness and decreased activity, positive significantly elevated troponin, patient be admitted for observation, telemetry, and cardiopulmonary status, trending up troponin - Lab Data Result diagrams: 08/29/16 13:03 08/29/16 13:03 Lab Results 08/29/16 08/29/16 08/29/16 Range/Units 13:03 13:03 13:03 WBC 12.2 H (3.8-10.6) k/uL RBC 4.15 L (4.30-5.90) m/uL Hgb 10.8 L (13.0-17.5) gm/dL Hct 35.7 L (39.0-53.0) % MCV 86.0 (80.0-100.0) fL MCH 26.0 (25.0-35.0) pg MCHC 30.3 L (31.0-37.0) g/dL RDW 16.0 H (11.5-15.5) % Plt Count 119 L (150-450) k/uL Neutrophils % 88 % Lymphocytes % 5 % Monocytes % 5 % Eosinophils % 0 % Basophils % 0 % Neutrophils # 10.7 H (1.3-7.7) k/uL Lymphocytes # 0.6 L (1.0-4.8) k/uL Monocytes # 0.7 (0-1.0) k/uL Eosinophils # 0.0 (0-0.7) k/uL Basophils # 0.0 (0-0.2) k/uL Hypochromasia Moderate PT (9.0-12.0) sec INR (<1.1) APTT (22.0-30.0) sec Sodium 132 L (137-145) mmol/L Potassium 4.0 (3.5-5.1) mmol/L Chloride 103 (98-107) mmol/L Carbon Dioxide 21 L (22-30) mmol/L Anion Gap 8 mmol/L BUN 18 (9-20) mg/dL Creatinine 0.85 (0.66-1.25) mg/dL Est GFR (MDRD) Af Amer >60 (>60 ml/min/1.73 sqM) Est GFR (MDRD) Non-Af >60 (>60 ml/min/1.73 sqM) Glucose 131 H (74-99) mg/dL Calcium 8.2 L (8.4-10.2) mg/dL Phosphorus 2.8 (2.5-4.5) mg/dL Magnesium 2.1 (1.6-2.3) mg/dL Total Bilirubin 2.2 H (0.2-1.3) mg/dL AST 51 (17-59) U/L ALT 28 (21-72) U/L Alkaline Phosphatase 343 H (38-126) U/L Total Creatine Kinase 64 (55-170) U/L CK-MB (CK-2) 0.9 (0.0-2.4) ng/mL CK-MB (CK-2) Rel Index 1.4 Troponin I 0.391 H* (0.000-0.034) ng/mL Total Protein 5.5 L (6.3-8.2) g/dL Albumin 2.8 L (3.5-5.0) g/dL TSH 2.780 (0.465-4.680) mIU/L Urine Color Urine Appearance (Clear) Urine pH (5.0-8.0) Ur Specific [place] (1.001-1.035) Urine Protein (Negative) Urine Glucose (UA) (Negative) Urine Ketones (Negative) Urine Blood (Negative) Urine Nitrite (Negative) Urine Bilirubin (Negative) Urine Urobilinogen (<2.0) mg/dL Ur Leukocyte Esterase (Negative) Urine RBC (0-5) /hpf Urine WBC (0-5) /hpf Ur Squamous Epith Cells (0-4) /hpf Urine Mucus (None) /hpf 08/29/16 08/29/16 Range/Units 13:03 14:00 WBC (3.8-10.6) k/uL RBC (4.30-5.90) m/uL Hgb (13.0-17.5) gm/dL Hct (39.0-53.0) % MCV (80.0-100.0) fL MCH (25.0-35.0) pg MCHC (31.0-37.0) g/dL RDW (11.5-15.5) % Plt Count (150-450) k/uL Neutrophils % % Lymphocytes % % Monocytes % % Eosinophils % % Basophils % % Neutrophils # (1.3-7.7) k/uL Lymphocytes # (1.0-4.8) k/uL Monocytes # (0-1.0) k/uL Eosinophils # (0-0.7) k/uL Basophils # (0-0.2) k/uL Hypochromasia PT 16.3 H (9.0-12.0) sec INR 1.7 (<1.1) APTT 26.7 (22.0-30.0) sec Sodium (137-145) mmol/L Potassium (3.5-5.1) mmol/L Chloride (98-107) mmol/L Carbon Dioxide (22-30) mmol/L Anion Gap mmol/L BUN (9-20) mg/dL Creatinine (0.66-1.25) mg/dL Est GFR (MDRD) Af Amer (>60 ml/min/1.73 sqM) Est GFR (MDRD) Non-Af (>60 ml/min/1.73 sqM) Glucose (74-99) mg/dL Calcium (8.4-10.2) mg/dL Phosphorus (2.5-4.5) mg/dL Magnesium (1.6-2.3) mg/dL Total Bilirubin (0.2-1.3) mg/dL AST (17-59) U/L ALT (21-72) U/L Alkaline Phosphatase (38-126) U/L Total Creatine Kinase (55-170) U/L CK-MB (CK-2) (0.0-2.4) ng/mL CK-MB (CK-2) Rel Index Troponin I (0.000-0.034) ng/mL Total Protein (6.3-8.2) g/dL Albumin (3.5-5.0) g/dL TSH (0.465-4.680) mIU/L Urine Color Yellow Urine Appearance Clear (Clear) Urine pH 6.5 (5.0-8.0) Ur Specific [place] 1.012 (1.001-1.035) Urine Protein Trace H (Negative) Urine Glucose (UA) Negative (Negative) Urine Ketones Negative (Negative) Urine Blood Small H (Negative) Urine Nitrite Negative (Negative) Urine Bilirubin Negative (Negative) Urine Urobilinogen 2.0 (<2.0) mg/dL Ur Leukocyte Esterase Negative (Negative) Urine RBC 10 H (0-5) /hpf Urine WBC 1 (0-5) /hpf Ur Squamous Epith Cells <1 (0-4) /hpf Urine Mucus Rare H (None) /hpf - Radiology Data Radiology results: report reviewed (Chest x-ray shows likely effusion), image reviewed Critical Care Time Critical Care Time: Yes Total Critical Care Time: 31 Disposition Clinical Impression: NSTEMI (non-ST elevated myocardial infarction), Weakness Disposition: ADMITTED IP TO THIS [facility] Condition: Serious Referrals: Daksha Arce MD [Primary Care Provider] - 1-2 days
[2016-08-29] MEDS ORDERED: SODIUM CHLORIDE 0.9% 1,000 ML IV STA (12:31)
[2016-08-29 13:19] LABS: Basophils % (A) 0 %; CH 26.2; CHCM 30.6; Eosinophils % (A) 0 %; HCT 35.7 % (39.0-53.0); HDW 2.64; HGB 10.8 gm/dL (13.0-17.5); Hypochromasia Moderate; Luc # (Auto) 0.19; Luc % (Auto) 2; Lymphocytes # (A) 0.6 k/uL (1.0-4.8); Lymphocytes % (A) 5 %; MCHC 30.3 g/dL (31.0-37.0); Mean Platelet Volume 8.4; Monocytes # (A) 0.7 k/uL (0-1.0); Monocytes % (A) 5 %; Neutrophils # (A) 10.7 k/uL (1.3-7.7); Neutrophils % (A) 88 %; RBC 4.15 m/uL (4.30-5.90); WBC 12.2 k/uL (3.8-10.6); WBC (Perox) 13.11
[2016-08-29 13:28] LABS: INR 1.7 (<1.1); Partial Thromboplastin Time 26.7 sec (22.0-30.0); Prothrombin Time 16.3 sec (9.0-12.0)
[2016-08-29 13:29] LABS: ALT 28 U/L (21-72); AST 51 U/L (17-59); Alkaline Phosphatase 343 U/L (38-126); Anion Gap 8 mmol/L; Blood Urea Nitrogen 18 mg/dL (9-20); Calcium 8.2 mg/dL (8.4-10.2); Carbon Dioxide 21 mmol/L (22-30); Chloride 103 mmol/L (98-107); Glucose 131 mg/dL (74-99); Magnesium 2.1 mg/dL (1.6-2.3); Non-African American GFR(MDRD) >60 (>60 ml/min/1.73 sqM); Phosphorous 2.8 mg/dL (2.5-4.5); Sodium 132 mmol/L (137-145); Total Bilirubin 2.2 mg/dL (0.2-1.3); Total Protein 5.5 g/dL (6.3-8.2)
--- NOTE | 2016-08-29 13:53 | XR ---
EXAMINATION TYPE: XR chest 2V DATE OF EXAM: 08/29/2016 COMPARISON: 07/18/2016 HISTORY: Shortness of breath TECHNIQUE: Frontal and lateral views of the chest are obtained. FINDINGS: Scattered senescent parenchymal changes noted. Hyperinflation compatible with COPD. No evidence for infiltrate. No evidence for atelectasis. Mild blunting on the lateral projection post eriorly suggests small effusion possibly of the left lung base. Heart size is stable. Mediastinal structures are stable and grossly unremarkable. No evidence for hilar prominence. Degenerative changes dorsal spine. IMPRESSION: 1. Suspect small effusion. No evidence for infiltrate.
[2016-08-29 13:56] LABS: Creatine Kinase MB 0.9 ng/mL (0.0-2.4)
[2016-08-29 14:02] LABS: Troponin I 0.391 ng/mL (0.000-0.034)
[2016-08-29 14:31] LABS: Appearance,Urine Clear (Clear); Bilirubin,Urine Negative (Negative); Glucose,Urine (UA) Negative (Negative); Ketones,Urine Negative (Negative); Leukocyte Esterase,Urine Negative (Negative); Mucus,Urine Rare /hpf; Nitrite,Urine Negative (Negative); PH, Urine 6.5 (5.0-8.0); Particle Count 1251; Protein,Urine Trace (Negative); RBC,Urine 10 /hpf (0-5); Specific Gravity,Urine 1.012 (1.001-1.035); Squamous Epithelial Cell,Urine <1 /hpf (0-4); UA Billing (MACRO vs. MICRO) MICRO; WBC,Urine 1 /hpf (0-5)
[2016-08-29] MEDS ORDERED: ASPIRIN 81 MG CHEW PO STA (14:35)
[2016-08-29] MEDS ORDERED: NITROGLYCERIN SL TABS 0.4 MG TAB SUBLINGUAL PRN (14:35)
[2016-08-29] MEDS ORDERED: HEPARIN SODIUM,PORCINE 5,000 UNIT/ML 1 ML VIAL IV ONE (14:35)
[2016-08-29] MEDS ORDERED: HEPARIN SODIUM,PORCINE 5,000 UNIT/ML 1 ML VIAL IV PRN (14:35)
[2016-08-29] MEDS ORDERED: HEPARIN SODIUM,PORCINE/D5W PMX 25,000 UNIT in DEXTROSE/WATER 1 500ML.BAG IV SCH (14:45)
[2016-08-29] MEDS ORDERED: TEMAZEPAM 15 MG CAP PO PRN (15:34)
[2016-08-29] MEDS ORDERED: IPRATROPIUM BROMIDE 0.06% NASAL SPRAY (15 ML) EA NOSTRIL PRN (15:34)
[2016-08-29] MEDS ORDERED: HYDROcodone/APAP 5-325MG 1 EACH TAB PO PRN (15:34)
[2016-08-29] MEDS ORDERED: PANTOPRAZOLE 40 MG TABLET PO PRN (15:34)
--- NOTE | 2016-08-29 15:57 | P.HPIM ---
History of Present Illness H&P Date: 08/29/16 Chief Complaint: Generalized weakness and fatigue This is a 85-year-old male with a known past medical history of pancreatic cancer status post Whipple procedure and chemotherapy treatment. Last chemotherapy treatment was in April. Also has some spots on his liver that are being followed by oncology. He is scheduled to see Dr. Stoll and have a CAT scan of the abdomen in October. Patient also has a history of atrial flutter , 2 2 separate episodes of PEs, right leg DVT, hypertension, CVA and hyperlipidemia. and daughter at bedside answering many of the questions. On his reported the patient has not been feeling well over the last few days he' s been increasingly getting weaker more fatigued and sleepy. Eyes had decreased activity level and decrease in appetite. Family became concerned and patient was brought into the emergency room via ambulance. Patient also reports a fall a week ago he had stubbed his left toe. No loss of consciousness but he also had hit the his chest wall. At this time patient complains of no chest pain. He doesn't occasional shortness of breath. And a mild cough. Denies any fever or sweats. He does admit to having some chills. Denies any nausea or vomiting. Reports having bowel movements. Denies any burning with urination. Chest x-ray shows a suspected small effusion no evidence of pneumonia. EKG shows sinus rhythm with PACs. Troponin elevated at 0.391 patient was started on IV heparin in the emergency room and cardiology has been consulted for a possible non-ST elevated myocardial infarction. Last heart catheterization was in July 2016 showing mild disease in the LAD and cardiology had recommended medical management. Patient was seen in the emergency room. There is reported no change in medications. Review of Systems Please refer to HPI otherwise unremarkable Past Medical History Past Medical History: Atrial Flutter, Cancer, CVA/TIA, Deep Vein Thrombosis (DVT ), Eye Disorder, GERD/Reflux, Hyperlipidemia, Hypertension, Prostate Disorder, Pulmonary Embolus (PE), Thyroid Disorder Additional Past Medical History / Comment(s): Pancreatic cancer diagnosed December 2015-whipple surgery/chemo-gemzar last received 03/30/16, CVA 01/23/16- occ speech issue, , bilateral feet and leg neuropathy, 12-31-13 GAEL PE'S, PE in 1995, DVT R leg, bilateral GLAUCOMA, SKIN CA, chronic R lower leg edema, constipation, BPH with surgery. History of Any Multi-Drug Resistant Organisms: None Reported Past Surgical History: Appendectomy, Heart Catheterization, Orthopedic Surgery, Prostate Surgery Additional Past Surgical History / Comment(s): ERCP, FARIBA/cardioversion, tito filter, bilateral CATARACTS, colonoscopy , sinus sx, GANGLION CYSTS REMOVED LT WRIST, numerous skin cancer removals, whipple surgery 01/21/16 at [place], 03/24/16 port a cath R subclavian. Past Anesthesia/Blood Transfusion Reactions: No Reported Reaction Past Psychological History: No Psychological Hx Reported Smoking Status: Former smoker Past Alcohol Use History: Rare Past Drug Use History: None Reported - Past Family History Brother(s) Additional Family Medical History / Comment(s): AAA with stent Father Family Medical History: Myocardial Infarction ([place]) Additional Family Medical History / Comment(s): [place] AT 75 Mother Family Medical History: No Reported History Additional Family Medical History / Comment(s): AT AGE 79, COMPLICATIONS FROM ALZHIEMERS. Medications and Allergies Home Medications Medication Instructions Recorded Confirmed Type Latanoprost Ophth [Xalatan 0.005%] 1 drops BOTH EYES HS 12/31/13 08/29/16 History Pregabalin [Lyrica] 75 mg PO PC-LUNCH 12/31/13 08/29/16 History Levothyroxine Sodium [Synthroid] 50 mcg PO -BRKFST 03/28/14 08/29/16 History Furosemide [Lasix] 40 mg PO PC-LUNCH 12/20/15 08/29/16 History NIFEdipine [NIFEdipine ER] 60 mg PO PC-BRKFST 12/20/15 08/29/16 History Omeprazole 20 mg PO DAILY PRN 12/20/15 08/29/16 History Temazepam [Restoril] 15 mg PO HS PRN 12/20/15 08/29/16 History Amiodarone [Cordarone] 100 mg PO PC-BRKFST 03/22/16 08/29/16 History Aspirin [Adult Low Dose Aspirin EC] 81 mg PO PC-BRKFST 03/22/16 08/29/16 History Simvastatin [Zocor] 20 mg PO HS 03/22/16 08/29/16 History Docusate [Colace] 100 mg PO PC-SUPPER 06/03/16 08/29/16 History L.acidoph,Paracasei, B.lactis 1 cap PO PC-SUPPER 06/03/16 08/29/16 History [Probiotic] Polyethylene Glycol 3350 [Miralax] 17 gm PO PC-BRKFST 06/03/16 08/29/16 History Rivaroxaban [Xarelto] 15 mg PO PC-SUPPER 06/03/16 08/29/16 History Ipratropium [place] 0.06%Nasal 2 spray EA NOSTRIL DAILY PRN 07/18/16 08/29/16 History [Atrovent Nasal 0.06%] HYDROcodone/APAP 5-325MG [[place] 1 tab PO Q4HR PRN 08/29/16 08/29/16 History 5-325] Allergies Allergy/AdvReac Type Severity Reaction Status Date / Time morphine AdvReac shaking Verified 08/29/16 12:01 Physical Exam Vitals: Vital Signs Temp Pulse Resp BP Pulse Ox 08/29/16 15:01 98.0 F 76 18 122/62 94 L 08/29/16 14:03 98.3 F 83 16 137/80 95 08/29/16 13:21 88 16 134/85 95 08/29/16 12:15 80 16 127/80 95 08/29/16 11:44 98.5 F 93 18 124/80 94 L Intake and Output 08/29/16 08/29/16 08/29/16 06:59 14:59 22:59 Other: Weight 99.79 kg Patient Weight 08/30/16 06:59 Weight 99.79 kg Head normocephalic Neck supple Lungs clear to auscultation bilaterally no wheezing or crackles. Port site no evidence of any cellulitis or infection Heart regular rate and rhythm S1-S2, no rub or gallop Abdomen is soft nontender nondistended positive bowel sounds no hepatosplenomegaly Extremities +1 bilateral lower extremity edema. Left great toe toenail has fallen off. Some mild bleeding. But no evidence of any infection or drainage. No cellulitis Neuro alert and orientated to 3 no facial droop or slurred speech Results CBC & Chem 7: 08/29/16 13:03 08/29/16 13:03 Labs: Abnormal Lab Results - Last 24 Hours (Table) 08/29/16 08/29/16 08/29/16 Range/Units 13:03 13:03 13:03 WBC 12.2 H (3.8-10.6) k/uL RBC 4.15 L (4.30-5.90) m/uL Hgb 10.8 L (13.0-17.5) gm/dL Hct 35.7 L (39.0-53.0) % MCHC 30.3 L (31.0-37.0) g/dL RDW 16.0 H (11.5-15.5) % Plt Count 119 L (150-450) k/uL Neutrophils # 10.7 H (1.3-7.7) k/uL Lymphocytes # 0.6 L (1.0-4.8) k/uL PT (9.0-12.0) sec Sodium 132 L (137-145) mmol/L Carbon Dioxide 21 L (22-30) mmol/L Glucose 131 H (74-99) mg/dL Calcium 8.2 L (8.4-10.2) mg/dL Total Bilirubin 2.2 H (0.2-1.3) mg/dL Alkaline Phosphatase 343 H (38-126) U/L Troponin I 0.391 H* (0.000-0.034) ng/mL Total Protein 5.5 L (6.3-8.2) g/dL Albumin 2.8 L (3.5-5.0) g/dL Urine Protein (Negative) Urine Blood (Negative) Urine RBC (0-5) /hpf Urine Mucus (None) /hpf 08/29/16 08/29/16 Range/Units 13:03 14:00 WBC (3.8-10.6) k/uL RBC (4.30-5.90) m/uL Hgb (13.0-17.5) gm/dL Hct (39.0-53.0) % MCHC (31.0-37.0) g/dL RDW (11.5-15.5) % Plt Count (150-450) k/uL Neutrophils # (1.3-7.7) k/uL Lymphocytes # (1.0-4.8) k/uL PT 16.3 H (9.0-12.0) sec Sodium (137-145) mmol/L Carbon Dioxide (22-30) mmol/L Glucose (74-99) mg/dL Calcium (8.4-10.2) mg/dL Total Bilirubin (0.2-1.3) mg/dL Alkaline Phosphatase (38-126) U/L Troponin I (0.000-0.034) ng/mL Total Protein (6.3-8.2) g/dL Albumin (3.5-5.0) g/dL Urine Protein Trace H (Negative) Urine Blood Small H (Negative) Urine RBC 10 H (0-5) /hpf Urine Mucus Rare H (None) /hpf Assessment and Plan Plan: 1. Acute non-ST elevated myocardial infarction: First Troponin 0.391. Awaiting repeat troponins. Continue the IV heparin and aspirin. Cardiology has been consulted. Last heart catheterization July 2016 revealing mild disease in the LAD 2. Generalized weakness, decreased activity and fatigue. Possibly related to an acute NE. No evidence of any acute infection. No evidence of cellulitis on the great toe. Chest x-ray negative for pneumonia. Urinalysis negative 3. Anemia with hemoglobin of 10.8 check iron studies. No evidence of active bleeding 4. Thrombocytopenia: Platelet count of 119. Repeat labs in a.m. 5. Severe protein calorie malnutrition: Patient will be started on Ensure TID. His protein deficiency may contribute to some of his lower extremity edema. Continue to monitor 6. Bilateral lower extremity edema with some mild shortness of breath. Check BNP level. Chest x-ray showed suspected small effusion 7. History of pulmonary emboli on 2 separate occasions, a right lower extremity DVT. Has Tito filter placed in 1995 and had been on Xarelto at home. Xarelto currently on hold while on IV heparin 8. History of pancreatic cancer status post Whipple procedure in 2016 with chemo treatment ending in April 2016 9. Paroxysmal atrial flutter: On Xarelto on amiodarone at home. Resume the amiodarone 10. Hypothyroidism continue Synthroid 11. Hyperbilirubinemia: Total bilirubin 2.2. Consult GI service GI prophylaxis Pepcid and DVT prophylaxis IV heparin Time with Patient: Greater than 30 (Greater than 50% of the total time spent in counseling and coordination of care.I performed an examination of the patient and discussed their management with the physician Kiln Firer. I have reviewed the Physician Kiln Firer's notes and agree with the documented findings and plan of care)
[2016-08-29] MEDS: LACTOBACILLUS ACIDOPH & BULGAR 1 EACH PACKET PO SCH (17:20)
[2016-08-29] MEDS: DOCUSATE 100 MG CAP PO SCH (17:20)
[2016-08-29 19:05] LABS: Creatine Kinase MB 0.8 ng/mL (0.0-2.4)
[2016-08-29 19:33] LABS: Troponin I 0.314 ng/mL (0.000-0.034)
[2016-08-29 20:55] LABS: % Iron Saturation 4.6 % (20-50)
[2016-08-29] MEDS ORDERED: LATANOPROST 0.005% OPHTH DROPS 2.5 ML BTL BOTH EYES SCH (21:00)
[2016-08-29] MEDS ORDERED: ATORVASTATIN 10 MG TAB PO SCH (21:00)
[2016-08-30 02:16] LABS: Creatine Kinase MB 0.8 ng/mL (0.0-2.4)
[2016-08-30 02:24] LABS: Troponin I 0.334 ng/mL (0.000-0.034)
[2016-08-30 06:29] LABS: Basophils % (A) 0 %; CH 25.9; CHCM 30.4; Eosinophils % (A) 0 %; HDW 2.64; HGB 10.5 gm/dL (13.0-17.5); Hypochromasia Marked; Luc % (Auto) 3; Lymphocytes # (A) 0.9 k/uL (1.0-4.8); Lymphocytes % (A) 10 %; MCH 25.9 pg (25.0-35.0); MCHC 30.1 g/dL (31.0-37.0); MCV 85.9 fL (80.0-100.0); Mean Platelet Volume 8.1; Monocytes # (A) 0.7 k/uL (0-1.0); Monocytes % (A) 8 %; Neutrophils # (A) 6.8 k/uL (1.3-7.7); Neutrophils % (A) 78 %; RBC 4.08 m/uL (4.30-5.90); RDW 15.9 % (11.5-15.5); WBC 8.8 k/uL (3.8-10.6); WBC (Perox) 9.13
[2016-08-30 06:38] LABS: ALT 38 U/L (21-72); AST 39 U/L (17-59); Alkaline Phosphatase 306 U/L (38-126); Anion Gap 5 mmol/L; Blood Urea Nitrogen 20 mg/dL (9-20); Carbon Dioxide 24 mmol/L (22-30); Chloride 104 mmol/L (98-107); Cholesterol 71 mg/dL (<200); Glucose 115 mg/dL (74-99); HDL Cholesterol 34 mg/dL (40-60); Non-African American GFR(MDRD) >60 (>60 ml/min/1.73 sqM); Potassium 3.8 mmol/L (3.5-5.1); Sodium 133 mmol/L (137-145); Total Bilirubin 1.7 mg/dL (0.2-1.3); Total Protein 4.8 g/dL (6.3-8.2)
[2016-08-30] MEDS ORDERED: LEVOTHYROXINE 50 MCG TAB PO SCH (07:30)
--- NOTE | 2016-08-30 08:26 | P.CRDCN ---
History of Present Illness Consult date: 08/30/16 Requesting physician: Daksha Arce Reason for Consult (text): Abnormal troponins Chief complaint: Fall History of present illness: This is a pleasant 85-year-old gentleman who follows with Dr. Vital in the office. He has a known history of prior pulmonary embolism 2 with [place] filter placement, prior CVA, prior DVT, peripheral vascular disease, hyperlipidemia, hypothyroidism, hypertension, family history of premature coronary artery disease, paroxysmal atrial fibrillation. Most recent cardiac catheterization was performed in July of this year which revealed mild intimal disease in the mid LAD with a normal left ventricular size and systolic function. Patient also has history of pancreatic cancer status post Whipple procedure in 2016 with chemotherapy. He presented to the hospital on this occasion after he fell in his bathroom. Patient states that he tripped and fell , no syncopal episode. Chest x-ray on admission revealed mild small effusion. EKG shows normal sinus rhythm with no acute changes. WBC 12.2, hemoglobin 10.5 , sodium 133, potassium 3.8, BUN 20, creatinine 0.9. Troponin 0.3, 0.3, 0.3. BNP [id number]. Blood pressure on admission 124/80 with a heart rate in the 90s, 94% on room air. According to the patient, he has been feeling extremely weak recently, there is suggestion of possible recurrence of his pancreatic CA. Patient does complain of mild shortness of breath and has noticed an increase in peripheral edema recently. 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 History of Any Multi-Drug Resistant Organisms: None Reported Past Surgical History: Appendectomy, Heart Catheterization, Orthopedic Surgery, Prostate Surgery Additional Past Surgical History / Comment(s): ERCP, FARIBA/cardioversion, trent filter, bilateral CATARACTS, colonoscopy , sinus sx, GANGLION CYSTS REMOVED LT WRIST, numerous skin cancer removals, whipple surgery 01/21/16 at [place], 03/24/16 port a cath R subclavian. Past Anesthesia/Blood Transfusion Reactions: No Reported Reaction Smoking Status: Never smoker - Past Family History Brother(s) Additional Family Medical History / Comment(s): AAA with stent Father Family Medical History: Myocardial Infarction ([place]) Additional Family Medical History / Comment(s): [place] AT 75 Mother Family Medical History: No Reported History Additional Family Medical History / Comment(s): AT AGE 79, COMPLICATIONS FROM ALZHIEMERS. Medications and Allergies Home Medications Medication Instructions Recorded Confirmed Type Latanoprost Ophth [Xalatan 0.005%] 1 drops BOTH EYES HS 12/31/13 08/29/16 History Pregabalin [Lyrica] 75 mg PO PC-LUNCH 12/31/13 08/29/16 History Levothyroxine Sodium [Synthroid] 50 mcg PO -BRKFST 03/28/14 08/29/16 History Furosemide [Lasix] 40 mg PO PC-LUNCH 12/20/15 08/29/16 History NIFEdipine [NIFEdipine ER] 60 mg PO PC-BRKFST 12/20/15 08/29/16 History Omeprazole 20 mg PO DAILY PRN 12/20/15 08/29/16 History Temazepam [Restoril] 15 mg PO HS PRN 12/20/15 08/29/16 History Amiodarone [Cordarone] 100 mg PO -BRKFST 03/22/16 08/29/16 History Aspirin [Adult Low Dose Aspirin EC] 81 mg PO PC-BRKFST 03/22/16 08/29/16 History Simvastatin [Zocor] 20 mg PO HS 03/22/16 08/29/16 History Docusate [Colace] 100 mg PO PC-SUPPER 06/03/16 08/29/16 History L.acidoph,Paracasei, B.lactis 1 cap PO PC-SUPPER 06/03/16 08/29/16 History [Probiotic] Polyethylene Glycol 3350 [Miralax] 17 gm PO PC-BRKFST 06/03/16 08/29/16 History Rivaroxaban [Xarelto] 15 mg PO PC-SUPPER 06/03/16 08/29/16 History Ipratropium [place] 0.06%Nasal 2 spray EA NOSTRIL DAILY PRN 07/18/16 08/29/16 History [Atrovent Nasal 0.06%] HYDROcodone/APAP 5-325MG [[place] 1 tab PO Q4HR PRN 08/29/16 08/29/16 History 5-325] Allergies Allergy/AdvReac Type Severity Reaction Status Date / Time morphine AdvReac shaking Verified 08/29/16 12:01 Physical Exam Vitals: Vital Signs Temp Pulse Pulse Resp BP BP Pulse Ox 08/30/16 04:00 98.1 F 81 18 124/71 08/30/16 00:00 99.1 F 94 18 127/75 08/29/16 20:00 100.9 F H 88 18 123/76 08/29/16 16:00 98.1 F 82 20 128/68 92 L 08/29/16 15:01 98.0 F 76 18 122/62 94 L 08/29/16 14:03 98.3 F 83 16 137/80 95 08/29/16 13:21 88 16 134/85 95 08/29/16 12:15 80 16 127/80 95 08/29/16 11:44 98.5 F 93 18 124/80 94 L Intake and Output 08/29/16 08/30/16 08/30/16 22:59 06:59 14:59 Intake Total 200 316.000 Output Total 150 Balance 50 316.000 Intake: Intake, IV Titration 316.000 Amount Heparin Sodium,Porcine/ 316.000 D5w Pmx 25,000 unit In Dextrose/Water 1 500ml. bag @ 20 mls/hr IV .Q24H [facility] Rx#:[id number] Oral 200 Output: Urine 150 Other: Voiding Method Diaper Incontinent # Voids 1 3 Weight 103 kg PHYSICAL EXAMINATION: HEENT: Head is atraumatic, normocephalic. Pupils equal, round. Neck is supple. There is no elevated jugular venous pressure. HEART EXAMINATION: S1 and S2 systolic murmur is heard. CHEST EXAMINATION: Lungs are clear with diminished air entry to bilateral bases. ABDOMEN: Soft, nontender. Bowel sounds are heard. No organomegaly noted. EXTREMITIES: 2+ peripheral pulses with 1+ evidence of peripheral edema and no calf tenderness noted. NEUROLOGIC [patient is awake, and oriented -3.] Very sleepy this morning. . Results 08/30/16 06:08 08/30/16 06:08 Cardiac Enzymes 08/29/16 08/29/16 08/29/16 Range/Units 13:03 13:03 18:16 AST 51 (17-59) U/L CK-MB (CK-2) 0.9 0.8 (0.0-2.4) ng/mL Troponin I 0.391 H* 0.314 H* (0.000-0.034) ng/mL 08/30/16 08/30/16 Range/Units 01:06 06:08 AST 39 (17-59) U/L CK-MB (CK-2) 0.8 (0.0-2.4) ng/mL Troponin I 0.334 H* (0.000-0.034) ng/mL Coagulation 08/29/16 08/29/16 08/30/16 Range/Units 13:03 22:25 06:08 PT 16.3 H (9.0-12.0) sec APTT 26.7 51.4 H 42.4 H (22.0-30.0) sec Lipids 08/30/16 Range/Units 06:08 Triglycerides 47 (<150) mg/dL Cholesterol 71 (<200) mg/dL HDL Cholesterol 34 L (40-60) mg/dL CBC 08/29/16 08/30/16 Range/Units 13:03 06:08 WBC 12.2 H 8.8 (3.8-10.6) k/uL RBC 4.15 L 4.08 L (4.30-5.90) m/uL Hgb 10.8 L 10.5 L (13.0-17.5) gm/dL Hct 35.7 L 35.0 L (39.0-53.0) % Plt Count 119 L 122 L (150-450) k/uL Comprehensive Metabolic Panel 08/29/16 08/30/16 Range/Units 13:03 06:08 Sodium 132 L 133 L (137-145) mmol/L Potassium 4.0 3.8 (3.5-5.1) mmol/L Chloride 103 104 (98-107) mmol/L Carbon Dioxide 21 L 24 (22-30) mmol/L BUN 18 20 (9-20) mg/dL Creatinine 0.85 0.90 (0.66-1.25) mg/dL Glucose 131 H 115 H (74-99) mg/dL Calcium 8.2 L 8.0 L (8.4-10.2) mg/dL AST 51 39 (17-59) U/L ALT 28 38 (21-72) U/L Alkaline Phosphatase 343 H 306 H (38-126) U/L Total Protein 5.5 L 4.8 L (6.3-8.2) g/dL Albumin 2.8 L 2.4 L (3.5-5.0) g/dL Current Medications Generic Name Dose Route Start Last Admin Trade Name Freq PRN Reason Stop Dose Admin Hydrocodone Bitart/Acetaminophen 1 each 08/29/16 15:34 [place] 5-325 PO Q4HR PRN Pain Amiodarone HCl 100 mg 08/30/16 08:30 Cordarone PO PC-BRKFST YESIKA Aspirin 325 mg 08/30/16 09:00 Aspirin PO DAILY [facility] Atorvastatin Calcium 10 mg 08/29/16 21:00 08/29/16 22:28 Lipitor PO 10 mg HS YESIKA Administration Docusate Sodium 100 mg 08/29/16 18:30 08/29/16 17:20 Colace PO 100 mg PC-SUPPER YESIKA Administration Famotidine 20 mg 08/30/16 09:00 Pepcid PO DAILY YESIKA Furosemide 40 mg 08/30/16 13:30 Lasix PO PC-LUNCH YESIKA Heparin Sodium (Porcine) 0 unit 08/29/16 14:35 Heparin IV Q6HR PRN Low PTT Protocol Heparin Sodium/Dextrose 25,000 500 mls @ 20 mls/hr 08/29/16 14:45 08/30/16 06 :54 unit/ IV Solution IV 12.02 units/kg/hr .Q24H YESIKA 23.98 mls/hr Protocol Titration Ipratropium [place] 2 spray 08/29/16 15:34 Atrovent Nasal EA NOSTRIL DAILY PRN Nasal Congestion Lactobacillus Acidoph/[place] 1 each 08/29/16 18:30 08/29/16 17:20 Lactinex PO 1 each PC-SUPPER YESIKA Administration Latanoprost 1 drops 08/29/16 21:00 08/29/16 22:28 Xalatan 0.005% BOTH EYES 1 drops HS YESIKA Administration Levothyroxine Sodium 50 mcg 08/30/16 07:30 08/30/16 06:34 Synthroid PO 50 mcg AC-BRKFST YESIKA Administration Nifedipine 60 mg 08/30/16 08:30 Procardia Xl PO PC-BRKFST YESIKA Nitroglycerin 0.4 mg 08/29/16 14:35 Nitrostat SUBLINGUAL Q5M PRN Chest Pain Pantoprazole Sodium 40 mg 08/29/16 15:34 Protonix PO DAILY PRN GERD Polyethylene Glycol 17 gm 08/30/16 08:30 Miralax PO PC-BRKFST YESIKA Pregabalin 75 mg 08/30/16 13:30 Lyrica PO PC-LUNCH YESIKA Temazepam 15 mg 08/29/16 15:34 Restoril PO HS PRN sleep Intake and Output 08/29/16 08/30/16 08/30/16 22:59 06:59 14:59 Intake Total 200 316.000 Output Total 150 Balance 50 316.000 Intake: Intake, IV Titration 316.000 Amount Heparin Sodium,Porcine/ 316.000 D5w Pmx 25,000 unit In Dextrose/Water 1 500ml. bag @ 20 mls/hr IV .Q24H YESIKA Rx#:[id number] Oral 200 Output: Urine 150 Other: Voiding Method Diaper Incontinent # Voids 1 3 Weight 103 kg 08/30/16 06:08 08/30/16 06:08 EKG Interpretations (text) EKG shows normal sinus rhythm with no acute changes. Assessment and Plan Plan: Assessment and plan #1 episode of fall or with progressive weakness overall. #2 abnormal troponins, not consistent with acute coronary syndrome. Most recent cardiac catheterization was performed in July of this year which revealed mild disease in the LAD. Normal LV function. #3 no clear-cut evidence of left-sided congestive heart failure #4 history of pulmonary embolism with [place] filter placement #5 prior DVT #6 history of CVA #7 paroxysmal atrial fibrillation #8 pancreatic cancer status post Whipple procedure and chemotherapy #9 hypothyroidism #10 hypertension #11 hyperlipidemia Plan We'll discontinue the IV heparin and aspirin and resume the patient's xarelto. Most recent echocardiogram with Doppler study was just performed in July of this year which revealed an ejection fraction of 55%. We will not repeat the echo this admission. We will check orthostatic heart rate and blood pressure acute shift.. Continue other medications. Further recommendations to follow. DNP note has been reviewed, I agree with a documented findings and plan of care. Patient was seen and examined.
[2016-08-30] MEDS ORDERED: AMIODARONE 200 MG TAB PO SCH (08:30)
[2016-08-30] MEDS ORDERED: POLYETHYLENE GLYCOL 3350 17 GM POWD.PACK PO SCH (08:30)
[2016-08-30] MEDS ORDERED: ASPIRIN 325 MG TAB PO SCH (09:00)
[2016-08-30] MEDS ORDERED: FAMOTIDINE 20 MG TAB PO SCH (09:00)
--- NOTE | 2016-08-30 10:05 | P.CONS ---
History of Present Illness - Reason for Consult Consult date: 08/30/16 Elevated bilirubin Requesting physician: Daksha Arce - History of Present Illness 85-year-old gentleman patient of Dr. Willson with a history of PE/DVT; Xarelto maintenance and pancreatic cancer status post Whipple, last chemotherapy April 7016 presents with weakness fatigue status post fall a week ago. Patient stated he felt a little lightheaded. Elevated troponin 0.391 possible non-ST elevated OR. Heart catheterization July 2016 reported mild disease in the LAD medical management recommended. Consultation requested for elevated bilirubin 2.2 presently 1.7. AST 39. ALT 38. Alkaline phosphatase 306. CT 08/02/2016 reported subtle hypodensities within the liver suspicious for metastatic lesions. A solid lesion such as a metastatic lesion should be considered. Slight irregular soft tissue density at the head of the pancreas recurrent pancreatic cancer should be considered. Denies abdominal pain. T-max 100.9. Chest x-ray suspect small effusion no evidence of infiltrate. Review of Systems Constitutional: Denies fever, chills, sweats, weight gain, or loss. HEENT: Negative for migraines, blurred vision or loss, earaches, drainage, tinnitus, oral mucosal lesions, dysphagia, or odynophagia. Cardiac: Hypertension. Atrial flutter. Negative for chest pain, arrhythmias, or palpitation. Respiratory: Pulmonary embolism. Negative for shortness of breath, hemoptysis, cough, or sputum production. Gastrointestinal: See HPI for pertinent findings. Genitourinary: Negative for hematuria, urgency, frequency, polyuria, dysuria, or penile discharge. Musculoskeletal: Negative for muscle aches, swelling, arthritis, and arthralgias. Neurologic: History of CVA/TIA. Hematology: Pancreatic cancer. DVT. Endocrine: Hypothyroidism. Skin: Negative for rash or itching. Skin cancer. Psychiatric: Negative history for depression and anxiety All systems: negative (See HPI) Past Medical History Past Medical History: Atrial Flutter, Cancer, CVA/TIA, Deep Vein Thrombosis (DVT ), Eye Disorder, GERD/Reflux, Hyperlipidemia, Hypertension, Prostate Disorder, Pulmonary Embolus (PE), Thyroid Disorder Additional Past Medical History / Comment(s): Pancreatic cancer diagnosed December 2015-whipple surgery/chemo-gemzar last received 03/30/16, CVA 01/23/16- occ speech issue, , bilateral feet and leg neuropathy, 12-31-13 GAEL PE'S, PE in 1995, DVT R leg, bilateral GLAUCOMA, SKIN CA, chronic R lower leg edema, constipation, BPH with surgery. History of Any Multi-Drug Resistant Organisms: None Reported Past Surgical History: Appendectomy, Heart Catheterization, Orthopedic Surgery, Prostate Surgery Additional Past Surgical History / Comment(s): ERCP, FARIBA/cardioversion, tito filter, bilateral CATARACTS, colonoscopy , sinus sx, GANGLION CYSTS REMOVED LT WRIST, numerous skin cancer removals, whipple surgery 01/21/16 at [facility], 03/24/16 port a cath R subclavian. Past Anesthesia/Blood Transfusion Reactions: No Reported Reaction Smoking Status: Never smoker - Past Family History Brother(s) Additional Family Medical History / Comment(s): AAA with stent Father Family Medical History: Myocardial Infarction (OR) Additional Family Medical History / Comment(s): OR AT 75 Mother Family Medical History: No Reported History Additional Family Medical History / Comment(s): AT AGE 79, COMPLICATIONS FROM ALZHIEMERS. Medications and Allergies Home Medications Medication Instructions Recorded Confirmed Type Latanoprost Ophth [Xalatan 0.005%] 1 drops BOTH EYES HS 12/31/13 08/29/16 History Pregabalin [Lyrica] 75 mg PO PC-LUNCH 12/31/13 08/29/16 History Levothyroxine Sodium [Synthroid] 50 mcg PO -KT 03/28/14 08/29/16 History Furosemide [Lasix] 40 mg PO PC-LUNCH 12/20/15 08/29/16 History NIFEdipine [NIFEdipine ER] 60 mg PO -BRKFST 12/20/15 08/29/16 History Omeprazole 20 mg PO DAILY PRN 12/20/15 08/29/16 History Temazepam [Restoril] 15 mg PO HS PRN 12/20/15 08/29/16 History Amiodarone [Cordarone] 100 mg PO -BRKFST 03/22/16 08/29/16 History Aspirin [Adult Low Dose Aspirin EC] 81 mg PO -KT 03/22/16 08/29/16 History Simvastatin [Zocor] 20 mg PO HS 03/22/16 08/29/16 History Docusate [Colace] 100 mg PO PC-SUPPER 06/03/16 08/29/16 History L.acidoph,Paracasei, B.lactis 1 cap PO PC-SUPPER 06/03/16 08/29/16 History [Probiotic] Polyethylene Glycol 3350 [Miralax] 17 gm PO PC-BRKFST 06/03/16 08/29/16 History Rivaroxaban [Xarelto] 15 mg PO PC-SUPPER 06/03/16 08/29/16 History Ipratropium [place] 0.06%Nasal 2 spray EA NOSTRIL DAILY PRN 07/18/16 08/29/16 History [Atrovent Nasal 0.06%] HYDROcodone/APAP 5-325MG [[place] 1 tab PO Q4HR PRN 08/29/16 08/29/16 History 5-325] Allergies Allergy/AdvReac Type Severity Reaction Status Date / Time morphine AdvReac shaking Verified 08/29/16 12:01 Physical Exam Vitals: Vital Signs Temp Pulse Pulse Resp BP BP Pulse Ox 08/30/16 08:00 98.2 F 88 18 113/79 97 08/30/16 04:00 98.1 F 81 18 124/71 08/30/16 00:00 99.1 F 94 18 127/75 08/29/16 20:00 100.9 F H 88 18 123/76 08/29/16 16:00 98.1 F 82 20 128/68 92 L 08/29/16 15:01 98.0 F 76 18 122/62 94 L 08/29/16 14:03 98.3 F 83 16 137/80 95 08/29/16 13:21 88 16 134/85 95 08/29/16 12:15 80 16 127/80 95 08/29/16 11:44 98.5 F 93 18 124/80 94 L Intake and Output 08/29/16 08/30/16 08/30/16 22:59 06:59 14:59 Intake Total 200 316.000 250 Output Total 150 Balance 50 316.000 250 Intake: Intake, IV Titration 316.000 Amount Heparin Sodium,Porcine/ 316.000 D5w Pmx 25,000 unit In Dextrose/Water 1 500ml. bag @ 20 mls/hr IV .Q24H [facility] Rx#:[id number] Oral 200 250 Output: Urine 150 Other: Voiding Method Diaper Diaper Incontinent Incontinent # Voids 1 3 Weight 103 kg General appearance: The patient is alert, oriented, in no acute distress. HET: Head is normocephalic and atraumatic. Pupils are equal and reactive. Oropharynx is clear without lesions. Neck: Supple without lymphadenopathy. Trachea midline. Heart: S1 S2. Regular rate and rhythm. Lungs: No crackles or wheezes are heard. Abdomen: Soft, nontender, nondistended with bowel sounds. No peritoneal signs. No palpable organomegaly or masses. Extremities: Normal skin color and turgor. No cyanosis, rash, ulceration, clubbing, or edema. Radial and pedal pulses are 2/4 bilaterally. Neurological: No focal deficits. Strength and sensation are grossly intact. Results CBC & Chem 7: 08/30/16 06:08 08/30/16 06:08 Labs: Abnormal Lab Results - Last 24 Hours (Table) 08/29/16 08/29/16 08/29/16 Range/Units 13:03 13:03 13:03 WBC 12.2 H (3.8-10.6) k/uL RBC 4.15 L (4.30-5.90) m/uL Hgb 10.8 L (13.0-17.5) gm/dL Hct 35.7 L (39.0-53.0) % MCHC 30.3 L (31.0-37.0) g/dL RDW 16.0 H (11.5-15.5) % Plt Count 119 L (150-450) k/uL Neutrophils # 10.7 H (1.3-7.7) k/uL Lymphocytes # 0.6 L (1.0-4.8) k/uL PT (9.0-12.0) sec APTT (22.0-30.0) sec Sodium 132 L (137-145) mmol/L Carbon Dioxide 21 L (22-30) mmol/L Glucose 131 H (74-99) mg/dL Calcium 8.2 L (8.4-10.2) mg/dL Iron (49-181) ug/dL % Saturation (20-50) % Total Bilirubin 2.2 H (0.2-1.3) mg/dL Alkaline Phosphatase 343 H (38-126) U/L Troponin I 0.391 H* (0.000-0.034) ng/mL Total Protein 5.5 L (6.3-8.2) g/dL Albumin 2.8 L (3.5-5.0) g/dL HDL Cholesterol (40-60) mg/dL Urine Protein (Negative) Urine Blood (Negative) Urine RBC (0-5) /hpf Urine Mucus (None) /hpf 08/29/16 08/29/16 08/29/16 Range/Units 13:03 14:00 18:16 WBC (3.8-10.6) k/uL RBC (4.30-5.90) m/uL Hgb (13.0-17.5) gm/dL Hct (39.0-53.0) % MCHC (31.0-37.0) g/dL RDW (11.5-15.5) % Plt Count (150-450) k/uL Neutrophils # (1.3-7.7) k/uL Lymphocytes # (1.0-4.8) k/uL PT 16.3 H (9.0-12.0) sec APTT (22.0-30.0) sec Sodium (137-145) mmol/L Carbon Dioxide (22-30) mmol/L Glucose (74-99) mg/dL Calcium (8.4-10.2) mg/dL Iron (49-181) ug/dL % Saturation (20-50) % Total Bilirubin (0.2-1.3) mg/dL Alkaline Phosphatase (38-126) U/L Troponin I 0.314 H* (0.000-0.034) ng/mL Total Protein (6.3-8.2) g/dL Albumin (3.5-5.0) g/dL HDL Cholesterol (40-60) mg/dL Urine Protein Trace H (Negative) Urine Blood Small H (Negative) Urine RBC 10 H (0-5) /hpf Urine Mucus Rare H (None) /hpf 08/29/16 08/29/16 08/30/16 Range/Units 18:16 22:25 01:06 WBC (3.8-10.6) k/uL RBC (4.30-5.90) m/uL Hgb (13.0-17.5) gm/dL Hct (39.0-53.0) % MCHC (31.0-37.0) g/dL RDW (11.5-15.5) % Plt Count (150-450) k/uL Neutrophils # (1.3-7.7) k/uL Lymphocytes # (1.0-4.8) k/uL PT (9.0-12.0) sec APTT 51.4 H (22.0-30.0) sec Sodium (137-145) mmol/L Carbon Dioxide (22-30) mmol/L Glucose (74-99) mg/dL Calcium (8.4-10.2) mg/dL Iron 15 L (49-181) ug/dL % Saturation 4.6 L (20-50) % Total Bilirubin (0.2-1.3) mg/dL Alkaline Phosphatase (38-126) U/L Troponin I 0.334 H* (0.000-0.034) ng/mL Total Protein (6.3-8.2) g/dL Albumin (3.5-5.0) g/dL HDL Cholesterol (40-60) mg/dL Urine Protein (Negative) Urine Blood (Negative) Urine RBC (0-5) /hpf Urine Mucus (None) /hpf 08/30/16 08/30/16 08/30/16 Range/Units 06:08 06:08 06:08 WBC (3.8-10.6) k/uL RBC 4.08 L (4.30-5.90) m/uL Hgb 10.5 L (13.0-17.5) gm/dL Hct 35.0 L (39.0-53.0) % MCHC 30.1 L (31.0-37.0) g/dL RDW 15.9 H (11.5-15.5) % Plt Count 122 L (150-450) k/uL Neutrophils # (1.3-7.7) k/uL Lymphocytes # 0.9 L (1.0-4.8) k/uL PT (9.0-12.0) sec APTT 42.4 H (22.0-30.0) sec Sodium 133 L (137-145) mmol/L Carbon Dioxide (22-30) mmol/L Glucose 115 H (74-99) mg/dL Calcium 8.0 L (8.4-10.2) mg/dL Iron (49-181) ug/dL % Saturation (20-50) % Total Bilirubin 1.7 H (0.2-1.3) mg/dL Alkaline Phosphatase 306 H (38-126) U/L Troponin I (0.000-0.034) ng/mL Total Protein 4.8 L (6.3-8.2) g/dL Albumin 2.4 L (3.5-5.0) g/dL HDL Cholesterol 34 L (40-60) mg/dL Urine Protein (Negative) Urine Blood (Negative) Urine RBC (0-5) /hpf Urine Mucus (None) /hpf Microbiology - Last 24 Hours (Table) 08/29/16 14:00 Urine Culture - Preliminary Urine,Voided Assessment and Plan (1) Hyperbilirubinemia Narrative/Plan: 85-year-old gentleman presents with weakness fatigue elevated troponin level with a history of pancreatic carcinoma status post Whipple with hyperbilirubinemia without abdominal pain. CT imaging July 2016 reported subtle hypodensities within the liver suspicious for metastatic disease recurrent pancreatic cancer cannot be excluded. Status: Acute (2) Pancreatic cancer Narrative/Plan: History of pancreatic cancer status post Whipple last chemotherapy April 2016. Status: Acute (3) Elevated troponin Status: Acute Plan: 1. Recommend MRCP. 2. Supportive measures. 3. Will follow with you. Thank you for this kind referral and the opportunity to participate in the care of your patient. This consultation was discussed with Dr. Mejia. The impression and plan of care have been directed as dictated.
[2016-08-30 10:35] VITALS: BMI 27.6
--- NOTE | 2016-08-30 12:28 | P.PN ---
Subjective Principal diagnosis: Generalized weakness This is a 85-year-old male with a known past medical history of pancreatic cancer status post Whipple procedure and chemotherapy treatment. Last chemotherapy treatment was in April. Also has some spots on his liver that are being followed by oncology. He is scheduled to see Dr. Stoll and have a CAT scan of the abdomen in October. Patient also has a history of atrial flutter , 2 2 separate episodes of PEs, right leg DVT, hypertension, CVA and hyperlipidemia. and daughter at bedside answering many of the questions. On his reported the patient has not been feeling well over the last few days he' s been increasingly getting weaker more fatigued and sleepy. Eyes had decreased activity level and decrease in appetite. Family became concerned and patient was brought into the emergency room via ambulance. Patient also reports a fall a week ago he had stubbed his left toe. No loss of consciousness but he also had hit the his chest wall. At this time patient complains of no chest pain. He doesn't occasional shortness of breath. And a mild cough. Denies any fever or sweats. He does admit to having some chills. Denies any nausea or vomiting. Reports having bowel movements. Denies any burning with urination. Chest x-ray shows a suspected small effusion no evidence of pneumonia. EKG shows sinus rhythm with PACs. Troponin elevated at 0.391 patient was started on IV heparin in the emergency room and cardiology has been consulted for a possible non-ST elevated myocardial infarction. Last heart catheterization was in July 2016 showing mild disease in the LAD and cardiology had recommended medical management. Patient was seen in the emergency room. There is reported no change in medications. Objective - Vital Signs Vital signs: Vital Signs Temp 98.6 F 08/30/16 12:00 Pulse 86 08/30/16 12:00 Resp 18 08/30/16 12:00 BP 132/75 08/30/16 12:10 Pulse Ox 97 08/30/16 08:00 Intake & Output 08/29/16 08/30/16 08/30/16 18:59 06:59 18:59 Intake Total 516.000 375 Output Total 150 200 Balance -150 516.000 175 Weight 99.79 kg 103 kg 103 kg Intake: Intake, IV Titration 316.000 Amount Heparin Sodium,Porcine/ 316.000 D5w Pmx 25,000 unit In Dextrose/Water 1 500ml. bag @ 20 mls/hr IV .Q24H [facility] Rx#:[id number] Oral 200 375 Output: Urine 150 200 Other: Voiding Method Diaper Diaper Incontinent Incontinent # Voids 1 3 - Exam Patient somnolent, able to wake up and answer questions denies any pain or discomfort complaining of severe weakness HEENT head normocephalic and atraumatic Neck is supple no JVD no goiter no lymphadenopathy Chest exam reveals a few scattered crackles in both lung zendejas no wheezing Cardiac exam reveals regular heart sounds S1 and S2 no gallops no murmurs Abdomen is soft nontender no organomegaly Extremity exam reveals minimal edema no cyanosis or clubbing - Labs CBC & Chem 7: 08/30/16 06:08 08/30/16 06:08 Labs: Abnormal Lab Results - Last 24 Hours (Table) 08/29/16 08/29/16 08/29/16 Range/Units 13:03 13:03 13:03 WBC 12.2 H (3.8-10.6) k/uL RBC 4.15 L (4.30-5.90) m/uL Hgb 10.8 L (13.0-17.5) gm/dL Hct 35.7 L (39.0-53.0) % MCHC 30.3 L (31.0-37.0) g/dL RDW 16.0 H (11.5-15.5) % Plt Count 119 L (150-450) k/uL Neutrophils # 10.7 H (1.3-7.7) k/uL Lymphocytes # 0.6 L (1.0-4.8) k/uL PT (9.0-12.0) sec APTT (22.0-30.0) sec Sodium 132 L (137-145) mmol/L Carbon Dioxide 21 L (22-30) mmol/L Glucose 131 H (74-99) mg/dL Calcium 8.2 L (8.4-10.2) mg/dL Iron (49-181) ug/dL % Saturation (20-50) % Total Bilirubin 2.2 H (0.2-1.3) mg/dL Alkaline Phosphatase 343 H (38-126) U/L Troponin I 0.391 H* (0.000-0.034) ng/mL Total Protein 5.5 L (6.3-8.2) g/dL Albumin 2.8 L (3.5-5.0) g/dL HDL Cholesterol (40-60) mg/dL Urine Protein (Negative) Urine Blood (Negative) Urine RBC (0-5) /hpf Urine Mucus (None) /hpf 08/29/16 08/29/16 08/29/16 Range/Units 13:03 14:00 18:16 WBC (3.8-10.6) k/uL RBC (4.30-5.90) m/uL Hgb (13.0-17.5) gm/dL Hct (39.0-53.0) % MCHC (31.0-37.0) g/dL RDW (11.5-15.5) % Plt Count (150-450) k/uL Neutrophils # (1.3-7.7) k/uL Lymphocytes # (1.0-4.8) k/uL PT 16.3 H (9.0-12.0) sec APTT (22.0-30.0) sec Sodium (137-145) mmol/L Carbon Dioxide (22-30) mmol/L Glucose (74-99) mg/dL Calcium (8.4-10.2) mg/dL Iron (49-181) ug/dL % Saturation (20-50) % Total Bilirubin (0.2-1.3) mg/dL Alkaline Phosphatase (38-126) U/L Troponin I 0.314 H* (0.000-0.034) ng/mL Total Protein (6.3-8.2) g/dL Albumin (3.5-5.0) g/dL HDL Cholesterol (40-60) mg/dL Urine Protein Trace H (Negative) Urine Blood Small H (Negative) Urine RBC 10 H (0-5) /hpf Urine Mucus Rare H (None) /hpf 08/29/16 08/29/16 08/30/16 Range/Units 18:16 22:25 01:06 WBC (3.8-10.6) k/uL RBC (4.30-5.90) m/uL Hgb (13.0-17.5) gm/dL Hct (39.0-53.0) % MCHC (31.0-37.0) g/dL RDW (11.5-15.5) % Plt Count (150-450) k/uL Neutrophils # (1.3-7.7) k/uL Lymphocytes # (1.0-4.8) k/uL PT (9.0-12.0) sec APTT 51.4 H (22.0-30.0) sec Sodium (137-145) mmol/L Carbon Dioxide (22-30) mmol/L Glucose (74-99) mg/dL Calcium (8.4-10.2) mg/dL Iron 15 L (49-181) ug/dL % Saturation 4.6 L (20-50) % Total Bilirubin (0.2-1.3) mg/dL Alkaline Phosphatase (38-126) U/L Troponin I 0.334 H* (0.000-0.034) ng/mL Total Protein (6.3-8.2) g/dL Albumin (3.5-5.0) g/dL HDL Cholesterol (40-60) mg/dL Urine Protein (Negative) Urine Blood (Negative) Urine RBC (0-5) /hpf Urine Mucus (None) /hpf 08/30/16 08/30/16 08/30/16 Range/Units 06:08 06:08 06:08 WBC (3.8-10.6) k/uL RBC 4.08 L (4.30-5.90) m/uL Hgb 10.5 L (13.0-17.5) gm/dL Hct 35.0 L (39.0-53.0) % MCHC 30.1 L (31.0-37.0) g/dL RDW 15.9 H (11.5-15.5) % Plt Count 122 L (150-450) k/uL Neutrophils # (1.3-7.7) k/uL Lymphocytes # 0.9 L (1.0-4.8) k/uL PT (9.0-12.0) sec APTT 42.4 H (22.0-30.0) sec Sodium 133 L (137-145) mmol/L Carbon Dioxide (22-30) mmol/L Glucose 115 H (74-99) mg/dL Calcium 8.0 L (8.4-10.2) mg/dL Iron (49-181) ug/dL % Saturation (20-50) % Total Bilirubin 1.7 H (0.2-1.3) mg/dL Alkaline Phosphatase 306 H (38-126) U/L Troponin I (0.000-0.034) ng/mL Total Protein 4.8 L (6.3-8.2) g/dL Albumin 2.4 L (3.5-5.0) g/dL HDL Cholesterol 34 L (40-60) mg/dL Urine Protein (Negative) Urine Blood (Negative) Urine RBC (0-5) /hpf Urine Mucus (None) /hpf Microbiology - Last 24 Hours (Table) 08/29/16 14:00 Urine Culture - Preliminary Urine,Voided Assessment and Plan Plan: 1. Acute non-ST elevated myocardial infarction: First Troponin 0.391. Awaiting repeat troponins. Continue the IV heparin and aspirin. Cardiology has been consulted. Last heart catheterization July 2016 revealing mild disease in the LAD, patient was evaluated by cardiology today, no intervention recommended at this time. 2. Generalized weakness, decreased activity and fatigue. Possibly related to an acute RI. No evidence of any acute infection. No evidence of cellulitis on the great toe. Chest x-ray negative for pneumonia. Urinalysis negative 3. Anemia with hemoglobin of 10.8 check iron studies. No evidence of active bleeding 4. Thrombocytopenia: Platelet count of 119. Repeat labs in a.m. 5. Severe protein calorie malnutrition: Patient will be started on Ensure TID. His protein deficiency may contribute to some of his lower extremity edema. Continue to monitor 6. Bilateral lower extremity edema with some mild shortness of breath. Check BNP level. Chest x-ray showed suspected small effusion 7. History of pulmonary emboli on 2 separate occasions, a right lower extremity DVT. Has Trent filter placed in 1995 and had been on Xarelto at home. Xarelto currently on hold while on IV heparin 8. History of pancreatic cancer status post Whipple procedure in 2016 with chemo treatment ending in April 2016 9. Paroxysmal atrial flutter: On Xarelto on amiodarone at home. Resume the amiodarone 10. Hypothyroidism continue Synthroid 11. Hyperbilirubinemia: Total bilirubin 2.2. Consult GI service, possible MRCP GI prophylaxis Pepcid and DVT prophylaxis patient on Xarelto
[2016-08-30] MEDS ORDERED: PREGABALIN 75 MG CAP PO SCH (13:30)
[2016-08-30] MEDS ORDERED: FUROSEMIDE 40 MG TAB PO SCH (13:30)
[2016-08-30] MEDS: RIVAROXABAN 15 MG TAB PO SCH ×2 (18:27→19:01)
[2016-08-30] MEDS: LACTOBACILLUS ACIDOPH & BULGAR 1 EACH PACKET PO SCH ×2 (18:27→18:33)
[2016-08-30] MEDS: DOCUSATE 100 MG CAP PO SCH ×2 (18:27→19:01)
[2016-08-30 18:55] LABS: Glucose,Whole Blood 94 mg/dL (75-99)
[2016-08-30 19:21] LABS: Glucose,Whole Blood 103 mg/dL (75-99)
--- NOTE | 2016-08-30 19:25 | CT ---
EXAMINATION TYPE: CT brain wo con for TPA DATE OF EXAM: 08/30/2016 COMPARISON: NONE HISTORY: Right sided weakness, agonal breathing and left visual deviation. CT DLP: 3213.[address] of the brain was performed. The ventricles, basal cisterns and sulci overlying the cerebral convexities demonstrate mild enlargem ent. There is no evidence for intracranial hemorrhage or sulcal effacement. There is decreased attenuation about the periventricular white matter and deep white matter of both c erebral hemispheres, compatible with chronic small vessel ischemia. Differential diagnosis does inclu de demyelination. No mass effects are seen.No midline shift. Osseous calvarium is intact. If symptoms persist consider MRI. IMPRESSION: 1. Age related atrophic and chronic small vessel ischemic change without acute intracranial process s een at this time.
[2016-08-30] MEDS ORDERED: MORPHINE SULFATE 4 MG/ML SYRINGE IV PRN (19:35)
[2016-08-30] MEDS ORDERED: LORazepam 2 MG/ML SYRINGE IV PRN (19:35)
[2016-08-30] MEDS ORDERED: ONDANSETRON 4 MG/2 ML VIAL IVP PRN (19:35)
[2016-08-30] MEDS ORDERED: MORPHINE SULFATE (100 MG/2 ML) 100 MG in SODIUM CHLORIDE 0.9% 100 ML IV SCH (19:45)
[2016-08-30] MEDS ORDERED: SCOPOLAMINE 1.5MG/72HR PATCH TRANSDERM SCH (20:00)
[2016-08-30 20:11] VITALS: RESP 0; TEMP 99.1
[2016-08-30 20:19] VITALS: PULSE 0
[2016-08-30 20:20] VITALS: BP 0/0
--- NOTE | 2016-08-30 20:31 | P.CNNES ---
History of Present Illness Consult date: 08/30/16 Reason for Consult: Patient with acute stroke and unresponsive state. History of Present Illness: Neurology was consulted to see patient Mr. Basilio Oreilly on 08/30/[address] Mullen arrived into the intensive care unit this evening at 8:20 PM., to see the patient in room 614 and was informed by ICU nurse that the patient has now been made comfort care measures by the family. Neurology consultation has now been canceled. 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 History of Any Multi-Drug Resistant Organisms: None Reported Past Surgical History: Appendectomy, Heart Catheterization, Orthopedic Surgery, Prostate Surgery Additional Past Surgical History / Comment(s): ERCP, FARIBA/cardioversion, tito filter, bilateral CATARACTS, colonoscopy , sinus sx, GANGLION CYSTS REMOVED LT WRIST, numerous skin cancer removals, whipple surgery 01/21/16 at [place], 03/24/16 port a cath R subclavian. Past Anesthesia/Blood Transfusion Reactions: No Reported Reaction Smoking Status: Never smoker - Past Family History Brother(s) Additional Family Medical History / Comment(s): AAA with stent Father Family Medical History: Myocardial Infarction (CT) Additional Family Medical History / Comment(s): CT AT 75 Mother Family Medical History: No Reported History Additional Family Medical History / Comment(s): AT AGE 79, COMPLICATIONS FROM ALZHIEMERS. Medications and Allergies Home Medications Medication Instructions Recorded Confirmed Type Latanoprost Ophth [Xalatan 0.005%] 1 drops BOTH EYES HS 12/31/13 08/29/16 History Pregabalin [Lyrica] 75 mg PO PC-LUNCH 12/31/13 08/29/16 History Levothyroxine Sodium [Synthroid] 50 mcg PO AC-BRKFST 03/28/14 08/29/16 History Furosemide [Lasix] 40 mg PO PC-LUNCH 12/20/15 08/29/16 History NIFEdipine [NIFEdipine ER] 60 mg PO PC-BRKFST 12/20/15 08/29/16 History Omeprazole 20 mg PO DAILY PRN 12/20/15 08/29/16 History Temazepam [Restoril] 15 mg PO HS PRN 12/20/15 08/29/16 History Amiodarone [Cordarone] 100 mg PO PC-BRKFST 03/22/16 08/29/16 History Aspirin [Adult Low Dose Aspirin EC] 81 mg PO PC-KFST 03/22/16 08/29/16 History Simvastatin [Zocor] 20 mg PO HS 03/22/16 08/29/16 History Docusate [Colace] 100 mg PO PC-SUPPER 06/03/16 08/29/16 History L.acidoph,Paracasei, B.lactis 1 cap PO PC-SUPPER 06/03/16 08/29/16 History [Probiotic] Polyethylene Glycol 3350 [Miralax] 17 gm PO PC-BRKFST 06/03/16 08/29/16 History Rivaroxaban [Xarelto] 15 mg PO PC-SUPPER 06/03/16 08/29/16 History Ipratropium [place] 0.06%Nasal 2 spray EA NOSTRIL DAILY PRN 07/18/16 08/29/16 History [Atrovent Nasal 0.06%] HYDROcodone/APAP 5-325MG [[place] 1 tab PO Q4HR PRN 08/29/16 08/29/16 History 5-325] Allergies Allergy/AdvReac Type Severity Reaction Status Date / Time morphine AdvReac shaking Verified 08/29/16 12:01 Physical Examination - Vital Signs Vital Signs: Vital Signs Temp Pulse Pulse Resp BP BP BP 08/30/16 20:18 0 L 0 L 0/0 08/30/16 20:17 0 L 0 L 140/66 08/30/16 20:16 0 L 0 L 140/66 08/30/16 20:15 0 L 0 L 140/66 08/30/16 20:14 26 L 0 L 140/66 08/30/16 20:13 27 L 0 L 140/66 08/30/16 20:12 16 L 0 L 140/66 08/30/16 20:11 32 L 40 H 140/66 08/30/16 20:10 30 L 0 L 140/66 08/30/16 20:00 97 28 H 135/89 08/30/16 19:50 99.1 F 101 H 45 H 135/89 08/30/16 19:40 130 H 27 H 126/87 08/30/16 19:30 128 H 46 H 149/88 08/30/16 19:20 112 H 136/102 08/30/16 19:17 132 H 136/102 08/30/16 18:58 98.3 F 99 24 08/30/16 16:00 98.0 F 81 18 122/80 08/30/16 12:10 120/79 100/66 08/30/16 12:00 98.6 F 86 18 08/30/16 08:00 98.2 F 88 18 08/30/16 04:00 98.1 F 81 18 08/30/16 00:00 99.1 F 94 18 BP BP Pulse Ox 08/30/16 20:18 08/30/16 20:17 08/30/16 20:16 72 L 08/30/16 20:15 63 L 08/30/16 20:14 08/30/16 20:13 08/30/16 20:12 08/30/16 20:11 42 L 08/30/16 20:10 51 L 08/30/16 20:00 86 L 08/30/16 19:50 90 L 08/30/16 19:40 88 L 08/30/16 19:30 97 08/30/16 19:20 85 L 08/30/16 19:17 08/30/16 18:58 119/68 93 L 08/30/16 16:00 96 08/30/16 12:10 132/75 08/30/16 12:00 132/75 08/30/16 08:00 113/79 97 08/30/16 04:00 124/71 08/30/16 00:00 127/75 Intake and Output 08/30/16 08/30/16 08/30/16 06:59 14:59 22:59 Intake Total 316.000 750 Output Total 200 Balance 316.000 550 Intake: Intake, IV Titration 316.000 Amount Heparin Sodium,Porcine/ 316.000 D5w Pmx 25,000 unit In Dextrose/Water 1 500ml. bag @ 20 mls/hr IV .Q24H [facility] Rx#:[id number] Oral 750 Output: Urine 200 Other: Voiding Method Diaper Diaper Diaper Incontinent Incontinent Incontinent # Voids 3 2 Weight 103 kg 103 kg Patient Weight 08/31/16 06:59 Weight 103 kg Results - Laboratory Findings CBC and BMP: 08/30/16 06:08 08/30/16 06:08 Abnormal Lab Findings: Abnormal Labs 08/29/16 08/29/16 08/29/16 13:03 13:03 13:03 WBC 12.2 H RBC 4.15 L Hgb 10.8 L Hct 35.7 L MCHC 30.3 L RDW 16.0 H Plt Count 119 L Neutrophils # 10.7 H Lymphocytes # 0.6 L PT APTT Sodium 132 L Carbon Dioxide 21 L Glucose 131 H POC Glucose (mg/dL) Calcium 8.2 L Iron % Saturation Total Bilirubin 2.2 H Alkaline Phosphatase 343 H Troponin I 0.391 H* Total Protein 5.5 L Albumin 2.8 L HDL Cholesterol Urine Protein Urine Blood Urine RBC Urine Mucus 08/29/16 08/29/16 08/29/16 13:03 14:00 18:16 WBC RBC Hgb Hct MCHC RDW Plt Count Neutrophils # Lymphocytes # PT 16.3 H APTT Sodium Carbon Dioxide Glucose POC Glucose (mg/dL) Calcium Iron % Saturation Total Bilirubin Alkaline Phosphatase Troponin I 0.314 H* Total Protein Albumin HDL Cholesterol Urine Protein Trace H Urine Blood Small H Urine RBC 10 H Urine Mucus Rare H 08/29/16 08/29/16 08/30/16 18:16 22:25 01:06 WBC RBC Hgb Hct MCHC RDW Plt Count Neutrophils # Lymphocytes # PT APTT 51.4 H Sodium Carbon Dioxide Glucose POC Glucose (mg/dL) Calcium Iron 15 L % Saturation 4.6 L Total Bilirubin Alkaline Phosphatase Troponin I 0.334 H* Total Protein Albumin HDL Cholesterol Urine Protein Urine Blood Urine RBC Urine Mucus 08/30/16 08/30/16 08/30/16 06:08 06:08 06:08 WBC RBC 4.08 L Hgb 10.5 L Hct 35.0 L MCHC 30.1 L RDW 15.9 H Plt Count 122 L Neutrophils # Lymphocytes # 0.9 L PT APTT 42.4 H Sodium 133 L Carbon Dioxide Glucose 115 H POC Glucose (mg/dL) Calcium 8.0 L Iron % Saturation Total Bilirubin 1.7 H Alkaline Phosphatase 306 H Troponin I Total Protein 4.8 L Albumin 2.4 L HDL Cholesterol 34 L Urine Protein Urine Blood Urine RBC Urine Mucus 08/30/16 19:19 WBC RBC Hgb Hct MCHC RDW Plt Count Neutrophils # Lymphocytes # PT APTT Sodium Carbon Dioxide Glucose POC Glucose (mg/dL) 103 H Calcium Iron % Saturation Total Bilirubin Alkaline Phosphatase Troponin I Total Protein Albumin HDL Cholesterol Urine Protein Urine Blood Urine RBC Urine Mucus
--- NOTE | 2016-08-30 22:38 | MR ---
EXAMINATION TYPE: MR MRCP DATE OF EXAM: 08/30/2016 COMPARISON: CT 08/02/2016 and MRI 12/21/2015 HISTORY: 85-year-old male elevated bilirubin and history of pancreatic cancer. TECHNIQUE: Multiplanar, multisequence images of the abdomen are obtained without IV contrast. IV T2-w eighted images of the pancreaticobiliary system for MRCP purposes. 3-D rotational reconstructions wer e generated on a dedicated independent workstation. FINDINGS: There are severe motion artifacts degrading the exam. Redemonstrated large cyst within the left hepat ic lobe measuring up to 10 cm. There appears to be moderate abdominal ascites now. T2 weighted images suggest multiple new hepatic lesions measuring up to 2.2 cm in the right liver lob e and 3.3 cm and the left liver lobe. Many of these are obscured by the degree of motion and artifact s. The pancreatic tail and a portion of the pancreatic body is barely visualized. Suspect some underlyin g postsurgical changes such as Whipple. This is not well delineated due to artifacts. Reconstructed MRCP images suggest central intrahepatic biliary ductal dilatation and ductal cut off a t the hilum. Additional anasarca type changes with edema throughout the subcutaneous and intra-abdominal fat. Exam otherwise nondiagnostic IMPRESSION: 1. Severe motion and artifacts. Exam is nearly nondiagnostic. 2. There is moderate ascites, anasarca, multiple hepatic lesions measuring up to 3.3 cm concerning fo r metastatic disease, and cut off of the biliary system in the central liver concerning for a portahe patic mass or lymphadenopathy, probable recurrent pancreatic cancer. 3. Query underlying Whipple procedure.
--- NOTE | 2016-10-13 14:58 | P.DS ---
Providers Date of admission: 08/29/16 14:35 Expected date of discharge: 08/30/16 Attending physician: Daksha Arce Consults: 08/29/16 14:35 Consult Physician Urgent Consulting Provider: Trey Man Consult Reason/Comments: nstemi Do you want consulting provider notified?: Yes 08/29/16 15:57 Consult Physician Routine Consulting Provider: Lois Mejia Consult Reason/Comments: elevated bilirubin Do you want consulting provider notified?: Yes 08/30/16 12:15 Consult Physician Routine Consulting Provider: Yaakov Boles Consult Reason/Comments: pancreatic cancer Do you want consulting provider notified?: Yes 08/30/16 18:57 Consult Physician Stat Consulting Provider: Lu Mullen Consult Reason/Comments: CVA Do you want consulting provider notified?: Yes Primary care physician: Daksha Arce [facility] Course: Discharge diagnosis and summary Preliminary cause of : acute non-ST elevated NH and recurrent pancreatic cancer 1. Acute non-ST elevated myocardial infarction: First Troponin 0.391. Awaiting repeat troponins. Continue the IV heparin and aspirin. Cardiology has been consulted. Last heart catheterization July 2016 revealing mild disease in the LAD 2. Generalized weakness, decreased activity and fatigue. Possibly related to an acute NH. No evidence of any acute infection. No evidence of cellulitis on the great toe. Chest x-ray negative for pneumonia. Urinalysis negative 3. Anemia with hemoglobin of 10.8 check iron studies. No evidence of active bleeding 4. Thrombocytopenia: Platelet count of 119. Repeat labs in a.m. 5. Severe protein calorie malnutrition: Patient will be started on Ensure TID. His protein deficiency may contribute to some of his lower extremity edema. Continue to monitor 6. Bilateral lower extremity edema with some mild shortness of breath. Check BNP level. Chest x-ray showed suspected small effusion 7. History of pulmonary emboli on 2 separate occasions, a right lower extremity DVT. Has [place] filter placed in 1995 and had been on Xarelto at home. Xarelto currently on hold while on IV heparin 8. History of pancreatic cancer status post Whipple procedure in 2015 with chemo treatment ending in April 2016 9. Paroxysmal atrial flutter: On Xarelto on amiodarone at home. Resume the amiodarone 10. Hypothyroidism continue Synthroid 11. Hyperbilirubinemia: Total bilirubin 2.2. Consult GI service Hospital course This is a 85-year-old male with a known past medical history of pancreatic cancer status post Whipple procedure and chemotherapy treatment. Last chemotherapy treatment was in April. Also has some spots on his liver that are being followed by oncology. He is scheduled to see Dr. Stoll and have a CAT scan of the abdomen in October. Patient also has a history of atrial flutter , 2 2 separate episodes of PEs, right leg DVT, hypertension, CVA and hyperlipidemia. and daughter at bedside answering many of the questions. On his reported the patient has not been feeling well over the last few days he' s been increasingly getting weaker more fatigued and sleepy. Eyes had decreased activity level and decrease in appetite. Family became concerned and patient was brought into the emergency room via ambulance. Patient also reports a fall a week ago he had stubbed his left toe. No loss of consciousness but he also had hit the his chest wall. At this time patient complains of no chest pain. He doesn't occasional shortness of breath. And a mild cough. Denies any fever or sweats. He does admit to having some chills. Denies any nausea or vomiting. Reports having bowel movements. Denies any burning with urination. Chest x-ray shows a suspected small effusion no evidence of pneumonia. EKG shows sinus rhythm with PACs. Troponin elevated at 0.391 patient was started on IV heparin in the emergency room and cardiology has been consulted for a possible non-ST elevated myocardial infarction. Last heart catheterization was in July 2016 showing mild disease in the LAD and cardiology had recommended medical management. Patient was seen in the emergency room. There is reported no change in medications. Patient seen by both cardiology and GI service. Cardiology discontinued the IV heparin and aspirin. and restarted patient's Xarelto. GI service ordered an MRCP which showed moderate ascites, anasarca, multiple hepatic lesions measuring up to 3.3 cm concerning for metastatic disease, and cut off of the biliary in the central liver concerning for portal hepatic masses or lymphadenopathy, probable recurrent pancreatic cancer. Patient had increasing confusion a computed tomography scan of the brain was completed showing no acute changes. Neurology was consulted. However patient was sent to the ICU and then made comfort care. Patient passed way on 08/30/2016. Please refer to chart for any further details I am only dictating this report for Dr. Arce. I did not see the patient on this date of service Patient Condition at Discharge: Serious Plan - Discharge Summary New Discharge Prescriptions: No Action Latanoprost Ophth [Xalatan 0.005%] 1 drops BOTH EYES HS Pregabalin [Lyrica] 75 mg PO PC-LUNCH Levothyroxine Sodium [Synthroid] 50 mcg PO AC-BRKFST Temazepam [Restoril] 15 mg PO HS PRN PRN Reason: sleep NIFEdipine [NIFEdipine ER] 60 mg PO PC-BRKFST Omeprazole 20 mg PO DAILY PRN PRN Reason: GERD Furosemide [Lasix] 40 mg PO PC-LUNCH Amiodarone [Cordarone] 100 mg PO PC-BRKFST Aspirin [Adult Low Dose Aspirin EC] 81 mg PO PC-BRKFST Simvastatin [Zocor] 20 mg PO HS Docusate [Colace] 100 mg PO PC-SUPPER Rivaroxaban [Xarelto] 15 mg PO PC-SUPPER L.acidoph,Paracasei, B.lactis [Probiotic] 1 cap PO PC-SUPPER Polyethylene Glycol 3350 [Miralax] 17 gm PO PC-BRKFST Ipratropium [place] 0.06%Nasal [Atrovent Nasal 0.06%] 2 spray EA NOSTRIL DAILY PRN PRN Reason: Nasal Congestion HYDROcodone/APAP 5-325MG [[place] 5-325] 1 tab PO Q4HR PRN PRN Reason: Pain Discharge Medication List Latanoprost Ophth [Xalatan 0.005%] 1 drops BOTH EYES HS 12/31/13 [History] Pregabalin [Lyrica] 75 mg PO PC-LUNCH 12/31/13 [History] Levothyroxine Sodium [Synthroid] 50 mcg PO AC-BRKFST 03/28/14 [History] Furosemide [Lasix] 40 mg PO PC-LUNCH 12/20/15 [History] NIFEdipine [NIFEdipine ER] 60 mg PO PC-BRKFST 12/20/15 [History] Omeprazole 20 mg PO DAILY PRN 12/20/15 [History] Temazepam [Restoril] 15 mg PO HS PRN 12/20/15 [History] Amiodarone [Cordarone] 100 mg PO PC-BRKFST 03/22/16 [History] Aspirin [Adult Low Dose Aspirin EC] 81 mg PO PC-BRKFST 03/22/16 [History] Simvastatin [Zocor] 20 mg PO HS 03/22/16 [History] Docusate [Colace] 100 mg PO PC-SUPPER 06/03/16 [History] L.acidoph,Paracasei, B.lactis [Probiotic] 1 cap PO PC-SUPPER 06/03/16 [History] Polyethylene Glycol 3350 [Miralax] 17 gm PO PC-BRKFST 06/03/16 [History] Rivaroxaban [Xarelto] 15 mg PO PC-SUPPER 06/03/16 [History] Ipratropium [place] 0.06%Nasal [Atrovent Nasal 0.06%] 2 spray EA NOSTRIL DAILY PRN 07/18/16 [History] HYDROcodone/APAP 5-325MG [[place] 5-325] 1 tab PO Q4HR PRN 08/29/16 [History] Follow up Appointment(s)/Referral(s): Daksha Arce MD [Primary Care Provider] - 1-2 days Discharge Disposition: - Preliminary Cause of Preliminary Cause of : Acute non-ST elevated NH and recurrent pancreatic cancer
--- NOTE | 2016-10-20 11:41 | CDI ---
In responding to this query, please exercise your independent professional judgment. The [facility] Coding Staff and Clinical Documentation Specialists appreciate your assistance in clarifying documentation, maintaining compliance with coding guidelines, accurately documenting patients condition and capturing severity of illness. The fact that a question is asked does not imply that any particular answer is desired or expected. Communication forms are a method of clarifying documentation and are not made part of the Legal Health Record. Thank you in advance for your clarification. Last Revision, May 2015 Elvira Catherine [address] [place] [address] Documentation Clarification Form Mortality review Date: 10/20/2016 11:31:00 AM From: Machelle Herrera RN, CCDS Admit Date: 08/29/2016 2:35:00 PM Patient Name: Basilio Oreilly Visit Number: [id number] Dr. Daksha Arce/ Nara Villalobos The patient presented with the following respiratory symptoms before he was made comfort care Documentation and location in medical record included: History/Risk Factors: Acute NSTEMI, ANEMIA Clinical Indicators: 08/30 Nursing Note: "pt. arrived on unit at 1914 transported by RN on non- rebreather, pt. Gasping, tachypneic and labored for breath. Pale and not responding to verbal prompts, tachycardic of 130's. Mediport IV patent, left IV patent, family at bedside as well as in waiting room requested patient be made comfort care, Dr. Arce notified and comfort care orders received. Dr Mullen at bed side at 2004." Vital signs/Pulse oximetry: 08/30 after MRCP: HR 132, b/p 136/102, spo2 85% Treatment: IV MS Gtt Continuous Pulse ox per unit protocol Vent/BiPap Pt was on 100% NRB sating 63%, pt family opted for comfort care O2: 100% NRB In your professional opinion, can you please clarify if these findings signify one of the following conditions? Acuity: o Acute o Chronic o Acute on Chronic Respiratory Status: o Respiratory failure with hypercapnia o Respiratory failure with hypoxia o Acute Respiratory Distress o Other Diagnosis, please specify o Unable to determine Please document in your progress notes and discharge summary in order to capture severity of illness and risk of mortality. Include clinical findings that support your diagnosis. FYI: Press F11 to launch patient chart. Place X here if this finding has no clinical significance, is not applicable or if you are not able to provide any additional documentation. MTDD
== END 2016-08-30 20:45 | disposition expired ==
LOC: EC 11:37 → 6SEL 14:35 → 5ONC 08-30 17:21 → 6ICU 08-30 19:09
PROVIDERS: ADMIT Internal Medicine; ATTEND Internal Medicine
DX: I21.4 Non-ST elevation (NSTEMI) myocardial infarction (principal); E43 Unspecified severe protein-calorie malnutrition; J96.01 Acute respiratory failure with hypoxia; C78.7 Secondary malignant neoplasm of liver and intrahepatic bile duct; R18.8 Other ascites; I48.92 Unspecified atrial flutter; D69.6 Thrombocytopenia, unspecified; C25.9 Malignant neoplasm of pancreas, unspecified; I48.0 Paroxysmal atrial fibrillation; D64.9 Anemia, unspecified; I10 Essential (primary) hypertension; Z51.5 Encounter for palliative care; Z66 Do not resuscitate; E03.9 Hypothyroidism, unspecified; K21.9 Gastro-esophageal reflux disease without esophagitis; S90.122A Contusion of left lesser toe(s) without damage to nail, initial encounter; S20.219A Contusion of unspecified front wall of thorax, initial encounter; I25.10 Atherosclerotic heart disease of native coronary artery without angina pectoris; I49.1 Atrial premature depolarization; K59.00 Constipation, unspecified; R68.83 Chills (without fever); G57.93 Unspecified mononeuropathy of bilateral lower limbs; R42 Dizziness and giddiness; R05 Cough; E78.5 Hyperlipidemia, unspecified; I73.9 Peripheral vascular disease, unspecified; N40.1 Benign prostatic hyperplasia with lower urinary tract symptoms; N39.498 Other specified urinary incontinence; I69.328 Other speech and language deficits following cerebral infarction; H40.9 Unspecified glaucoma; R53.1 Weakness; R79.89 Other specified abnormal findings of blood chemistry; R29.717 NIHSS score 17; Z86.718 Personal history of other venous thrombosis and embolism; Z86.711 Personal history of pulmonary embolism; Z90.411 Acquired partial absence of pancreas; Z82.49 Family history of ischemic heart disease and other diseases of the circulatory system; Z87.891 Personal history of nicotine dependence; Z90.3 Acquired absence of stomach [part of]; Z85.828 Personal history of other malignant neoplasm of skin; Z79.899 Other long term (current) drug therapy; Z88.5 Allergy status to narcotic agent; Z92.21 Personal history of antineoplastic chemotherapy; Z79.82 Long term (current) use of aspirin; Z79.01 Long term (current) use of anticoagulants; Z79.891 Long term (current) use of opiate analgesic; Z71.3 Dietary counseling and surveillance; Z68.27 Body mass index [BMI] 27.0-27.9, adult; Z98.42 Cataract extraction status, left eye; Z98.41 Cataract extraction status, right eye; Z90.49 Acquired absence of other specified parts of digestive tract; Z95.828 Presence of other vascular implants and grafts; W01.0XXA Fall on same level from slipping, tripping and stumbling without subsequent striking against object, initial encounter
CPT/HCPCS: 36415; 70450; 71020; 74181; 80053; 80061; 81001; 82550; 82553; 82728; 83540; 83550; 83735; 83880; 84100; 84443; 84484; 85025; 85610; 85730; 87086; 93005; 96361; 96365; 96376; 99291